=== PATIENT | female | born 1955 | race Caucasian/White ===

== ENCOUNTER → 2019-06-12 | Outpatient (CLI) | payer OTHER, MEDICARE ==
[2019-06-12 13:49] LABS: ANION GAP 9 (5-19); BLOOD UREA NITROGEN 27 mg/dL (7-20); CALCIUM 10.1 mg/dL (8.4-10.2); CARBON DIOXIDE 29 mmol/L (22-30); CHLORIDE 97 mmol/L (98-107); GLUCOSE 86 mg/dL (75-110); POTASSIUM 4.5 mmol/L (3.6-5.0)
== END ==
LOC: OD 12:52
PROVIDERS: ATTEND Family Medicine Geriatric Medicine
DX: M79.673 Pain in unspecified foot (principal); Z79.899 Other long term (current) drug therapy
CPT/HCPCS: 36415; 80048; 84550

== ENCOUNTER → 2019-10-16 | Outpatient (CLI) | payer OTHER, MEDICARE | LOC: OD 11:24 | PROVIDERS: ATTEND Family Medicine Geriatric Medicine | DX: J02.9 Acute pharyngitis, unspecified (principal); Z79.899 Other long term (current) drug therapy | CPT/HCPCS: 87070; 87880 ==

== ENCOUNTER → 2019-11-16 | Outpatient (CLI) | payer OTHER, MEDICARE ==
--- NOTE | 2019-11-16 11:56 | WOMENS IMAGING REPORT ---
EXAM DESCRIPTION: BILAT SCREENING MAMMO W/CAD IMAGES COMPLETED DATE/TIME: 11/16/2019 10:47 am REASON FOR STUDY: Z12.31 SCREENING MAMMO Z12.31 ENCNTR SCREEN MAMMOGRAM FOR MALIGNANT NEOPLASM OF B RE COMPARISON: None. EXAM PARAMETERS: Standard craniocaudal and mediolateral oblique views of each breast recorded using digital acquisition. Read with the assistance of CAD. .[facility] - Respi Draw Bench Operator Helper Version 9.2 LIMITATIONS: None. FINDINGS: No suspicious masses, suspicious calcifications or architectural distortion. No areas of c oncern. IMPRESSION: NEGATIVE MAMMOGRAM. BIRADS 1 BREAST DENSITY: d. The breasts are extremely dense, which lowers the sensitivity of mammography. BIRAD: ASSESSMENT: 1 NEGATIVE RECOMMENDATION: ROUTINE SCREENING COMMENT: The patient has been notified of the results by letter per MQSA requirements. Additional no tification policies are in place for contacting patient with suspicious or incomplete findings. Quality ID #[id number]: The [employer] recommends an annual screening mammogram for women aged 40 years or over. This facility utilizes a reminder system to ensure that all patients receive reminder letters, and/or direct phone calls for appointments. This includes reminders for routine scr eening mammograms, diagnostic mammograms, or other Breast Imaging Interventions when appropriate. Th is patient will be placed in the appropriate reminder system. TECHNICAL DOCUMENTATION: FINDING NUMBER: (1) ASSESSMENT: (1) JOB ID: [id number] 2010 [employer]- All Rights Reserved Reading location - IP/workstation name: [email or web address]
== END ==
LOC: WI 10:15
PROVIDERS: ATTEND Family Medicine Geriatric Medicine
DX: Z12.31 Encounter for screening mammogram for malignant neoplasm of breast (principal)
CPT/HCPCS: 77067

== ENCOUNTER 2019-12-24 12:11 | Inpatient (IN) | payer OTHER, MEDICARE ==
[2019-12-24 15:41] LABS: ABSOLUTE LYMPHOCYTES (AUTO) 0.5 10^3/uL (0.5-4.7); ABSOLUTE MONOCYTES (AUTO) 0.3 10^3/uL (0.1-1.4); ABSOLUTE NEUT (AUTO) 4.6 10^3/uL (1.7-8.2); BASOPHILS % (AUTO) 0.5 % (0-2); EOSINOPHILS % (AUTO) 0.9 % (0-6); HEMATOCRIT 32.2 % (36.0-47.0); LYMPHOCYTES % (AUTO) 9.4 % (13-45); MEAN CORPUSCULAR HEMOGLOBIN 28.4 pg (27.0-33.4); MEAN CORPUSCULAR HGB CONC 34.1 g/dL (32.0-36.0); MEAN CORPUSCULAR VOLUME 83 fl (80-97); PLATELET COUNT 146 10^3/uL (150-450); RED BLOOD COUNT 3.88 10^6/uL (3.72-5.28); RED CELL DISTRIBUTION WIDTH 14.9 % (11.5-14.0); SEGMENTED NEUTROPHILS % (AUTO) 84.2 % (42-78); TOTAL CELLS COUNTED % (AUTO) 100 %; WHITE BLOOD COUNT 5.4 10^3/uL (4.0-10.5)
--- NOTE | 2019-12-24 16:07 | RADIOLOGY REPORT (SQ) ---
EXAM DESCRIPTION: CHEST SINGLE VIEW IMAGES COMPLETED DATE/TIME: 12/24/2019 3:56 pm REASON FOR STUDY: SOB COMPARISON: 04/23/2014 NUMBER OF VIEWS: One view. TECHNIQUE: Single frontal radiographic view of the chest acquired. LIMITATIONS: None. FINDINGS: LUNGS AND PLEURA: No opacities, masses or pneumothorax. No pleural effusion. Attenuated bl ood vessels and flattened nicole-diaphragms. MEDIASTINUM AND HILAR STRUCTURES: No masses. Contour normal. HEART AND VASCULAR STRUCTURES: Heart normal in size. Normal vasculature. BONES: No acute findings. HARDWARE: None in the chest. OTHER: No other significant finding. IMPRESSION: COPD. NO ACUTE RADIOGRAPHIC FINDING IN THE CHEST. TECHNICAL DOCUMENTATION: JOB ID: [id number] 2010 [employer]- All Rights Reserved Reading location - IP/workstation name: [email or web address]
--- NOTE | 2019-12-24 16:51 | ER Document Report ---
ED General - General Chief Complaint: Shortness Of Breath Stated Complaint: SHORTNESS OF BREATH Time Seen by Provider: 12/24/19 14:59 Primary Care Provider: PRINCE GTZ MD [Primary Care Provider] - Follow up as needed Mode of Arrival: Ambulatory Information source: Patient TRAVEL OUTSIDE OF THE [place] IN LAST 30 DAYS: No - HPI Notes: Patient comes in states she has had cough congestion for several days. She states she is had fever just 1 time this morning. It was subjective. She has had some minor chest discomfort over the last 2 to 3 days. It is intermittent and crampy. It radiates across her chest. It is worse with cough or movement and better with rest. She has had some mild shortness of breath. She has had mainly a dry cough. She denies any known covert virus exposures. She states she did have a negative covered test in an outlying facility several days ago. No vomiting or diarrhea. She states she is a former smoker and does have a history of COPD. She states she has not received any significant relief from using her inhalers at home. - Related Data Allergies/Adverse Reactions: Sulfa (Sulfonamide Antibiotics) Allergy (Verified 12/24/19 15:22) Past Medical History - General Information source: Patient - Social History Smoking Status: Former Smoker Frequency of alcohol use: Rare Drug Abuse: None Family History: Reviewed & Not Pertinent Patient has homicidal ideation: No Review of Systems - Review of Systems Constitutional: Chills, Fever, Malaise, Weakness Cardiovascular: Chest pain. denies: Palpitations Respiratory: Cough, Short of breath -: Yes All other systems reviewed and negative Physical Exam - Vital signs Vitals: Temp Pulse Resp BP Pulse Ox 98.8 F 63 16 119/67 99 12/24/19 14:06 12/24/19 14:06 12/24/19 14:06 12/24/19 14:06 12/24/19 14:06 Interpretation: Normal - General General appearance: Appears well, Alert - HEENT Head: Normocephalic, Atraumatic Eyes: Normal Pupils: PERRL - Respiratory Respiratory status: No respiratory distress Chest status: Nontender Breath sounds: Rhonchi - Bilateral Chest palpation: Normal - Cardiovascular Rhythm: Regular Heart sounds: Normal auscultation Murmur: No - Abdominal Inspection: Normal Distension: No distension Bowel sounds: Normal Tenderness: Nontender Organomegaly: No organomegaly - Back Back: Normal, Nontender - Extremities General upper extremity: Normal inspection, Nontender, Normal color, Normal ROM, Normal temperature General lower extremity: Normal inspection, Nontender, Normal color, Normal ROM, Normal temperature, Normal weight bearing. No: Sandra's sign - Neurological Neuro grossly intact: Yes Cognition: Normal Orientation: AAOx4 [place] Coma Scale Eye Opening: Spontaneous [place] Coma Scale Verbal: Oriented [place] Coma Scale Motor: Obeys Commands [place] Coma Scale Total: 15 Speech: Normal Motor strength normal: LUE, RUE, LLE, RLE Sensory: Normal - Psychological Associated symptoms: Normal affect, Normal mood - Skin Skin Temperature: Warm Skin Moisture: Dry Skin Color: Normal Course - Re-evaluation Re-evalutation: 12/24/19 18:10 Patient presented with shortness of breath and worsening cough and subjective fevers. Initial vital signs were not significantly remarkable laboratories were only remarkable for a low sodium however patient was tell me that her sodium is always low. When I did a set of repeat vitals for discharge patient's fever is now 103. Patient is slightly tachypneic approximately 22 to 24 breaths/min. She is not tachycardic but she is on a beta-elizabet. Although she tested negative for COVID 2 days ago her symptoms seem somewhat suspicious of COVID. She has no known exposures. In addition I am going to give her some fluids to help with her hyponatremia. On review the last sodium here was in May of this year and it was normal. A CT scan is also pending. Patient's pneumonia scores, curb 65 and port are both borderline for admission. Given the entire clinical picture of suspected COVID, increasing fever, saturations going from 98% on room air to 94% on room air now and slightly increasing tachypnea as well as with hyponatremia it seems prudent to have patient placed in the hospital for further evaluation and treatment. - Vital Signs Vital signs: Temp Pulse Resp BP Pulse Ox 98.8 F 63 16 119/67 99 12/24/19 14:06 12/24/19 14:06 12/24/19 14:06 12/24/19 14:06 12/24/19 14:06 - Laboratory Result Diagrams: 12/24/19 16:25 12/24/19 16:25 Laboratory results interpreted by me: 12/24/19 12/24/19 16:25 16:25 Hgb 11.2 L Hct 33.3 L RDW 14.5 H Plt Count 141 L Sodium 125.3 L Chloride 90 L Glucose 72 L AST 84 H ALT 45 H - Diagnostic Test Radiology reviewed: Image reviewed, Reports reviewed Discharge - Discharge Clinical Impression: Suspected COVID-19 virus infection, Hyponatremia Fever Qualifiers: Fever type: unspecified Qualified Code(s): R50.9 - Fever, unspecified Condition: Serious Disposition: ADMITTED INPATIENT Admitting Provider: Domingo (Hospitalist) Unit Admitted: Medical Floor Referrals: PRINCE GTZ MD [Primary Care Provider] - Follow up as needed
[2019-12-24 17:03] LABS: ALBUMIN 4.4 g/dL (3.5-5.0); ALKALINE PHOSPHATASE 69 U/L (38-126); ANION GAP 7 (5-19); ASPARTATE AMINO TRANSFERASE 84 U/L (14-36); BILIRUBIN,TOTAL 0.6 mg/dL (0.2-1.3); BLOOD UREA NITROGEN 14 mg/dL (7-20); CALCIUM 8.9 mg/dL (8.4-10.2); CARBON DIOXIDE 28 mmol/L (22-30); CHLORIDE 90 mmol/L (98-107); GLUCOSE 72 mg/dL (75-110); POTASSIUM 4.2 mmol/L (3.6-5.0); TOTAL PROTEIN 7.9 g/dL (6.3-8.2)
[2019-12-24 17:55] LABS: HEMATOCRIT 33.3 % (36.0-47.0); HEMOGLOBIN 11.2 g/dL (12.0-15.5); MEAN CORPUSCULAR HGB CONC 33.6 g/dL (32.0-36.0); MEAN CORPUSCULAR VOLUME 83 fl (80-97); PLATELET COUNT 141 10^3/uL (150-450); RED BLOOD COUNT 3.99 10^6/uL (3.72-5.28); RED CELL DISTRIBUTION WIDTH 14.5 % (11.5-14.0); WHITE BLOOD COUNT 5.8 10^3/uL (4.0-10.5)
[2019-12-24] MEDS ORDERED: AZITHROMYCIN 250 MG TABLET PO ONE (18:01)
[2019-12-24] MEDS ORDERED: NORMAL SALINE 1000 ML 1,000 ML IV ONE (18:01)
[2019-12-24] MEDS ORDERED: CEFTRIAXONE 2 GM/D5W RTU 2 GM/50 ML RTUPB IV ONE (18:01)
[2019-12-24 19:04] LABS: C-REACTIVE PROTEIN 87.1 mg/L (<10.0)
[2019-12-24] MEDS ORDERED: ALBUTEROL SULFATE 0.083% NEB 2.5 MG/3 ML AMPUL NEB PRN (19:19)
[2019-12-24] MEDS ORDERED: ACETAMINOPHEN 325 MG TABLET PO PRN (19:19)
[2019-12-24] MEDS ORDERED: PROMETHAZINE HCL INJ 25 MG/1 ML VIAL IV PRN (19:19)
[2019-12-24] MEDS ORDERED: MAG HYDROX/AL HYDROX/SIMETH SUSP 30 ML UDCUP PO PRN (19:19)
[2019-12-24] MEDS ORDERED: ALBUTEROL SULFATE HFA (90 MCG/PUFF) 8 GM MDI IH PRN (19:31)
[2019-12-24] MEDS ORDERED: DEXTROSE 50%-WATER 25 GM/50 ML DISP.SYRIN IV PRN ×2 (19:39)
[2019-12-24] MEDS ORDERED: GLUCAGON,HUMAN RECOMB 1 MG INJ IM PRN (19:39)
[2019-12-24] MEDS ORDERED: DEXTROSE 40% GEL 15 GM TUBE PO PRN ×2 (19:39)
[2019-12-24] MEDS ORDERED: ALBUTEROL SULFATE HFA (90 MCG/PUFF) 200 PUFF/8.5 GM MDI IH PRN (19:48)
[2019-12-24 19:56] LABS: ABSOLUTE LYMPHOCYTES# (MANUAL) 0.5 10^3/uL (0.5-4.7); ABSOLUTE MONOCYTES # (MANUAL) 0.3 10^3/uL (0.1-1.4); BASOPHILS % (MANUAL) 0 % (0-2); EOSINOPHILS % (MANUAL) 0 % (0-6); LYMPHOCYTES % (MANUAL) 9 % (13-45); MONOCYTES % (MANUAL) 5 % (3-13); SEGMENTED NEUTROPHILS % (MAN) 86 % (42-78); TOTAL CELLS COUNTED 100; TOXIC VACUOLATION PRESENT
[2019-12-24 19:57] LABS: ANISOCYTOSIS SLIGHT
[2019-12-24 19:58] LABS: BURR CELLS SLIGHT; PLATELET COMMENT DECREASED
--- NOTE | 2019-12-24 20:09 | PDOC H&P ---
History of Present Illness Admission Date/PCP: 12/24/19 19:30 PRINCE GTZ MD Patient complains of: Shortness of breath History of Present Illness: ALONZO DAWKINS is a 64 year old female with a history of coronary artery disease, COPD, hyperlipidemia, depression, diabetes mellitus and hyponatremia presents with several weeks of increasing shortness of breath. She states that she has been having a cough. Lately it is productive of white sputum. Until today she has been afebrile. She spiked a fever 103.1 F. In the emergency department her white blood cell count is normal at 5.8 but her differential is pending. Her d-dimer is elevated at 2.84 but her ferritin, LDH and C-reactive protein are all pending. Her serum sodium is 125. Her glucose is only 72. With the increasing shortness of breath and fever as well as increased d-dimer the patient has a CT angiogram of the chest pending. She states that she tested negative for Covid-19 at a walk-in clinic several days ago. She did state the result was negative however it has such a low sensitivity she has been tested again. Her chest x-ray is fairly unremarkable but this can be part of an initial presentation of Covid-19. She will be admitted to the hospitalist service. Covid-19 serology is pending. She will be placed on full-strength anticoagulation with her d-dimer above 1.0. LDH, ferritin and C-reactive protein are pending. She will be on a fluid restriction as her sodium is only 125. Past Medical History Cardiac Medical History: Reports: Coronary Artery Disease - 1 stent, Hyperlipidema, Hypertension Pulmonary Medical History: Reports: Chronic Obstructive Pulmonary Disease (COPD) EENT Medical History: Reports: Cataracts Neurological Medical History: Denies: Ischemic CVA, Multiple Sclerosis Endocrine Medical History: Reports: Diabetes Mellitus Type 1 - Per the patient., Hypothyroidism Renal/ Medical History: Reports: Chronic Kidney Disease, Other - Patient reports chronic kidney disease despite normal renal function Malignancy Medical History: Denies: Breast Cancer, Colorectal Cancer, Liver Cancer, Lung Cancer GI Medical History: Denies: Cirrhosis, Gastroesophageal Reflux Disease, Hiatal Hernia Musculoskeltal Medical History: Denies: Fibromyalgia Skin Medical History: Denies: Eczema, Psoriasis Psychiatric Medical History: Reports: Depression Traumatic Medical History: Reports: None Hematology: Reports: Anemia - Possible myelodysplasia Past Surgical History Past Surgical History: Reports: Appendectomy, Cardiac Catheterization, Coronary Stent, Thyroidectomy, Tubal Ligation Social History Information Source: Patient Lives with: Spouse/Significant other Smoking Status: Former Smoker Electronic Cigarette use?: No Frequency of Alcohol Use: Rare Hx Recreational Drug Use: No Hx Prescription Drug Abuse: No - Advance Directive Resuscitation Status: Full Code Surrogate healthcare decision maker:: Family History Family History: CAD, DM, Hypertension Parental Family History Reviewed: Yes Children Family History Reviewed: Yes Sibling(s) Family History Reviewed.: Yes Medication/Allergy Allergies/Adverse Reactions: Sulfa (Sulfonamide Antibiotics) Allergy (Verified 12/24/19 15:22) Review of Systems All systems: reviewed and no additional remarkable complaints except as stated Constitutional: PRESENT: fever(s) Respiratory: PRESENT: cough, dyspnea, sputum Psychiatric: PRESENT: depression Allergic/Immunologic: PRESENT: seasonal rhinorrhea Physical Exam Vital Signs: Temp Pulse Resp BP Pulse Ox 103.1 F H 82 22 H 132/96 H 94 12/24/19 17:58 12/24/19 17:58 12/24/19 17:58 12/24/19 17:58 12/24/19 17:58 Intake & Output 12/23/19 12/24/19 12/25/19 06:59 06:59 06:59 Intake Total 50 Balance 50 Weight 79.832 kg General appearance: PRESENT: cooperative, mild distress, well-developed. ABSENT: disheveled Head exam: PRESENT: atraumatic, normocephalic Eye exam: PRESENT: conjunctiva pink, EOMI. ABSENT: scleral icterus Ear exam: PRESENT: normal external ear exam. ABSENT: bleeding, drainage Mouth exam: PRESENT: moist, tongue midline Neck exam: PRESENT: other - Incision scar from thyroidectomy. ABSENT: carotid bruit, JVD, lymphadenopathy Respiratory exam: PRESENT: clear to auscultation luz maria, symmetrical, tachypnea. ABSENT: accessory muscle use, chest wall tenderness, rales, rhonchi, wheezes Cardiovascular exam: PRESENT: RRR, +S1, +S2. ABSENT: bradycardia, diastolic murmur, irregular rhythm, systolic murmur, tachycardia Pulses: PRESENT: normal radial pulses, normal dorsalis pedis pul GI/Abdominal exam: PRESENT: normal bowel sounds, soft. ABSENT: distended, guarding, tenderness Rectal exam: PRESENT: deferred Gentrourinary exam: ABSENT: indwelling catheter Extremities exam: PRESENT: full ROM. ABSENT: joint swelling, pedal edema Musculoskeletal exam: PRESENT: ambulatory, normal inspection. ABSENT: deformity, dislocation Neurological exam: PRESENT: alert, awake, oriented to person, oriented to place, oriented to time, oriented to situation, CN II-XII grossly intact. ABSENT: altered, motor sensory deficit Psychiatric exam: PRESENT: appropriate affect. ABSENT: agitated, anxious Focused psych exam: ABSENT: delusional, paranoid, restlessness Skin exam: PRESENT: dry, normal color, warm. ABSENT: rash, urticaria Results Laboratory Results: 12/24/19 16:25 12/24/19 16:25 12/24/19 12/24/19 12/24/19 15:01 15:01 16:25 WBC Cancelled RBC Cancelled Hgb Cancelled Hct Cancelled MCV Cancelled MCH Cancelled MCHC Cancelled RDW Cancelled Plt Count Cancelled Seg Neutrophils % Cancelled Sodium Cancelled 125.3 L Potassium Cancelled 4.2 Chloride Cancelled 90 L Carbon Dioxide Cancelled 28 Anion Gap Cancelled 7 BUN Cancelled 14 Creatinine Cancelled 0.86 Est GFR ( Amer) Cancelled > 60 Est GFR (Non-Af Amer) Cancelled Glucose Cancelled 72 L Calcium Cancelled 8.9 Total Bilirubin Cancelled 0.6 AST Cancelled 84 H Alkaline Phosphatase Cancelled 69 Total Protein Cancelled 7.9 Albumin Cancelled 4.4 12/24/19 16:25 WBC 5.8 RBC 3.99 Hgb 11.2 L Hct 33.3 L MCV 83 MCH 28.0 MCHC 33.6 RDW 14.5 H Plt Count 141 L Seg Neutrophils % Sodium Potassium Chloride Carbon Dioxide Anion Gap BUN Creatinine Est GFR ( Amer) Est GFR (Non-Af Amer) Glucose Calcium Total Bilirubin AST Alkaline Phosphatase Total Protein Albumin Impressions: Chest X-Ray 12/24/19 15:20 IMPRESSION: COPD. NO ACUTE RADIOGRAPHIC FINDING IN THE CHEST. Assessment and Plan - Diagnosis (1) Suspected COVID-19 virus infection Is this a current diagnosis for this admission?: Yes Plan: There are several reasons to suspect Covid-19 including her fever, shortness of breath with cough, elevated d-dimer and elevated AST and ALT. CT angiogram of the chest is still pending. C-reactive protein, ferritin and LDH are also pending. We will treat her as a suspected positive patient with antibiotics, Decadron and supplements. (2) Fever Qualifiers: Fever type: unspecified Qualified Code(s): R50.9 - Fever, unspecified Is this a current diagnosis for this admission?: Yes Plan: Fever along with some of her symptoms and laboratory studies certainly create a high index of suspicion for Covid-19. Acetaminophen for elevated temperature and antibiotics as well as other recommended COVID treatments until the serology returns. We will utilize an albuterol inhaler as opposed to nebulizers. Oxygen by nasal cannula if required. (3) Elevated liver function tests Is this a current diagnosis for this admission?: Yes Plan: She reports rare to occasional glasses of wine. No other indication for elevated transaminases. Transaminitis is 1 of the abnormalities seen in COVID. Continue to monitor. (4) Elevated d-dimer Is this a current diagnosis for this admission?: Yes Plan: Await results of the CT angiogram of the chest and abdomen. Because there is a suspicion of Covid-19 and her d-dimer is greater than 1.0 she will be placed on full anticoagulant therapy with Lovenox 1 mg/kg every 12 hours. (5) COPD (chronic obstructive pulmonary disease) with chronic bronchitis Is this a current diagnosis for this admission?: Yes Plan: The patient reports COPD. She states that she has not had an exacerbation in a long time. She does have an albuterol rescue inhaler at home but has been not on any chronic daily inhaler therapy. She does not use oxygen at home. (6) Coronary artery disease Qualifiers: Coronary Disease-Associated Artery/Lesion type: [place] artery [place] vs. transplanted heart: [place] heart Associated angina: without angina Qualified Code(s): I25.10 - Atherosclerotic heart disease of [place] coronary artery without angina pectoris Is this a current diagnosis for this admission?: Yes Plan: The patient states that she had a stent placed approximately 10 years ago or more. She was following with cardiology but then decided to change practitioners. She states she would be seeing Dr. Frazier at [facility] to establish with new cardiology. We will continue aspirin, statin and her other cardiac medications once reconciled. She will be on a cardiac diet. (7) Hyponatremia Is this a current diagnosis for this admission?: Yes Plan: The patient states that she has chronic kidney disease. Her renal function is normal at this time. I will place her on a fluid restriction and monitor the sodium. (8) Hypertension Qualifiers: Hypertension type: essential hypertension Qualified Code(s): I10 - Essential (primary) hypertension Is this a current diagnosis for this admission?: Yes Plan: The patient cannot remember all of her medications nor the doses. He thinks she is on lisinopril and bisoprolol. Continue antihypertensive medications once they are reconciled. (9) Hypothyroidism, postsurgical Is this a current diagnosis for this admission?: Yes Plan: The patient states that there were lesions on her thyroid that were "premal ignant". She underwent thyroidectomy. Continue levothyroxine. (10) Depression Qualifiers: Depression Type: unspecified Qualified Code(s): F32.9 - Major depressive disorder, single episode, unspecified Is this a current diagnosis for this admission?: Yes Plan: Continue antidepressant. I believe it was citalopram. The patient cannot remember. Await medication reconciliation. (11) Diabetes mellitus Qualifiers: Diabetes mellitus type: type 1 Diabetes mellitus complication status: without complication Qualified Code(s): E10.9 - Type 1 diabetes mellitus without complications Is this a current diagnosis for this admission?: Yes Plan: The patient reports type 1 diabetes mellitus however she mentions no insulin on her medication list. She could not remember all of her medications. Await medication reconciliation from pharmacy. She will be on a controlled carbohydrate diet with Accu-Cheks before meals and bedtime as well as a regular insulin sliding scale. - Time Time Spent with patient: 35 or more minutes Medications reviewed and adjusted accordingly: Yes Anticipated Discharge Disposition: Home, Self Care Anticipated Discharge: Other - Unknown at this time. Pending results of [facility]any[facility] gatTheraVid. - Inpatient Certification Based on my medical assessment, after consideration of the patient's comorbidities, presenting symptoms, or acuity I expect that the services needed warrant INPATIENT care.: Yes I certify that my determination is in accordance with my understanding of Medicare's requirements for reasonable and necessary INPATIENT services [42 CFR 412.3e].: Yes Medical Necessity: Failure to Improve With Outpatient Therapy, Significant Comorbidiites Make Outpatient Treatment Too Risky, Need Close Monitoring Due to Risk of Patient Decompensation, Need For Continuous Telemetry Monitoring, Need for IV Antibiotics Post Hospital Care: D/C Dairy Inspector Documentation
--- NOTE | 2019-12-24 20:22 | RADIOLOGY REPORT (SQ) ---
EXAM DESCRIPTION: CTA chest with contrast CLINICAL HISTORY: 64 years Female, sob/cough COMPARISON: None. TECHNIQUE: Axial images of the chest were performed utilizing intravenous contrast, with sagittal and coronal MIP images and sagittal and coronal reformatted images. This exam was performed according to our departmental dose-optimization program which includes use of Automated Exposure Control, adjustment of the mA and/or kV according to patient size and/or use of iterative reconstruction technique. FINDINGS: There is mild emphysema. No evidence of pulmonary embolus. No evidence of aortic dissection. No evidence of pulmonary infiltrate or pleural effusion. No evidence of mediastinal or hilar adenopathy. IMPRESSION: Mild emphysema.
[2019-12-24] MEDS ORDERED: ATORVASTATIN CALCIUM 40 MG TABLET PO SCH (22:00)
[2019-12-24] MEDS ORDERED: LISINOPRIL 10 MG TABLET PO SCH (22:00)
[2019-12-24] MEDS ORDERED: ASPIRIN 81 MG TABLET, ENT COATED PO SCH (22:00)
[2019-12-24] MEDS: DEXAMETHASONE SOD PHOSPHATE INJ 4 MG/1 ML VIAL IV SCH (22:15)
[2019-12-24] MEDS: MELATONIN 3 MG TABLET PO SCH (22:16)
[2019-12-24] MEDS: INSULIN REG, HUMAN 100 UNIT/ML 3 ML VIAL (PYX) SUBCUT SCH (22:22)
[2019-12-24] MEDS: ENOXAPARIN SODIUM INJ 80 MG/0.8 ML DISP.SYRIN SUBCUT SCH (22:28)
[2019-12-25 05:36] LABS: ABSOLUTE LYMPHOCYTES (AUTO) 0.4 10^3/uL (0.5-4.7); ABSOLUTE MONOCYTES (AUTO) 0.2 10^3/uL (0.1-1.4); ABSOLUTE NEUT (AUTO) 3.9 10^3/uL (1.7-8.2); BASOPHILS % (AUTO) 0.4 % (0-2); EOSINOPHILS % (AUTO) 0.2 % (0-6); HEMATOCRIT 27.4 % (36.0-47.0); HEMOGLOBIN 9.7 g/dL (12.0-15.5); LYMPHOCYTES % (AUTO) 8.5 % (13-45); MEAN CORPUSCULAR HEMOGLOBIN 28.9 pg (27.0-33.4); MEAN CORPUSCULAR HGB CONC 35.3 g/dL (32.0-36.0); MEAN CORPUSCULAR VOLUME 82 fl (80-97); MONOCYTES % (AUTO) 4.9 % (3-13); PLATELET COUNT 112 10^3/uL (150-450); RED BLOOD COUNT 3.35 10^6/uL (3.72-5.28); RED CELL DISTRIBUTION WIDTH 14.6 % (11.5-14.0); TOTAL CELLS COUNTED % (AUTO) 100 %; WHITE BLOOD COUNT 4.5 10^3/uL (4.0-10.5)
[2019-12-25 05:59] LABS: ANION GAP 10 (5-19); BLOOD UREA NITROGEN 14 mg/dL (7-20); CARBON DIOXIDE 22 mmol/L (22-30); CHLORIDE 91 mmol/L (98-107); CHOLESTEROL 122.99 mg/dL (0-200); GLUCOSE 328 mg/dL (75-110); PHOSPHORUS 3.2 mg/dL (2.5-4.5); TRIGLYCERIDES 105 mg/dL (<150)
[2019-12-25 06:08] LABS: DIRECT LDL 46 mg/dL (<100)
[2019-12-25] MEDS: DEXAMETHASONE SOD PHOSPHATE INJ 4 MG/1 ML VIAL IV SCH ×3 (06:10→22:26)
[2019-12-25 06:15] LABS: C-REACTIVE PROTEIN 150.4 mg/L (<10.0)
[2019-12-25] MEDS: ENOXAPARIN SODIUM INJ 80 MG/0.8 ML DISP.SYRIN SUBCUT SCH ×2 (09:06→22:26)
[2019-12-25] MEDS: INSULIN REG, HUMAN 100 UNIT/ML 3 ML VIAL (PYX) SUBCUT SCH ×2 (09:12→11:37)
[2019-12-25] MEDS: ZINC SULFATE 220 MG CAPSULE PO SCH (09:14)
[2019-12-25] MEDS: ASCORBIC ACID 500 MG TABLET PO SCH ×2 (09:14→17:08)
[2019-12-25] MEDS: CHOLECALCIFEROL (D3) 1,000 UNIT (25 MCG) TABLET PO SCH (09:16)
[2019-12-25] MEDS: CEFTRIAXONE 1 GM/D5W RTU 1 GM/50 ML RTUPB IV SCH (10:08)
[2019-12-25] MEDS ORDERED: INSULIN REG, HUMAN 100 UNIT/ML 3 ML VIAL (PYX) SUBCUT ONE (10:30)
[2019-12-25] MEDS ORDERED: DILTIAZEM HCL INJ 25 MG/5 ML VIAL IV ONE (11:21)
[2019-12-25 12:00] LABS: FREE T3 1.81 pg/mL (2.77-5.27); FREE T4 (FREE THYROXINE) 1.45 ng/dL (0.78-2.19)
[2019-12-25] MEDS ORDERED: INSULIN LISPRO 100 UNIT/ML 3 ML VIAL SUBCUT ONE ×2 (12:30→22:30)
[2019-12-25] MEDS: INSULIN LISPRO 100 UNIT/ML 3 ML VIAL SUBCUT SCH ×2 (17:07→22:21)
[2019-12-25] MEDS: AZITHROMYCIN 250 MG TABLET PO SCH (17:08)
[2019-12-25] MEDS ORDERED: (PENDING PHARMACY ID) (Cetirizine Hcl [Zyrtec] 10 MG) PO PRN (20:13)
[2019-12-25] MEDS ORDERED: INSULIN NPH HUMAN ISOPHANE 20 UNIT SUBCUT SCH (20:15)
[2019-12-25] MEDS ORDERED: CETIRIZINE 10 MG TABLET PO PRN (20:25)
--- NOTE | 2019-12-25 20:30 | PDOC PROGRESS REPORT ---
Subjective Progress Note for:: 12/25/19 Subjective:: Patient was seen on afternoon rounds. She is found sitting up to the recliner, comfortably, on room air. She is speaking full sentences without increased work of breathing. She reports that her dyspnea is resolved. She does continue to have a productive cough and generalized fatigue. Otherwise, she reports that she is feeling well and has no new questions or con cerns. She denies fever, chills, chest pain, palpitations, Abdominal pain, nausea, vomiting, and diarrhea. No concerns per nursing. Reason For Visit: COPD EXACERBATION,CORONARY ARTERY DISEASE,HYPERTEN Physical Exam Vital Signs: Temp Pulse Resp BP Pulse Ox 98.1 F 70 20 137/42 H 98 12/25/19 16:02 12/25/19 16:02 12/25/19 16:02 12/25/19 16:02 12/25/19 16:02 Intake & Output 12/24/19 12/25/19 12/26/19 06:59 06:59 06:59 Intake Total 1050 530 Output Total 200 Balance 1050 330 Weight 79.832 kg General appearance: PRESENT: no acute distress, cooperative, well-developed, well-nourished - overweight Head exam: PRESENT: atraumatic, normocephalic Eye exam: PRESENT: conjunctiva pink, EOMI, PERRLA. ABSENT: scleral icterus Mouth exam: PRESENT: moist, tongue midline Respiratory exam: PRESENT: clear to auscultation luz maria, rhonchi, symmetrical, unlabored. ABSENT: rales, wheezes Cardiovascular exam: PRESENT: RRR. ABSENT: diastolic murmur, rubs, systolic murmur Vascular exam: PRESENT: normal capillary refill Extremities exam: PRESENT: full ROM. ABSENT: calf tenderness, clubbing, pedal edema Musculoskeletal exam: PRESENT: ambulatory Neurological exam: PRESENT: alert, awake, oriented to person, oriented to place, oriented to time, oriented to situation, CN II-XII grossly intact. ABSENT: motor sensory deficit Psychiatric exam: PRESENT: appropriate affect, normal mood. ABSENT: homicidal ideation, suicidal ideation Skin exam: PRESENT: dry, intact, warm. ABSENT: cyanosis, rash Results Laboratory Results: 12/25/19 05:06 12/25/19 05:06 07/27/20 07/27/20 07/28/20 15:01 16:25 05:06 WBC 5.4 5.8 4.5 RBC 3.88 3.99 3.35 L Hgb 11.0 L 11.2 L 9.7 L Hct 32.2 L 33.3 L 27.4 L MCV 83 83 82 MCH 28.4 28.0 28.9 MCHC 34.1 33.6 35.3 RDW 14.9 H 14.5 H 14.6 H Plt Count 146 L 141 L 112 L Seg Neutrophils % 84.2 H 86.0 H Sodium Potassium Chloride Carbon Dioxide Anion Gap BUN Creatinine Est GFR ( Amer) Glucose Calcium Phosphorus Magnesium C-Reactive Protein Triglycerides Cholesterol LDL Cholesterol Direct VLDL Cholesterol HDL Cholesterol TSH Free T4 Free T3 pg/mL 12/25/19 12/25/19 12/25/19 05:06 05:06 05:06 WBC RBC Hgb Hct MCV MCH MCHC RDW Plt Count Seg Neutrophils % Sodium 122.5 L Potassium 4.0 Chloride 91 L Carbon Dioxide 22 Anion Gap 10 BUN 14 Creatinine 0.74 Est GFR ( Amer) > 60 Glucose 328 H Calcium 8.0 L Phosphorus 3.2 Magnesium 1.5 L C-Reactive Protein 150.4 H Triglycerides 105 Cholesterol 122.99 LDL Cholesterol Direct 46 VLDL Cholesterol 21.0 HDL Cholesterol 52 TSH 0.13 L Free T4 1.45 Free T3 pg/mL 1.81 L Impressions: Chest X-Ray 12/24/19 15:20 IMPRESSION: COPD. NO ACUTE RADIOGRAPHIC FINDING IN THE CHEST. Chest/Abdomen CTA 12/24/19 18:00 IMPRESSION: Mild emphysema. Assessment and Plan - Diagnosis (1) Suspected COVID-19 virus infection Is this a current diagnosis for this admission?: Yes Plan: Rapid COVID-19 test yesterday is negative. Continue to have a high suspicion for COVID-19 virus infection due to the patient's fever and symptoms of dyspnea/cough without clear source of COPD exacerbation or pneumonia to attribute the symptoms to. She also has numerous laboratory results supportive of COVID-19; elevated d- dimer, transaminases, CRP, LDH, ferritin. CTA negative for pulmonary embolus and pneumonia. COPD exacerbation is not suspected (no wheezing on exam) and certainly would not be because of the above-mentioned laboratory changes. Patient is admitted to medical floor and continued cardiac telemetry. Due to elevated d-dimer, she is placed on full dose Lovenox. She is empirically placed on IV azithromycin and ceftriaxone. Start Decadron 4 mg IV twice daily. Continue vitamin C, vitamin D, zinc, and melatonin supplementation. Provide supplemental oxygen as needed to maintain saturations greater than 89%. Encourage pulmonary toilet. Contact and droplet precautions. Send out testing pending. Discussed this with both nursing personnel supervisor and infectious control today; patient meets clinical criteria for COVID-19 despite her prior negative testing. (2) COPD (chronic obstructive pulmonary disease) with chronic bronchitis Is this a current diagnosis for this admission?: Yes Plan: The patient reports COPD. She states that she has not had an exacerbation in a long time. She does have an albuterol rescue inhaler at home but has been not on any chronic daily inhaler therapy. She does not use oxygen at home. Currently on azithromycin and dexamethasone secondary to suspected COVID. No wheezing noted on exam today. Encourage pulmonary toilet with incentive spirometer, flutter valve. (3) Coronary artery disease Qualifiers: Coronary Disease-Associated Artery/Lesion type: [place] artery [place] vs. transplanted heart: [place] heart Associated angina: without angina Qualified Code(s): I25.10 - Atherosclerotic heart disease of [place] coronary artery without angina pectoris Is this a current diagnosis for this admission?: Yes Plan: The patient states that she had a stent placed approximately 10 years ago or more. She was following with cardiology but then decided to change practitioners. She states she would be seeing Dr. Frazier at [facility] to establish with new cardiology. Resume aspirin and statin therapy. Resume a home antihypertensive regiment of amlodipine, lisinopril/HCTZ, bisprolol, and hydralazine. Cardiac diet. (4) Depression Qualifiers: Depression Type: unspecified Qualified Code(s): F32.9 - Major depressive disorder, single episode, unspecified Is this a current diagnosis for this admission?: Yes Plan: Home dose Celexa. Monitor QTC while given concurrently with azithromycin. (5) Diabetes mellitus Qualifiers: Diabetes mellitus type: type 1 Diabetes mellitus complication status: without complication Qualified Code(s): E10.9 - Type 1 diabetes mellitus without complications Is this a current diagnosis for this admission?: Yes Plan: A1c 6.4%. Resume home dose NPH. Accu-Cheks before meals and at bedtime with Humalog per sliding scale coverage. Hypoglycemia protocol. Cardiac/consistent carb diet. (6) Elevated d-dimer Is this a current diagnosis for this admission?: Yes Plan: CTA chest negative for pulmonary embolus. Because there is a suspicion of Covid-19 and her d-dimer is greater than 1.0 she will be placed on full anticoagulant therapy with Lovenox 1 mg/kg every 12 ho urs. Follow-up d-dimer. (7) Elevated liver function tests Is this a current diagnosis for this admission?: Yes Plan: Resolved. She reports rare to occasional glasses of wine. No other indication for elevated transaminases. Transaminitis is 1 of the abnormalities seen in COVID. Continue to monitor. (8) Fever Qualifiers: Fever type: unspecified Qualified Code(s): R50.9 - Fever, unspecified Is this a current diagnosis for this admission?: Yes Plan: Fever along with some of her symptoms and laboratory studies certainly create a high index of suspicion for Covid-19. T-max 103.1/24 hours. Acetaminophen for elevated temperature and antibiotics as well as other recommended COVID treatments until the serology returns Blood cultures (1/4 bottles) shows gram-positive cocci. Continue IV azithromycin and ceftriaxone. Repeat blood cultures in the morning. (9) Hypertension Qualifiers: Hypertension type: essential hypertension Qualified Code(s): I10 - Essential (primary) hypertension Is this a current diagnosis for this admission?: Yes Plan: Resume a home antihypertensive regiment of amlodipine, lisinopril/HCTZ, bisprolol, and hydralazine. Cardiac diet. (10) Hyponatremia Is this a current diagnosis for this admission?: Yes Plan: Chronic per patient, however, labs from May 2019 show sodium 134.8; therefore, her hyponatremia today is significantly lower than what is presumed to be her baseline. Sodium trending down. Liberalize dietary sodium. Fluid restrict 1.2 L/daily Follow up chemistry. (11) Hypothyroidism, postsurgical Is this a current diagnosis for this admission?: Yes Plan: Continue home dose levothyroxine. - Time Time Spent with patient: 35 or more minutes Medications reviewed and adjusted accordingly: Yes Anticipated Discharge Disposition: Home, Self Care Anticipated Discharge: within 48 hours
[2019-12-25 21:25] LABS: APPEARANCE,URINE CLEAR; BILIRUBIN,URINE NEGATIVE (NEGATIVE); COLOR,URINE YELLOW; GLUCOSE, URINE >=500 mg/dL (NEGATIVE); KETONES,URINE NEGATIVE (NEGATIVE); PROTEIN,URINE 100 mg/dL (NEGATIVE); URINE SPECIFIC GRAVITY 1.024; UROBILINOGEN,URINE NEGATIVE mg/dL (<2.0)
[2019-12-25] MEDS ORDERED: [UNRECOGNIZED DRUG - OTHER] PO SCH (22:00)
[2019-12-25] MEDS ORDERED: CALCIUM CARBONATE PO SCH (22:00)
[2019-12-25] MEDS ORDERED: VITAMIN D3 PO SCH (22:00)
[2019-12-25] MEDS ORDERED: INSULIN LISPRO 100 UNIT/ML 3 ML VIAL ONE (22:21)
[2019-12-25] MEDS: CALCIUM CARBONATE 600 MG/VITAMIN D3 400 UNIT TABLET PO SCH (22:26)
[2019-12-25] MEDS: ATORVASTATIN CALCIUM 20 MG TABLET PO SCH (22:26)
[2019-12-25] MEDS: MELATONIN 3 MG TABLET PO SCH (22:26)
[2019-12-26] MEDS: DEXAMETHASONE SOD PHOSPHATE INJ 4 MG/1 ML VIAL IV SCH ×3 (05:47→21:43)
[2019-12-26 06:11] LABS: HEMOGLOBIN 9.2 g/dL (12.0-15.5); MEAN CORPUSCULAR HGB CONC 35.3 g/dL (32.0-36.0); MEAN CORPUSCULAR VOLUME 82 fl (80-97); PLATELET COUNT 126 10^3/uL (150-450); RED BLOOD COUNT 3.16 10^6/uL (3.72-5.28); RED CELL DISTRIBUTION WIDTH 14.7 % (11.5-14.0); WHITE BLOOD COUNT 5.7 10^3/uL (4.0-10.5)
[2019-12-26 06:43] LABS: ANION GAP 9 (5-19); BLOOD UREA NITROGEN 29 mg/dL (7-20); CARBON DIOXIDE 23 mmol/L (22-30); CHLORIDE 93 mmol/L (98-107); GLUCOSE 325 mg/dL (75-110); POTASSIUM 4.7 mmol/L (3.6-5.0)
[2019-12-26 06:59] LABS: C-REACTIVE PROTEIN 132.7 mg/L (<10.0)
[2019-12-26] MEDS ORDERED: INSULIN NPH HUMAN ISOPHANE SUBCUT SCH (08:00)
[2019-12-26] MEDS: LEVOTHYROXINE SODIUM 0.075 MG TABLET PO SCH (08:33)
--- NOTE | 2019-12-26 08:39 | EKG REPORT ---
SEVERITY:- ABNORMAL ECG - ATRIAL FIBRILLATION LOW VOLTAGE IN FRONTAL LEADS BORDERLINE R WAVE PROGRESSION, ANTERIOR LEADS BORDERLINE PROLONGED QT INTERVAL : Confirmed by: Laverne Barrientos MD 26-Dec-2019 08:38:51
[2019-12-26] MEDS: INSULIN LISPRO 100 UNIT/ML 3 ML VIAL SUBCUT SCH ×4 (08:47→21:42)
[2019-12-26] MEDS ORDERED: (PENDING PHARMACY ID) (Multivit With Calcium,Iron,Min [Multiple Vitamins For Women] 1 EACH PO SCH (10:00)
[2019-12-26] MEDS ORDERED: LEVOTHYROXINE SODIUM 0.075 MG TABLET PO SCH (10:00)
[2019-12-26] MEDS ORDERED: BISOPROLOL FUMARATE 10 MG PO SCH (10:00)
[2019-12-26] MEDS ORDERED: AMLODIPINE BESYLATE 5 MG TABLET PO SCH ×2 (10:00)
[2019-12-26] MEDS ORDERED: (PENDING PHARMACY ID) (Lisinopril/Hydrochlorothiazide [Lisinopril-Hctz 20-12.5 Mg Tab] 1 E PO SCH (10:00)
[2019-12-26] MEDS: ASPIRIN 81 MG TABLET, ENT COATED PO SCH (10:15)
[2019-12-26] MEDS: AMLODIPINE BESYLATE 10 MG TABLET PO SCH (10:15)
[2019-12-26] MEDS: LISINOPRIL 10 MG TABLET PO SCH (10:15)
[2019-12-26] MEDS: CHOLECALCIFEROL (D3) 1,000 UNIT (25 MCG) TABLET PO SCH (10:16)
[2019-12-26] MEDS: ZINC SULFATE 220 MG CAPSULE PO SCH (10:16)
[2019-12-26] MEDS: FOLIC ACID 1 MG TABLET PO SCH (10:17)
[2019-12-26] MEDS: HYDRALAZINE HCL 25 MG TABLET PO SCH ×2 (10:17→21:39)
[2019-12-26] MEDS: ASCORBIC ACID 500 MG TABLET PO SCH ×2 (10:17→17:27)
[2019-12-26] MEDS: MULTIVITAMIN TABLET PO SCH (10:17)
[2019-12-26] MEDS: HYDROCHLOROTHIAZIDE 12.5 MG TABLET PO SCH ×2 (10:17→10:33)
[2019-12-26] MEDS: CITALOPRAM HYDROBROMIDE 20 MG TABLET PO SCH (10:18)
[2019-12-26] MEDS: ENOXAPARIN SODIUM INJ 80 MG/0.8 ML DISP.SYRIN SUBCUT SCH ×3 (10:18→21:40)
[2019-12-26] MEDS: CEFTRIAXONE 1 GM/D5W RTU 1 GM/50 ML RTUPB IV SCH (10:19)
[2019-12-26] MEDS: INSULIN NPH (ISOPHANE), HUMAN 100 UNIT/ML 3 ML SUBCUT SCH ×2 (10:20→21:41)
[2019-12-26] MEDS: ATENOLOL 50 MG TABLET PO SCH (10:32)
[2019-12-26] MEDS ORDERED: INSULIN LISPRO 100 UNIT/ML 3 ML VIAL SUBCUT ONE ×2 (13:30→14:00)
[2019-12-26] MEDS ORDERED: ZOLPIDEM TARTRATE 5 MG TABLET PO PRN (16:16)
[2019-12-26] MEDS ORDERED: HYDROXYZINE PAMOATE 25 MG CAPSULE PO PRN (16:16)
--- NOTE | 2019-12-26 16:28 | PDOC PROGRESS REPORT ---
Subjective Progress Note for:: 12/26/19 Subjective:: Patient was seen on afternoon rounds. She is found ambulating in her room, comfortably, on room air. She is speaking full sentences without increased work of breathing. She reports that her dyspnea is resolved. She does continue to have a productive cough and generalized fatigue. Notes that her dyspnea and wheezing is worse at night; frequently wakes her up. Denies a prior diagnosis of reflux. Otherwise, she reports that she is feeling well and has no new questions or concerns. Frustrated by steroids; feels that this caused her to be quite emotional. She is also frustrated that this has caused her glucose to be elevated. Would like to discharge home soon as possible. She denies fever, chills, chest pain, palpitations, Abdominal pain, nausea, vomiting, and diarrhea. No concerns per nursing. Reason For Visit: COPD EXACERBATION,CORONARY ARTERY DISEASE,HYPERTEN Physical Exam Vital Signs: Temp Pulse Resp BP Pulse Ox 97.3 F 77 24 H 119/82 97 12/26/19 12:13 12/26/19 12:13 12/26/19 12:13 12/26/19 12:13 12/26/19 12:13 Intake & Output 12/25/19 12/26/19 12/27/19 06:59 06:59 06:59 Intake Total 1050 530 240 Output Total 200 Balance 1050 330 240 Weight 79.832 kg 91.4 kg General appearance: PRESENT: no acute distress, cooperative, well-developed, well-nourished - Overweight Head exam: PRESENT: atraumatic, normocephalic Eye exam: PRESENT: conjunctiva pink, EOMI, PERRLA. ABSENT: scleral icterus Mouth exam: PRESENT: moist, tongue midline Respiratory exam: PRESENT: clear to auscultation luz maria, symmetrical, unlabored. ABSENT: rales, rhonchi, wheezes Cardiovascular exam: PRESENT: RRR. ABSENT: diastolic murmur, rubs, systolic murmur Vascular exam: PRESENT: normal capillary refill Extremities exam: PRESENT: full ROM. ABSENT: calf tenderness, clubbing, pedal edema Musculoskeletal exam: PRESENT: ambulatory Neurological exam: PRESENT: alert, awake, oriented to person, oriented to place, oriented to time, oriented to situation, CN II-XII grossly intact. ABSENT: motor sensory deficit Psychiatric exam: PRESENT: appropriate affect. ABSENT: homicidal ideation, normal mood - Labile emotions, suicidal ideation Skin exam: PRESENT: dry, intact, warm. ABSENT: cyanosis, rash Results Laboratory Results: 12/26/19 05:14 12/26/19 05:14 12/25/19 12/26/19 12/26/19 20:55 05:14 05:14 WBC 5.7 RBC 3.16 L Hgb 9.2 L Hct 26.0 L MCV 82 MCH 29.0 MCHC 35.3 RDW 14.7 H Plt Count 126 L Sodium 125.1 L Potassium 4.7 Chloride 93 L Carbon Dioxide 23 Anion Gap 9 BUN 29 H Creatinine 1.00 Est GFR ( Amer) > 60 Glucose 325 H Calcium 9.0 Ferritin 581.00 H C-Reactive Protein 132.7 H Urine Color YELLOW Urine Appearance CLEAR Urine pH 6.0 Ur Specific [place] 1.024 Urine Protein 100 H Urine Glucose (UA) >=500 H Urine Ketones NEGATIVE Urine Blood NEGATIVE Urine RBC (Auto) 1 12/24/19 18:25 Blood Blood Culture (PCR) - Final Staphylococcus Species 12/25/19 20:55 Sputum Gram Stain - Final 12/25/19 20:55 Sputum Sputum Culture - Final Impressions: Chest X-Ray 12/24/19 15:20 IMPRESSION: COPD. NO ACUTE RADIOGRAPHIC FINDING IN THE CHEST. Chest/Abdomen CTA 12/24/19 18:00 IMPRESSION: Mild emphysema. Assessment and Plan - Diagnosis (1) Suspected COVID-19 virus infection Is this a current diagnosis for this admission?: Yes Plan: Rapid COVID-19 test yesterday is negative. Continue to have a high suspicion for COVID-19 virus infection due to the patient's fever and symptoms of dyspnea/cough without clear source of COPD exacerbation or pneumonia to attribute the symptoms to. She also has numerous laboratory results supportive of COVID-19; elevated d- dimer, transaminases, CRP, LDH, ferritin. CTA negative for pulmonary embolus and pneumonia. COPD exacerbation is not suspected (no wheezing on exam) and certainly would not be because of the above-mentioned laboratory changes. D-dimer improved (1.47) CRP equivocal (132.7 Ferritin increased (581) LDH increased (289) Patient is admitted to medical floor and continued cardiac telemetry. Due to elevated d-dimer, she is placed on full dose Lovenox. Nursing tells me she has declined multiple doses. She was empirically placed on IV azithromycin and ceftriaxone. Will discontinue ceftriaxone; received 3 doses. Transition to oral azithromycin. Decreased to Decadron 2 mg IV twice daily. Continue vitamin C, vitamin D, zinc, and melatonin supplementation. Provide supplemental oxygen as needed to maintain saturations greater than 89%. Encourage pulmonary toilet. Contact and droplet precautions. Send out testing pending. Discussed this with both nursing dirt supervisor and infectious control today; patient meets clinical criteria for COVID-19 despite her prior negative testing. (2) COPD (chronic obstructive pulmonary disease) with chronic bronchitis Is this a current diagnosis for this admission?: Yes Plan: The patient reports COPD. She states that she has not had an exacerbation in a long time. She does have an albuterol rescue inhaler at home but has been not on any chronic daily inhaler therapy. She does not use oxygen at home. Currently on azithromycin and dexamethasone secondary to suspected COVID. No wheezing noted on exam today. Encourage pulmonary toilet with incentive spirometer, flutter valve. (3) Coronary artery disease Qualifiers: Coronary Disease-Associated Artery/Lesion type: [place] artery [place] vs. transplanted heart: [place] heart Associated angina: without angina Qualified Code(s): I25.10 - Atherosclerotic heart disease of [place] coronary artery without angina pectoris Is this a current diagnosis for this admission?: Yes Plan: The patient states that she had a stent placed approximately 10 years ago or more. She was following with cardiology but then decided to change practitioners. She states she would be seeing Dr. Frazier at [facility] to establish with new cardiology. Resume aspirin and statin therapy. Resume a home antihypertensive regiment of amlodipine, lisinopril/HCTZ, bisprolol, and hydralazine. Cardiac diet. (4) Depression Qualifiers: Depression Type: unspecified Qualified Code(s): F32.9 - Major depressive disorder, single episode, unspecified Is this a current diagnosis for this admission?: Yes Plan: Home dose Celexa. Monitor QTC while given concurrently with azithromycin. Vistaril as needed anxiety (5) Diabetes mellitus Qualifiers: Diabetes mellitus type: type 1 Diabetes mellitus complication status: without complication Qualified Code(s): E10.9 - Type 1 diabetes mellitus without complications Is this a current diagnosis for this admission?: Yes Plan: A1c 6.4%. Resume home dose NPH. Accu-Cheks before meals and at bedtime with Humalog per sliding scale coverage. Hypoglycemia protocol. Cardiac/consistent carb diet. (6) Elevated d-dimer Is this a current diagnosis for this admission?: Yes Plan: CTA chest negative for pulmonary embolus. Improving; d-dimer down to 1.47 Because there is a suspicion of Covid-19 and her d-dimer is greater than 1.0 she will be placed on full anticoagulant therapy with Lovenox 1 mg/kg every 12 hours. (7) Elevated liver function tests Is this a current diagnosis for this admission?: Yes Plan: Resolved. She reports rare to occasional glasses of wine. No other indication for elevated transaminases. Transaminitis is 1 of the abnormalities seen in COVID. Continue to monitor. (8) Fever Qualifiers: Fever type: unspecified Qualified Code(s): R50.9 - Fever, unspecified Is this a current diagnosis for this admission?: Yes Plan: Fever along with some of her symptoms and laboratory studies certainly create a high index of suspicion for Covid-19. T-max 103.1/48 hours. Afebrile x24 hrs. Acetaminophen for elevated temperature and antibiotics as well as other recommended COVID treatments until the serology returns Blood cultures (1/4 bottles) shows coag negative staph; contaminant. Antibiotics as above. (9) Hypertension Qualifiers: Hypertension type: essential hypertension Qualified Code(s): I10 - Essential (primary) hypertension Is this a current diagnosis for this admission?: Yes Plan: Resume a home antihypertensive regiment of lisinopril/HCTZ, bisprolol, and hydralazine. Increased amlodipine to 10 mg daily. Cardiac diet. (10) Hyponatremia Is this a current diagnosis for this admission?: Yes Plan: Chronic per patient, however, labs from May 2019 show sodium 134.8; therefor e, her hyponatremia today is significantly lower than what is presumed to be her baseline. Sodium trending overall stable; 125.3-> 122.5-> 125.1 Liberalize dietary sodium. Fluid restrict 1.2 L/daily Follow up chemistry. (11) Hypothyroidism, postsurgical Is this a current diagnosis for this admission?: Yes Plan: Continue home dose levothyroxine. - Time Time Spent with patient: 35 or more minutes Medications reviewed and adjusted accordingly: Yes Anticipated Discharge Disposition: Home, Self Care Anticipated Discharge Timeframe: within 48 hours
[2019-12-26] MEDS: PANTOPRAZOLE SODIUM 40 MG TABLET.DR PO SCH (17:26)
[2019-12-26] MEDS: AZITHROMYCIN 250 MG TABLET PO SCH (17:27)
[2019-12-26] MEDS ORDERED: INSULIN NPH (ISOPHANE), HUMAN 100 UNIT/ML 3 ML SUBCUT SCH (18:00)
[2019-12-26] MEDS: ATORVASTATIN CALCIUM 20 MG TABLET PO SCH (21:39)
[2019-12-26] MEDS: CALCIUM CARBONATE 600 MG/VITAMIN D3 400 UNIT TABLET PO SCH (21:39)
[2019-12-26] MEDS: MELATONIN 3 MG TABLET PO SCH (21:39)
[2019-12-27 04:43] LABS: HEMATOCRIT 27.2 % (36.0-47.0); HEMOGLOBIN 9.5 g/dL (12.0-15.5); MEAN CORPUSCULAR HEMOGLOBIN 28.7 pg (27.0-33.4); MEAN CORPUSCULAR HGB CONC 35.1 g/dL (32.0-36.0); MEAN CORPUSCULAR VOLUME 82 fl (80-97); PLATELET COUNT 152 10^3/uL (150-450); RED BLOOD COUNT 3.32 10^6/uL (3.72-5.28); RED CELL DISTRIBUTION WIDTH 14.6 % (11.5-14.0); WHITE BLOOD COUNT 7.1 10^3/uL (4.0-10.5)
[2019-12-27 05:12] LABS: ANION GAP 6 (5-19); BLOOD UREA NITROGEN 26 mg/dL (7-20); CALCIUM 9.3 mg/dL (8.4-10.2); CARBON DIOXIDE 25 mmol/L (22-30); CHLORIDE 96 mmol/L (98-107); GLUCOSE 245 mg/dL (75-110); POTASSIUM 4.5 mmol/L (3.6-5.0)
[2019-12-27] MEDS: PANTOPRAZOLE SODIUM 40 MG TABLET.DR PO SCH ×2 (06:16→17:33)
[2019-12-27] MEDS: LEVOTHYROXINE SODIUM 0.075 MG TABLET PO SCH (06:16)
[2019-12-27] MEDS: INSULIN LISPRO 100 UNIT/ML 3 ML VIAL SUBCUT SCH ×4 (08:43→22:12)
[2019-12-27] MEDS: INSULIN NPH (ISOPHANE), HUMAN 100 UNIT/ML 3 ML SUBCUT SCH ×2 (08:44→22:13)
[2019-12-27] MEDS: CHOLECALCIFEROL (D3) 1,000 UNIT (25 MCG) TABLET PO SCH (09:40)
[2019-12-27] MEDS: ZINC SULFATE 220 MG CAPSULE PO SCH (09:41)
[2019-12-27] MEDS: ASPIRIN 81 MG TABLET, ENT COATED PO SCH (09:41)
[2019-12-27] MEDS: ASCORBIC ACID 500 MG TABLET PO SCH ×2 (09:41→17:33)
[2019-12-27] MEDS: FOLIC ACID 1 MG TABLET PO SCH (09:41)
[2019-12-27] MEDS: CITALOPRAM HYDROBROMIDE 20 MG TABLET PO SCH (09:41)
[2019-12-27] MEDS: MULTIVITAMIN TABLET PO SCH (09:41)
[2019-12-27] MEDS: ATENOLOL 50 MG TABLET PO SCH (09:42)
[2019-12-27] MEDS: HYDROCHLOROTHIAZIDE 12.5 MG TABLET PO SCH (09:42)
[2019-12-27] MEDS: LISINOPRIL 10 MG TABLET PO SCH (09:43)
[2019-12-27] MEDS: AMLODIPINE BESYLATE 10 MG TABLET PO SCH (09:43)
[2019-12-27] MEDS: HYDRALAZINE HCL 25 MG TABLET PO SCH ×2 (09:43→22:11)
[2019-12-27] MEDS: DEXAMETHASONE SOD PHOSPHATE INJ 4 MG/1 ML VIAL IV SCH (09:44)
[2019-12-27] MEDS: ENOXAPARIN SODIUM INJ 80 MG/0.8 ML DISP.SYRIN SUBCUT SCH ×2 (09:44→22:12)
[2019-12-27] MEDS ORDERED: DILTIAZEM HCL INJ 25 MG/5 ML VIAL IV ONE (11:30)
[2019-12-27] MEDS: METOPROLOL TARTRATE 25 MG TABLET PO SCH ×2 (12:27→17:33)
[2019-12-27] MEDS: AZITHROMYCIN 250 MG TABLET PO SCH (17:33)
--- NOTE | 2019-12-27 19:09 | PDOC PROGRESS REPORT ---
Subjective Progress Note for:: 12/27/19 Subjective:: Patient was seen on afternoon rounds. She is found ambulating in her room, comfortably, on room air. More calm; less anxious today. She reports that her dyspnea is resolved. Cough is much improved. Slept well last night; feels that the IS and Flutter valve are helping greatly. She denies fever, chills, chest pain, palpitations, abdominal pain, nausea, vomiting, and diarrhea. Nursing reports recurrent a. fib with RVR today. Reason For Visit: COPD EXACERBATION,CORONARY ARTERY DISEASE,HYPERTEN Physical Exam Vital Signs: Temp Pulse Resp BP Pulse Ox 97.9 F 128 H 22 H 122/78 99 12/27/19 07:37 12/27/19 14:00 12/27/19 07:37 12/27/19 09:39 12/27/19 08:46 Intake & Output 12/26/19 12/27/19 12/28/19 06:59 06:59 06:59 Intake Total 530 1470 240 Output Total 200 Balance 330 1470 240 Weight 91.4 kg General appearance: PRESENT: no acute distress, cooperative, well-developed, well-nourished, other - overweight Head exam: PRESENT: atraumatic, normocephalic Eye exam: PRESENT: conjunctiva pink, EOMI, PERRLA. ABSENT: scleral icterus Mouth exam: PRESENT: moist, tongue midline Respiratory exam: PRESENT: clear to auscultation luz maria, symmetrical, unlabored. ABSENT: rales, rhonchi, wheezes Cardiovascular exam: PRESENT: irregular rhythm, tachycardia. ABSENT: diastolic murmur, rubs, systolic murmur Vascular exam: PRESENT: normal capillary refill Extremities exam: PRESENT: full ROM. ABSENT: calf tenderness, clubbing, pedal edema Musculoskeletal exam: PRESENT: ambulatory Neurological exam: PRESENT: alert, awake, oriented to person, oriented to place, oriented to time, oriented to situation, CN II-XII grossly intact. ABSENT: motor sensory deficit Psychiatric exam: PRESENT: appropriate affect, normal mood. ABSENT: homicidal ideation, suicidal ideation Skin exam: PRESENT: dry, intact, warm. ABSENT: cyanosis, rash Results Laboratory Results: 12/27/19 04:25 12/27/19 04:25 12/27/19 12/27/19 04:25 04:25 WBC 7.1 RBC 3.32 L Hgb 9.5 L Hct 27.2 L MCV 82 MCH 28.7 MCHC 35.1 RDW 14.6 H Plt Count 152 Sodium 127.3 L Potassium 4.5 Chloride 96 L Carbon Dioxide 25 Anion Gap 6 BUN 26 H Creatinine 0.91 Est GFR ( Amer) > 60 Glucose 245 H Calcium 9.3 12/24/19 18:25 Blood Blood Culture (PCR) - Final Staphylococcus Species 12/24/19 18:25 Blood Blood Culture - Final Staphylococcus Hominis Impressions: Chest X-Ray 12/24/19 15:20 IMPRESSION: COPD. NO ACUTE RADIOGRAPHIC FINDING IN THE CHEST. Chest/Abdomen CTA 12/24/19 18:00 IMPRESSION: Mild emphysema. Assessment and Plan - Diagnosis (1) Atrial fibrillation with RVR Is this a current diagnosis for this admission?: Yes Plan: Atrial fibrillation with RVR. Occurred earlier this admission; resolved following diltiazem 20 mg IV push. Reoccurred today. Cardiology was consulted; discussed with Dr. De Anda. He advises to discontinue atenolol. Start Toprol 25 mg every 6 hours. Obtain stat echocardiogram. Continue anticoagulation; plan for discharge on Eliquis. (2) COVID-19 determined by clinical diagnostic criteria Is this a current diagnosis for this admission?: Yes Plan: Continue to have a high suspicion for COVID-19 virus infection Rapid and send out COVID-19 tests are negative. However, she has numerous laboratory results supportive of COVID-19 (elevated d- dimer, transaminases, CRP, LDH, ferritin) that can not be explained otherwise. CTA negative for pulmonary embolus and pneumonia. COPD exacerbation is not suspected (no wheezing on exam) and certainly would not be the cause of the above-mentioned laboratory changes. D-dimer improved (1.47) CRP equivocal (132.7 Ferritin increased (581) LDH increased (289) Patient is admitted to medical floor and continued cardiac telemetry. Due to elevated d-dimer, she is placed on full dose Lovenox. Received 3 days of Rocephin Transition to oral azithromycin; last dose tomorrow. Initially placed on Decadron; will transition to p.o. prednisone. Continue vitamin C, vitamin D, zinc, and melatonin supplementation. Encourage pulmonary toilet. Contact and droplet precautions. (3) COPD (chronic obstructive pulmonary disease) with chronic bronchitis Is this a current diagnosis for this admission?: Yes Plan: Stable and without exacerbation at this time. The patient reports COPD. She states that she has not had an exacerbation in a long time. She does have an albuterol rescue inhaler at home but has been not on any chronic daily inhaler therapy. She does not use oxygen at home. (4) Coronary artery disease Qualifiers: Coronary Disease-Associated Artery/Lesion type: [place] artery [place] vs. transplanted heart: [place] heart Associated angina: without angina Qualified Code(s): I25.10 - Atherosclerotic heart disease of [place] coronary artery without angina pectoris Is this a current diagnosis for this admission?: Yes Plan: The patient states that she had a stent placed approximately 10 years ago or more. She was following with cardiology but then decided to change practitioners. She states she would be seeing Dr. Frazier at [facility] to establish with new cardiology. Resume aspirin and statin therapy. Resume a home antihypertensive regiment of amlodipine, lisinopril/HCTZ, bisprolol, and hydralazine. Cardiac diet. (5) Depression Qualifiers: Depression Type: unspecified Qualified Code(s): F32.9 - Major depressive disorder, single episode, unspecified Is this a current diagnosis for this admission?: Yes Plan: Home dose Celexa. Monitor QTC while given concurrently with azithromycin. Vistaril as needed anxiety (6) Diabetes mellitus Qualifiers: Diabetes mellitus type: type 1 Diabetes mellitus complication status: without complication Qualified Code(s): E10.9 - Type 1 diabetes mellitus without complications Is this a current diagnosis for this admission?: Yes Plan: A1c 6.4%. Resume home dose NPH. Accu-Cheks before meals and at bedtime with Humalog per sliding scale coverage. Hypoglycemia protocol. Cardiac/consistent carb diet. (7) Elevated d-dimer Is this a current diagnosis for this admission?: Yes Plan: CTA chest negative for pulmonary embolus. Improving; d-dimer down to 1.47 Because there is a suspicion of Covid-19 and her d-dimer is greater than 1.0 she will be placed on full anticoagulant therapy with Lovenox 1 mg/kg every 12 hours. (8) Elevated liver function tests Is this a current diagnosis for this admission?: Yes Plan: Resolved. She reports rare to occasional glasses of wine. No other indication for elevated transaminases. Transaminitis is 1 of the abnormalities seen in COVID. Continue to monitor. (9) Fever Qualifiers: Fever type: unspecified Qualified Code(s): R50.9 - Fever, unspecified Is this a current diagnosis for this admission?: Yes Plan: Fever along with some of her symptoms and laboratory studies certainly create a high index of suspicion for Covid-19. Afebrile x48 hrs. Acetaminophen for elevated temperature and antibiotics as well as other recommended COVID treatments until the serology returns Blood cultures (1/4 bottles) shows coag negative staph; contaminant. Antibiotics as above. (10) Hypertension Qualifiers: Hypertension type: essential hypertension Qualified Code(s): I10 - [place] t[place] (primary) hypertension Is this a current diagnosis for this admission?: Yes Plan: Resume a home antihypertensive regiment of lisinopril/HCTZ, bisprolol, and hydralazine. Increased amlodipine to 10 mg daily. Cardiac diet. (11) Hyponatremia Is this a current diagnosis for this admission?: Yes Plan: Chronic per patient, however, labs from May 2019 show sodium 134.8; therefore, her hyponatremia today is significantly lower than what is presumed to be her baseline. Sodium trending overall stable; 125.3-> 122.5-> 125.1 Liberalize dietary sodium. Fluid restrict 1.2 L/daily Follow up chemistry. (12) Hypothyroidism, postsurgical Is this a current diagnosis for this admission?: Yes Plan: Continue home dose levothyroxine. (13) Suspected COVID-19 virus infection Is this a current diagnosis for this admission?: Yes Plan: As above. - Time Time Spent with patient: 25-34 minutes Medications reviewed and adjusted accordingly: Yes Anticipated Discharge Disposition: Home, Self Care Anticipated Discharge Timeframe: pending cardiology evaluation/recommendations
[2019-12-27] MEDS: MELATONIN 3 MG TABLET PO SCH (22:11)
[2019-12-27] MEDS: CALCIUM CARBONATE 600 MG/VITAMIN D3 400 UNIT TABLET PO SCH (22:11)
[2019-12-27] MEDS: ATORVASTATIN CALCIUM 20 MG TABLET PO SCH (22:12)
[2019-12-28] MEDS: METOPROLOL TARTRATE 25 MG TABLET PO SCH ×4 (00:48→17:03)
[2019-12-28] MEDS: LEVOTHYROXINE SODIUM 0.075 MG TABLET PO SCH (05:45)
[2019-12-28] MEDS: PANTOPRAZOLE SODIUM 40 MG TABLET.DR PO SCH ×2 (05:45→16:54)
[2019-12-28 06:09] LABS: HEMATOCRIT 32.6 % (36.0-47.0); HEMOGLOBIN 11.2 g/dL (12.0-15.5); MEAN CORPUSCULAR HEMOGLOBIN 28.5 pg (27.0-33.4); MEAN CORPUSCULAR HGB CONC 34.5 g/dL (32.0-36.0); MEAN CORPUSCULAR VOLUME 83 fl (80-97); PLATELET COUNT 202 10^3/uL (150-450); RED BLOOD COUNT 3.94 10^6/uL (3.72-5.28); WHITE BLOOD COUNT 8.2 10^3/uL (4.0-10.5)
[2019-12-28] MEDS ORDERED: METOPROLOL TARTRATE PF/INJ 5 MG/5 ML SDV IV ONE ×2 (06:13→06:45)
[2019-12-28 06:25] LABS: ANION GAP 10 (5-19); BLOOD UREA NITROGEN 23 mg/dL (7-20); CALCIUM 9.1 mg/dL (8.4-10.2); CARBON DIOXIDE 25 mmol/L (22-30); CHLORIDE 96 mmol/L (98-107); GLUCOSE 110 mg/dL (75-110); POTASSIUM 4.3 mmol/L (3.6-5.0)
[2019-12-28] MEDS ORDERED: DILTIAZEM HCL INJ 25 MG/5 ML VIAL ONE (06:53)
[2019-12-28] MEDS ORDERED: DILTIAZEM HCL INJ 25 MG/5 ML VIAL IV ONE (07:00)
--- NOTE | 2019-12-28 08:43 | RADIOLOGY REPORT (SQ) ---
EXAM DESCRIPTION: CHEST SINGLE VIEW IMAGES COMPLETED DATE/TIME: 12/28/2019 7:50 am REASON FOR STUDY: SOB COMPARISON: 12/24/2019 EXAM PARAMETERS: NUMBER OF VIEWS: One view. TECHNIQUE: Single frontal radiographic view of the chest acquired. RADIATION DOSE: NA LIMITATIONS: None. FINDINGS: LUNGS AND PLEURA: No opacities, masses or pneumothorax. No pleural effusion. Mild hyperex pansion. Recent CT demonstrated mild emphysematous change. MEDIASTINUM AND HILAR STRUCTURES: No masses. Contour normal. HEART AND VASCULAR STRUCTURES: Stable in appearance. No failure. BONES: Degenerative changes in the 1st anterior rib. HARDWARE: None in the chest. OTHER: No other significant finding. IMPRESSION: No interval change in the chest. TECHNICAL DOCUMENTATION: JOB ID: [id number] [employer]- All Rights Reserved Reading location - IP/workstation name: [email or web address]
--- NOTE | 2019-12-28 08:55 | PDOC CONSULTATION ---
Consultation Consult Date: 12/28/19 Attending physician:: LEWIS DOOLEY Provider Consulted: SHAYNE ESCOBEDO Consult reason:: PAF History of Present Illness Admission Date/PCP: 12/24/19 19:30 PRINCE GTZ MD History of Present Illness: ALONZO DAWKINS is a 64 year old female with a history of coronary artery disease status post PCI to the proximal RCA with a 4.0 mm x 18 mm Elite stent in September 2001, palpitations, PACs in the past, COPD, hyperlipidemia, hypertension, depression, diabetes mellitus and hyponatremia who was admitted to [facility] on 12/24/2019 with several weeks of increasing shortness of breath and cough as well as fevers and who is consulted to our service for rapid atrial fibrillation. The hospitalist service has been treating her for COVID-19 as she clinically is having all symptoms and signs of COVID infection despite negative testing. The patient had been responding appropriately to treatment for her pulmonary condition however began to have episodes of paroxysmal atrial fibrillation recently and, as of yesterday, had remained in rapid atrial fibrillation. She was begun on Lopressor 25 p.o. every 6 with some improvement in her pulse. This morning she is found in bed, resting comfortably although she complains of shortness of breath and racing heart. She feels hot to the touch. Physical exam on 12/28/2019: GENERAL: Pleasant and conversational. Oriented x3 with normal mood. Not in acute distress however she is speaking in short sentences and appears to be short of breath. HEENT: Normocephalic, atraumatic. Pupils equal. Sclerae anicteric. Oropharynx moist. NECK: No JVD. No carotid bruits. LUNGS: Clear to auscultation bilaterally, decreased breath sounds bilaterally. Normal respiratory effort without the use of accessory muscles or intercostal retractions. CARDIOVASCULAR: Regular rate and rhythm, normal S1 and S2 without murmurs, rubs, or gallops. PMI not displaced. ABDOMEN: No masses or tenderness to palpation. No bruit. No splenomegaly or hepatomegaly. No abdominal aorta bruit noted. EXTREMITIES: 1-2+ pitting edema bilaterally, no cyanosis, no clubbing. +2 pulses femoral and pedal pulses bilaterally. SKIN: No lesions or rashes. MUSCULOSKELETAL: No chest tenderness to palpation. NEUROLOGIC: Nonfocal. No gross sensory or motor deficits bilateral upper or lower extremities. Past Medical History Cardiac Medical History: Reports: Coronary Artery Disease - 1 stent, Hyperlipidema, Hypertension Pulmonary Medical History: Reports: Chronic Obstructive Pulmonary Disease (COPD) EENT Medical History: Reports: Cataracts Neurological Medical History: Denies: Ischemic CVA, Multiple Sclerosis Endocrine Medical History: Reports: Diabetes Mellitus Type 1 - Per the patient., Hypothyroidism Renal/ Medical History: Reports: Chronic Kidney Disease, Other - Patient reports chronic kidney disease despite normal renal function Malignancy Medical History: Denies: Breast Cancer, Colorectal Cancer, Liver Cancer, Lung Cancer GI Medical History: Denies: Cirrhosis, Gastroesophageal Reflux Disease, Hiatal Hernia Musculoskeltal Medical History: Denies: Fibromyalgia Skin Medical History: Denies: Eczema, Psoriasis Psychiatric Medical History: Reports: Depression Traumatic Medical History: Reports: None Hematology: Reports: Anemia - Possible myelodysplasia Past Surgical History Past Surgical History: Reports: Appendectomy, Cardiac Catheterization, Coronary Stent, Thyroidectomy, Tubal Ligation Social History Lives with: Spouse/Significant other Smoking Status: Former Smoker Electronic Cigarette use?: No Frequency of Alcohol Use: Rare Hx Recreational Drug Use: No Hx Prescription Drug Abuse: No - Advance Directive Resuscitation Status: Full Code Family History Family History: CAD, DM, Hypertension Parental Family History Reviewed: Yes Children Family History Reviewed: Yes Sibling(s) Family History Reviewed.: Yes Medication/Allergy Home Medications: Amlodipine Besylate [Norvasc 5 mg Tablet] 5 mg PO DAILY 12/24/19 Atorvastatin Calcium [Lipitor 20 mg Tablet] 20 mg PO QHS 12/24/19 Citalopram Hydrobromide [Celexa] 10 mg PO DAILY 12/24/19 Folic Acid [Folvite 1 mg Tablet] 1 mg PO DAILY 12/24/19 Hydralazine HCl [Apresoline 25 mg Tablet] 25 mg PO BID 12/24/19 Insulin Lispro [Humalog Kwikpen U-100] 15 unit SQ TID 12/24/19 Insulin NPH Human Isophane [Novolin N Flexpen] 20 unit SQ QPM 12/24/19 Insulin NPH Human Isophane [Novolin N Flexpen] 25 unit SQ QAM 12/24/19 Levothyroxine Sodium 88 mcg PO SUSA@1000 12/24/19 Albuterol Sulfate [Proair HFA Inhalation Aerosol 8.5 gm MDI] 2 puff IH Q6HP PRN 12/25/19 Aspirin [Aspir-Low] 81 mg PO DAILY 12/25/19 Bisoprolol Fumarate 10 mg PO DAILY 12/25/19 Calcium Carbonate/Vitamin D3 [Calcium 600-D3 20Mcg(800 Unit)] 1 tab PO QHS 12/25/19 Cetirizine HCl [Zyrtec] 10 mg PO HSP PRN 12/25/19 Levothyroxine Sodium [Levo-T] 75 mcg PO MOTUWETHFR@1000 12/25/19 Lisinopril/Hydrochlorothiazide [Lisinopril-Hctz 20-12.5 mg Tab] 1 each PO DAILY 12/25/19 Multivit with Calcium,Iron,Min [Multiple Vitamins For Women] 1 each PO DAILY 12/25/19 Acetaminophen [Tylenol 325 mg Tablet] 650 mg PO Q4HP PRN tablet 12/27/19 Albuterol Sulfate [Proair HFA Inhalation Aerosol 8.5 gm MDI] 2 puff IH Q4HP PRN #1 hfa.aer.ad 12/27/19 Azithromycin [Zithromax 250 mg Tablet] 250 mg PO QPM #2 tablet 12/27/19 Pantoprazole Sodium [Protonix [address] Tablet] 40 mg PO QAM #30 tablet.dr 12/27/19 Prednisone [Deltasone 20 mg Tablet] 60 mg PO DAILY #9 tablet 12/27/19 Allergies/Adverse Reactions: Sulfa (Sulfonamide Antibiotics) Allergy (Verified 12/24/19 15:22) Physical Exam Vital Signs: Temp Pulse Resp BP Pulse Ox 98.1 F 89 22 H 121/45 L 96 12/28/19 04:06 12/28/19 04:06 12/28/19 04:06 12/28/19 04:06 12/28/19 04:06 Intake & Output 12/27/19 12/28/19 12/29/19 06:59 06:59 06:59 Intake Total 1470 2000 Balance 1470 2000 Weight 74.2 kg Results Laboratory Results: 12/28/19 05:47 12/28/19 05:47 12/28/19 12/28/19 05:47 05:47 WBC 8.2 RBC 3.94 Hgb 11.2 L Hct 32.6 L MCV 83 MCH 28.5 MCHC 34.5 RDW 15.0 H Plt Count 202 Sodium 130.8 L Potassium 4.3 Chloride 96 L Carbon Dioxide 25 Anion Gap 10 BUN 23 H Creatinine 0.90 Est GFR ( Amer) > 60 Glucose 110 Calcium 9.1 12/24/19 18:25 Blood Blood Culture (PCR) - Final Staphylococcus Species 12/24/19 18:25 Blood Blood Culture - Final Staphylococcus Hominis Impressions: Chest/Abdomen CTA 12/24/19 18:00 IMPRESSION: Mild emphysema. 12/28/19 05:47 12/28/19 05:47 MCV 83 fl (80-97) 12/28/19 05:47 MCH 28.5 pg (27.0-33.4) 12/28/19 05:47 MCHC 34.5 g/dL (32.0-36.0) 12/28/19 05:47 RDW 15.0 % (11.5-14.0) H 12/28/19 05:47 Seg Neutrophils % 86.0 % (42-78) H 12/25/19 05:06 Chloride 96 mmol/L (98-107) L 12/28/19 05:47 Carbon Dioxide 25 mmol/L (22-30) 12/28/19 05:47 Anion Gap 10 (5-19) 12/28/19 05:47 Est GFR ( Amer) > 60 (>60) 12/28/19 05:47 Est GFR (Non-Af Amer) Cancelled 12/24/19 15:01 Glucose 110 mg/dL (75-110) 12/28/19 05:47 Calcium 9.1 mg/dL (8.4-10.2) 12/28/19 05:47 Phosphorus 3.2 mg/dL (2.5-4.5) 12/25/19 05:06 Magnesium 1.5 mg/dL (1.6-2.3) L 12/25/19 05:06 Ferritin 581.00 ng/mL (11.1-264.0) H 12/26/19 05:14 Total Bilirubin 0.6 mg/dL (0.2-1.3) 12/24/19 16:25 AST 84 U/L (14-36) H 12/24/19 16:25 Alkaline Phosphatase 69 U/L (38-126) 12/24/19 16:25 C-Reactive Protein 132.7 mg/L (<10.0) H 12/26/19 05:14 Total Protein 7.9 g/dL (6.3-8.2) 12/24/19 16:25 Albumin 4.4 g/dL (3.5-5.0) 12/24/19 16:25 Triglycerides 105 mg/dL (<150) 12/25/19 05:06 Cholesterol 122.99 mg/dL (0-200) 12/25/19 05:06 LDL Cholesterol Direct 46 mg/dL (<100) 12/25/19 05:06 VLDL Cholesterol 21.0 mg/dL (10-31) 12/25/19 05:06 HDL Cholesterol 52 mg/dL (>40) 12/25/19 05:06 TSH 0.13 uIU/mL (0.47-4.68) L 12/25/19 05:06 Free T4 1.45 ng/dL (0.78-2.19) 12/25/19 05:06 Free T3 pg/mL 1.81 pg/mL (2.77-5.27) L 12/25/19 05:06 Urine Color YELLOW 12/25/19 20:55 Urine Appearance CLEAR 12/25/19 20:55 Urine pH 6.0 (5.0-9.0) 12/25/19 20:55 Ur Specific [place] 1.024 12/25/19 20:55 Urine Protein 100 mg/dL (NEGATIVE) H 12/25/19 20:55 Urine Glucose (UA) >=500 mg/dL (NEGATIVE) H 12/25/19 20:55 Urine Ketones NEGATIVE mg/dL (NEGATIVE) 12/25/19 20:55 Urine Blood NEGATIVE (NEGATIVE) 12/25/19 20:55 Urine RBC (Auto) 1 /HPF 12/25/19 20:55 12/24/19 18:25 Blood Blood Culture (PCR) - Final Staphylococcus Species 12/24/19 18:25 Blood Blood Culture - Final Staphylococcus Hominis Current Medication List Generic Name Dose Route Start Last Admin Trade Name Freq PRN Reason Stop Dose Admin Acetaminophen 650 mg 12/24/19 19:19 Tylenol 325 Mg Tablet PO 01/23/20 19:18 Q4HP PRN FOR PAIN OR TEMP Al Hydrox/Mg Hydrox/Simethicone 15 ml 12/24/19 19:19 Maalox Plus Susp 30 Udcup PO 01/23/20 19:18 Q6HP PRN HEARTBURN Albuterol 2 puff 12/24/19 19:48 Proair Hfa Inhalation Aerosol 8.5 Gm Mdi IH 01/23/20 19:47 Q4HP PRN WHEEZING Amlodipine Besylate 10 mg 12/26/19 10:00 12/27/19 09:43 Norvasc 10 Mg Tablet PO 01/25/20 09:59 10 mg DAILY FERNY Administration Ascorbic Acid 500 mg 12/25/19 10:00 12/27/19 17:33 Vitamin C 500 Mg Tablet PO 01/24/20 09:59 500 mg BID FERNY Administration Aspirin 81 mg 12/26/19 10:00 12/27/19 09:41 Ecotrin 81 Mg Ec Tablet PO 01/25/20 09:59 81 mg DAILY FERNY Administration Atorvastatin Calcium 20 mg 12/25/19 22:00 12/27/19 22:12 Lipitor 20 Mg Tablet PO 01/24/20 21:59 20 mg QHS FERNY Administration Azithromycin 250 mg 12/25/19 18:00 12/27/19 17:33 Zithromax 250 Mg Tablet PO 01/01/20 17:59 250 mg QPM FERNY Administration Calcium Carbonate 1 tab 12/25/19 22:00 12/27/19 22:11 Caltrate 600-Vit D3 400 Tablet PO 01/24/20 21:59 1 tab QHS FERNY Administration Cetirizine HCl 10 mg 12/25/19 20:25 Zyrtec 10 Mg Tablet PO 01/24/20 20:24 HSP PRN FOR ALLERGIES Cholecalciferol 2,000 unit 12/25/19 10:00 12/27/19 09:40 Vitamin D3 1000 Unit Tablet PO 01/24/20 09:59 2,000 unit DAILY FERNY Administration Citalopram Hydrobromide 10 mg 12/26/19 10:00 12/27/19 09:41 Celexa 20 Mg Tablet PO 01/25/20 09:59 10 mg DAILY FERNY Administration Dextrose 12.5 gm 12/24/19 19:39 Dextrose Inj 50% Syringe (25 Gm/50 Ml) IV 01/23/20 19:38 PRN PRN FOR BG 50-69 IN ALERT PATIENT Protocol Dextrose 25 gm 12/24/19 19:39 Dextrose Inj 50% Syringe (25 Gm/50 Ml) IV 01/23/20 19:38 PRN PRN PER PROTOCOL Protocol Enoxaparin Sodium 80 mg 12/24/19 22:00 12/27/19 22:12 Lovenox Inj 80 Mg/0.8 Ml Disp.Syrin SUBCUT 01/23/20 21:59 80 mg Q12 FERNY Administration Folic Acid 1 mg 12/26/19 10:00 12/27/19 09:41 Folvite 1 Mg Tablet PO 01/25/20 09:59 1 mg DAILY FERNY Administration Glucagon 1 mg 12/24/19 19:39 Glucagen Inj 1 Mg Vial IM 01/23/20 19:38 PRN PRN Evaluate for BG < 70 Protocol Glucose 15 gm 12/24/19 19:39 Glutose 40% Gel 15 Gm Tube PO 01/23/20 19:38 PRN PRN FOR BG 50-69 IN ALERT PATIENT Protocol Glucose 30 gm 12/24/19 19:39 Glutose 40% Gel 15 Gm Tube PO 01/23/20 19:38 PRN PRN FOR BG < 50 IN ALERT PATIENT Protocol Hydralazine HCl 25 mg 12/26/19 10:00 12/27/19 22:11 Apresoline 25 Mg Tablet PO 01/25/20 09:59 25 mg Q12 FERNY Administration Hydrochlorothiazide 12.5 mg 12/26/19 10:00 12/27/19 09:42 Hydrodiuril 12.5 Mg Tablet PO 01/25/20 09:59 Not Given DAILY FERNY Hydroxyzine Pamoate 25 mg 12/26/19 16:16 Vistaril 25 Mg Capsule PO 01/25/20 16:15 Q8HP PRN ANXIETY Insulin Human Lispro 0 - 12 unit 12/25/19 16:00 12/27/19 22:12 Humalog Insulin 100 Unit/1 Ml 3 Ml Vial SUBCUT 01/24/20 15:59 6 unit ACHS FERNY Administration Protocol Insulin Human NPH 25 unit 12/26/19 09:00 12/27/19 08:44 Humulin N (Nph) Insulin 100 Unit/1 Ml 3 Ml SUBCUT 01/25/20 08:59 25 unit QAM FERNY Administration Insulin Human NPH 20 unit 12/26/19 22:00 12/27/19 22:13 Humulin N (Nph) Insulin 100 Unit/1 Ml 3 Ml SUBCUT 01/25/20 21:59 20 unit QHS FERNY Administration Levothyroxine Sodium 0.075 mg 12/26/19 08:30 12/28/19 05:45 Synthroid 0.075 Mg Tablet PO 01/25/20 08:29 0.075 mg MoTuWeThFr@0600 FERNY Administration Levothyroxine Sodium 0.088 mg 12/29/19 06:00 Synthroid 0.088 Mg Tablet PO 01/28/20 05:59 SuSa@0600 [facility] Lisinopril 20 mg 12/26/19 10:00 12/27/19 09:43 Prinivil 10 Mg Tablet PO 01/25/20 09:59 20 mg DAILY FERNY Administration Melatonin 6 mg 12/24/19 22:00 12/27/19 22:11 Melatonin 3 Mg Tablet PO 01/23/20 21:59 6 mg QHS [facility] Administration Metoprolol Tartrate 25 mg 12/27/19 12:00 12/28/19 05:45 Lopressor 25 Mg Tablet PO 01/26/20 11:59 25 mg Q6 FERNY Administration Multivitamins 1 tab 12/26/19 10:00 12/27/19 09:41 Tab-A-Mirella (Multiple Vitamin) Tablet PO 01/25/20 09:59 1 tab DAILY [facility] Administration Pantoprazole Sodium 40 mg 12/26/19 17:00 12/28/19 05:[address] Tablet PO 01/25/20 16:59 40 mg BID@0600,1700 [facility] Administration Prednisone 60 mg 12/28/19 10:00 Deltasone 20 Mg Tablet PO 01/27/20 09:59 DAILY [facility] Promethazine HCl 12.5 mg 12/24/19 19:19 12/28/19 05:55 Phenergan Inj 25 Mg/1 Ml Vial IV 01/23/20 19:18 12.5 mg Q4HP PRN Administration FOR NAUSEA/VOMITING Sodium Chloride 2.5 ml 12/24/19 22:00 12/28/19 05:58 Saline Flush 2.5 Ml Monoject Prefil Syrin IV 01/23/20 21:59 Not Given Q8 FERNY Zinc Sulfate 220 mg 12/25/19 10:00 12/27/19 09:41 Zinc-220 Capsule PO 01/24/20 09:59 220 mg DAILY FERNY Administration Zolpidem Tartrate 5 mg 12/26/19 16:16 Ambien 5 Mg Tablet PO 01/02/20 16:15 HSP PRN SLEEP OR INSOMNIA Discontinued Medications Generic Name Dose Route Start Last Admin Trade Name Maryjane PRN Reason Stop Dose Admin Albuterol 2.5 mg 12/24/19 19:19 Ventolin 0.083% Neb 2.5 Mg/3 Ml Ampul NEB 01/23/20 19:18 RTQ4HP PRN SHORTNESS OF BREATH Amlodipine Besylate 5 mg 12/26/19 10:00 Norvasc 5 Mg Tablet PO 01/25/20 09:59 DAILY FERNY Aspirin 81 mg 12/24/19 22:00 12/24/19 22:16 Ecotrin 81 Mg Ec Tablet PO 12/24/19 23:00 81 mg QHS FERNY Administration Atenolol 100 mg 12/26/19 10:00 12/27/19 09:42 Tenormin 50 Mg Tablet PO 01/25/20 09:59 100 mg DAILY FERNY Administration Atorvastatin Calcium 40 mg 12/24/19 22:00 12/24/19 22:28 Lipitor 40 Mg Tablet PO 12/24/19 23:00 40 mg QHS FERNY Administration Azithromycin 500 mg 12/24/19 18:01 12/24/19 18:35 Zithromax 250 Mg Tablet PO 12/24/19 18:02 500 mg NOW ONE Administration Dexamethasone Sodium Phosphate 2 mg 12/24/19 22:00 12/26/19 13:35 Decadron Inj 4 Mg/Ml Vial IV 01/23/20 21:59 2 mg Q8 FERNY Administration Dexamethasone Sodium Phosphate 2 mg 12/26/19 22:00 12/27/19 09:44 Decadron Inj 4 Mg/Ml Vial IV 01/25/20 21:59 2 mg Q12 FERNY Administration Diltiazem HCl 20 mg 12/25/19 11:21 12/25/19 11:44 Cardizem Inj 25 Mg/5 Ml Vial IV 12/25/19 11:22 20 mg NOW ONE Administration Diltiazem HCl 20 mg 12/27/19 11:30 12/27/19 12:08 Cardizem Inj 25 Mg/5 Ml Vial IV 12/27/19 11:31 Not Given NOW ONE Diltiazem HCl 25 mg 12/28/19 07:00 12/28/19 06:59 Cardizem Inj 25 Mg/5 Ml Vial IV 12/28/19 07:01 25 mg NOW ONE Administration Diltiazem HCl Confirm 12/28/19 06:53 Cardizem Inj 25 Mg/5 Ml Vial Administered 12/28/19 06:54 Dose 25 mg .ROUTE .STK-MED ONE Sodium Chloride 1,000 mls @ 0 mls/hr 12/24/19 18:01 12/24/19 19:36 Nacl 0.9% 1000 Ml Iv Soln IV 12/24/19 18:02 Infused BOLUS ONE Infusion Wide Open Ceftriaxone Sodium/Dextrose 2 gm in 50 mls @ 100 mls/hr 12/24/19 18:01 12/24/19 19:07 Rocephin Rtu 2 Gm/D5w 50 Ml Premix Bag IV 12/24/19 18:30 Infused NOW ONE Infusion Ceftriaxone Sodium/Dextrose 1 gm in 50 mls @ 100 mls/hr 12/25/19 10:00 12/26/19 10:49 Rocephin Rtu 1 Gm/D5w 50 Ml Premix IV 01/01/20 09:59 Infused DAILY FERNY Infusion Insulin Human Lispro 16 unit 12/25/19 12:30 12/25/19 12:24 Humalog Insulin 100 Unit/1 Ml 3 Ml Vial SUBCUT 12/25/19 12:31 16 unit NOW ONE Administration Insulin Human Lispro Confirm 12/25/19 22:21 12/25/19 22:27 Humalog Insulin 100 Unit/1 Ml 3 Ml Vial Administered 12/25/19 22:22 Not Given Dose 1 unit .ROUTE .STK-MED ONE Insulin Human Lispro 15 unit 12/25/19 22:30 12/25/19 22:38 Humalog Insulin 100 Unit/1 Ml 3 Ml Vial SUBCUT 12/25/19 22:31 15 unit NOW ONE Administration Insulin Human Lispro 20 unit 12/26/19 13:30 12/26/19 13:34 Humalog Insulin 100 Unit/1 Ml 3 Ml Vial SUBCUT 12/26/19 13:31 20 unit NOW ONE Administration Insulin Human Lispro 20 unit 12/26/19 14:00 12/26/19 13:41 Humalog Insulin 100 Unit/1 Ml 3 Ml Vial SUBCUT 12/26/19 14:01 20 unit NOW ONE Administration Insulin Human NPH 20 unit 12/26/19 18:00 Humulin N (Nph) Insulin 100 Unit/1 Ml 3 Ml SUBCUT 01/25/20 17:59 QPM [facility] Insulin Human Regular 0 - 12 unit 12/24/19 22:00 12/25/19 11:37 Humulin R (Pyxis) Insulin 100 Unit/Ml 3ml SUBCUT 01/23/20 21:59 Not Given ACHS [facility] Protocol Insulin Human Regular 4 unit 12/25/19 10:30 12/25/19 09:45 Humulin R (Pyxis) Insulin 100 Unit/Ml 3ml SUBCUT 12/25/19 10:31 4 unit NOW ONE Administration Levothyroxine Sodium 0.075 mg 12/26/19 10:00 Synthroid 0.075 Mg Tablet PO 01/25/20 09:59 [id number]@1000 [facility] Levothyroxine Sodium 0.088 mg 12/29/19 10:00 Synthroid 0.088 Mg Tablet PO 01/28/20 09:59 SUSA@1000 [facility] Lisinopril 10 mg 12/24/19 22:00 12/24/19 22:31 Prinivil 10 Mg Tablet PO 12/24/19 23:00 10 mg DAILY FERNY Administration Metoprolol Tartrate Confirm 12/28/19 06:13 12/28/19 06:18 Lopressor Inj/Pf 5 Mg/5 Ml Sdv Administered 12/28/19 06:14 5 mg Dose Administration 5 mg IV .STK-MED ONE Metoprolol Tartrate 5 mg 12/28/19 06:45 Lopressor Inj/Pf 5 Mg/5 Ml Sdv IV 12/28/19 06:46 NOW ONE Assessment & Plan - Diagnosis (1) Atrial fibrillation with RVR Is this a current diagnosis for this admission?: Yes Plan: Likely secondary to her history of coronary artery disease now complicated by her suspected COVID-19 infection. She has only received 4 doses of Lopressor and, although her pulse not at goal, it is much improved. Recommendations: -Continue with current medical management for now and uptitrate Lopressor as needed to keep heart rate less than 120 bpm with physical activities. -Continue with anticoagulation. -Echocardiogram to assess for structural heart disease. -We will continue to follow with you. (2) Coronary artery disease Qualifiers: Coronary Disease-Associated Artery/Lesion type: [place] artery [place] vs. transplanted heart: [place] heart Associated angina: without angina Qualified Code(s): I25.10 - Atherosclerotic heart disease of [place] coronary artery without angina pectoris Is this a current diagnosis for this admission?: Yes Plan: The patient underwent stenting of the proximal right coronary artery in September 2001. She is currently free of ischemic symptoms however she does have lower extremity edema which she attributes to increased doses of Norvasc however I am concerned about the possibility of mild fluid overload as her fluid balance is almost 5 L positive although her urinary output has not been consistently measured. Her chest x-ray this morning does not show overt fluid overload. For unclear reasons to me she is on hydralazine which is not the best antihypertensive for patient with coronary artery disease. Her statin therapy is also low intensity. Recommendations: -Echocardiogram to assess for structural heart disease. -Discontinue hydralazine. -Uptitrate lisinopril as indicated to keep systolic blood pressure to 130/80 or below. -Strict intake and output. -Minimize IV fluids. -Low sodium/low cholesterol diet. -Increase Lipitor to 80 mg daily. -We will continue to follow-up with you. (3) Hypertension Qualifiers: Hypertension type: essential hypertension Qualified Code(s): I10 - Essential (primary) hypertension Is this a current diagnosis for this admission?: Yes Plan: Please see #2 above for recommendations.
[2019-12-28] MEDS: INSULIN LISPRO 100 UNIT/ML 3 ML VIAL SUBCUT SCH ×4 (09:32→22:26)
--- NOTE | 2019-12-28 09:32 | XCELERA REPORT ---
[address] [address] Transthoracic Echocardiogram Report Name: ALONZO DAWKINS Age: 64 yrs Gender: Female : 1955 Patient Status: Inpatient Patient Location: [address] [place] [address] Study Date: 12/27/2019 02:49 PM Height: 62 in Weight: 201 lb BSA: 1.9 m2 Procedure: A complete two-dimensional transthoracic echocardiogram was performed (2D, M-mode, spectral and color flow Doppler). The study was technically adequate with some images being suboptimal in quality. Reason For Study: a. josh, CHF Ordering Physician: LEWIS DOOLEY Performed By: Carmen Torres Interpretation Summary The left ventricle is grossly normal size. LV systolic function is difficult to assess due to rapid atrial fibrillation however it is grossly preserved. LV diastolic function could not be adequately assessed due to atrial fibrilation. The left ventricular wall motion is normal. There is no thrombus. LV diastolic function could not be adequately assessed due to atrial fibrilation. PFO is suspected, recommend saline contrast study in the outpatient setting. Mild MR, mild to moderate TR, trace PI. No prior studies for comparison. MMode/2D Measurements & Calculations RVDd: 3.5 cm LVIDd: 4.2 cm FS: 30.0 % Ao root diam: 2.4 cm IVSd: 0.83 cm LVIDs: 2.9 cm EDV(Teich): 79.1 ml Ao root area: 4.6 cm2 LVPWd: 0.84 cm ESV(Teich): 33.5 ml LA dimension: 3.2 cm EF(Teich): 57.6 % Doppler Measurements & Calculations MV E max berenice: MV P1/2t max berenice: Ao V2 max: LV V1 max P.9 cm/sec 127.8 cm/sec 150.5 cm/sec 4.4 mmHg MV P1/2t: 49.7 msec Ao max P.1 mmHgLV V1 max: MVA(P1/2t): 4.4 cm2 105.1 cm/sec MV dec slope: 753.5 cm/sec2 MV dec time: 0.17 sec PA V2 max: TR max berenice: MV P1/2t-pr_phl: 85.4 cm/sec 285.0 cm/sec 49.7 msec PA max P.9 mmHgTR max P.5 mmHg Left Ventricle The left ventricle is grossly normal size. LV systolic function is difficult to assess due to rapid atrial fibrillation however it is grossly preserved. LV diastolic function could not be adequately assessed due to atrial fibrilation. The left ventricular wall motion is normal. There is no thrombus. Right Ventricle The right ventricle is normal in size and function. There is normal right ventricular wall thickness. The right ventricular systolic function is normal. Atria The right atrium is normal. The left atrial size is normal. A patent foramen ovale is suspected. Mitral Valve The mitral valve is normal in structure and function. There is no mitral valve stenosis. There is a mild amount of mitral regurgitation. Aortic Valve The aortic valve is normal in structure and functions normally. There is no aortic valve stenosis. No aortic regurgitation is present. Tricuspid Valve The tricuspid is normal in structure and function. There is a mild to moderate amount of tricuspid regurgitation. Pulmonic Valve The pulmonic valve is normal in structure and function. There is a trace or physiologic amount of pulmonic regurgitation. Great Vessels The inferior vena cava appeared normal and decreased < 50% with respiration (RAP 10-15 mmHg). Effusions Normal pericardial fluid noted. There is no pleural effusion. : LEWIS DOOLEY Antonio
[2019-12-28] MEDS: ASCORBIC ACID 500 MG TABLET PO SCH ×2 (09:57→17:03)
[2019-12-28] MEDS: ASPIRIN 81 MG TABLET, ENT COATED PO SCH (09:57)
[2019-12-28] MEDS: CITALOPRAM HYDROBROMIDE 20 MG TABLET PO SCH (09:57)
[2019-12-28] MEDS: PREDNISONE 20 MG TABLET PO SCH (09:57)
[2019-12-28] MEDS: FOLIC ACID 1 MG TABLET PO SCH (09:57)
[2019-12-28] MEDS: CHOLECALCIFEROL (D3) 1,000 UNIT (25 MCG) TABLET PO SCH (09:57)
[2019-12-28] MEDS: ZINC SULFATE 220 MG CAPSULE PO SCH (09:57)
[2019-12-28] MEDS: MULTIVITAMIN TABLET PO SCH (09:57)
[2019-12-28] MEDS: ENOXAPARIN SODIUM INJ 80 MG/0.8 ML DISP.SYRIN SUBCUT SCH ×2 (09:58→22:26)
[2019-12-28] MEDS: INSULIN NPH (ISOPHANE), HUMAN 100 UNIT/ML 3 ML SUBCUT SCH ×2 (09:58→22:27)
[2019-12-28] MEDS: HYDROCHLOROTHIAZIDE 12.5 MG TABLET PO SCH (10:00)
[2019-12-28] MEDS: HYDRALAZINE HCL 25 MG TABLET PO SCH (10:00)
[2019-12-28] MEDS: AMLODIPINE BESYLATE 10 MG TABLET PO SCH (10:00)
[2019-12-28] MEDS: LISINOPRIL 10 MG TABLET PO SCH (10:01)
--- NOTE | 2019-12-28 17:45 | Progress Note ---
Provider Note Provider Note: I was asked by the hospitalist service to perform ultrasound of the lung to evaluate patient's pulmonary status. She has been having intermittent atrial fibrillation. Some of her labs including d-dimer were elevated and there was concern for possible COVID despite negative testing x2. Patient had had an episode of shortness of breath during atrial fibrillation. On bedside ultrasound patient appeared comfortable. She was breathing comfortably not requiring oxygen. She is able to walk around the room. While patient was sitting ultrasound using high-frequency and low-frequency probes was done. There was an occasional "B" line noticeably on the right but there were strong and significant A-line's. There certainly was no light be scientifically seen in COVID cases. There was an occasional undulation in the pleural line with deep breath but none significant. Lung ultrasound is sensitive for interstitial changes and distinct findings for COVID were not seen. Although sensitivity is high findings are neither specific or directly correlated with SARS COVID-19. Chest x-ray does not show any groundglass appearance and CT scan done on presentation did not show the typical subpleural basilar changes we have been seen in COVID. I have recommended a follow-up CT scan. I would expect to see possible interstitial changes related to pulmonary edema in these at times may appear to be groundglass. Given how well the patient looks and positive findings on ultrasound I do not feel that this is SARSCOVID 19 related process. Her hyponatremia may be related to her antidepressant medicine and her hydrochlorothiazide. That being said her urine sodium is indicative of a non-SI ADH state. A low urine sodium with someone with atrial fibrillation may be indicative of hypovolemia that would need to be considered. Please let us know if we can be of any further help or service.
--- NOTE | 2019-12-28 17:50 | PDOC PROGRESS REPORT ---
Subjective Progress Note for:: 12/28/19 Subjective:: Patient was seen on morning rounds and again this afternoon. She is found ambulating in her room, comfortably, on room air. She has dyspnea again, but is maintaining oxygen saturations on room air. Rhythm aware and currently feeling palpitations. She also complains of fatigue and intermittent diaphoresis. She denies fever, chills, chest pain, abdominal pain, nausea, vomiting. She has no other questions or concerns at this time. Nursing reports low-grade temp of 100.9 today. Continues to have atrial fibrillation RVR with heart rate 120-140. Reason For Visit: COPD EXACERBATION,CORONARY ARTERY DISEASE,HYPERTEN Physical Exam Vital Signs: Temp Pulse Resp BP Pulse Ox 98.0 F 123 H 24 H 121/72 98 12/28/19 16:39 12/28/19 16:39 12/28/19 16:39 12/28/19 16:39 12/28/19 16:39 Intake & Output 12/27/19 12/28/19 12/29/19 06:59 06:59 06:59 Intake Total 1470 2000 520 Balance 1470 2000 520 Weight 74.2 kg General appearance: PRESENT: no acute distress, cooperative, well-developed, well-nourished Head exam: PRESENT: atraumatic, normocephalic Eye exam: PRESENT: conjunctiva pink, EOMI, PERRLA. ABSENT: scleral icterus Mouth exam: PRESENT: moist, tongue midline Teeth exam: PRESENT: poor dentation Respiratory exam: PRESENT: clear to auscultation luz maria, symmetrical, unlabored. ABSENT: rales, rhonchi, wheezes Cardiovascular exam: PRESENT: irregular rhythm, tachycardia. ABSENT: diastolic murmur, rubs, systolic murmur Pulses: PRESENT: normal dorsalis pedis pul Vascular exam: PRESENT: normal capillary refill GI/Abdominal exam: PRESENT: normal bowel sounds, soft. ABSENT: distended, guarding, mass, organolmegaly, rebound, tenderness Rectal exam: PRESENT: deferred Extremities exam: PRESENT: full ROM. ABSENT: calf tenderness, clubbing, pedal edema Musculoskeletal exam: PRESENT: ambulatory Neurological exam: PRESENT: alert, awake, oriented to person, oriented to place, oriented to time, oriented to situation, CN II-XII grossly intact. ABSENT: motor sensory deficit Psychiatric exam: PRESENT: anxious, appropriate affect, normal mood. ABSENT: homicidal ideation, suicidal ideation Skin exam: PRESENT: dry, intact, warm. ABSENT: cyanosis, rash Results Laboratory Results: 12/28/19 05:47 12/28/19 05:47 12/28/19 12/28/19 05:47 05:47 WBC 8.2 RBC 3.94 Hgb 11.2 L Hct 32.6 L MCV 83 MCH 28.5 MCHC 34.5 RDW 15.0 H Plt Count 202 Sodium 130.8 L Potassium 4.3 Chloride 96 L Carbon Dioxide 25 Anion Gap 10 BUN 23 H Creatinine 0.90 Est GFR ( Amer) > 60 Glucose 110 Calcium 9.1 Impressions: Chest/Abdomen CTA 12/24/19 18:00 IMPRESSION: Mild emphysema. Chest X-Ray 12/28/19 00:00 IMPRESSION: No interval change in the chest. Assessment and Plan - Diagnosis (1) Atrial fibrillation with RVR Is this a current diagnosis for this admission?: Yes Plan: Atrial fibrillation with RVR. Cardiology was consulted; discussed with Dr. De Anda. He advises to discontinue atenolol. Increase to Toprol 50 mg every 6 hours. Continue anticoagulation; plan for discharge on Eliquis. (2) COVID-19 determined by clinical diagnostic criteria Is this a current diagnosis for this admission?: Yes Plan: Continue to have a suspicion for COVID-19 virus infection Rapid and send out COVID-19 tests are negative. However, she has numerous laboratory results supportive of COVID-19 (elevated d- dimer, transaminases, CRP, LDH, ferritin) that can not be explained otherwise. CTA negative for pulmonary embolus and pneumonia. COPD exacerbation is not suspected (no wheezing on exam) and certainly would not be the cause of the above-mentioned laboratory changes. D-dimer improved (1.47) CRP equivocal (132.7 Ferritin increased (581) LDH increased (289) Patient is admitted to medical floor and continued cardiac telemetry. Due to elevated d-dimer, she is placed on full dose Lovenox. Received 3 days of Rocephin Completed 5 day course of Azithromycin. Transitioned to p.o. prednisone. Continue vitamin C, vitamin D, zinc, and melatonin supplementation. Encourage pulmonary toilet. Contact and droplet precautions. Discussed with Dr. Ly today. Patient and family with, understandable, high level of frustration/anxiety regarding unclear dx. Dr. Ly provided bedside eval w/ US. B lines noted; recommends follow up CT Chest to evaluate for ground glass changes. If negative, then in conjunction w/ US can effectively r/o COVID. CT Chest pending. (3) COPD (chronic obstructive pulmonary disease) with chronic bronchitis Is this a current diagnosis for this admission?: Yes Plan: Stable and without exacerbation at this time. The patient reports COPD. She states that she has not had an exacerbation in a long time. She does have an albuterol rescue inhaler at home but has been not on any chronic daily inhaler therapy. She does not use oxygen at home. (4) Coronary artery disease Qualifiers: Coronary Disease-Associated Artery/Lesion type: [place] artery [place] vs. transplanted heart: [place] heart Associated angina: without angina Qualified Code(s): I25.10 - Atherosclerotic heart disease of [place] coronary artery without angina pectoris Is this a current diagnosis for this admission?: Yes Plan: The patient states that she had a stent placed approximately 10 years ago or more. She was following with cardiology but then decided to change practitioners. She states she would be seeing Dr. Frazier at [facility] to establish with new cardiology. Resume aspirin and statin therapy. Resume a home antihypertensive regiment of amlodipine, lisinopril/HCTZ, bisprolol, and hydralazine. Cardiac diet. (5) Depression Qualifiers: Depression Type: unspecified Qualified Code(s): F32.9 - Major depressive disorder, single episode, unspecified Is this a current diagnosis for this admission?: Yes Plan: Home dose Celexa. Monitor QTC while given concurrently with azithromycin. Vistaril as needed anxiety (6) Diabetes mellitus Qualifiers: Diabetes mellitus type: type 1 Diabetes mellitus complication status: without complication Qualified Code(s): E10.9 - Type 1 diabetes mellitus without complications Is this a current diagnosis for this admission?: Yes Plan: A1c 6.4%. Resume home dose NPH. Accu-Cheks before meals and at bedtime with Humalog per sliding scale coverage. Hypoglycemia protocol. Cardiac/consistent carb diet. (7) Elevated d-dimer Is this a current diagnosis for this admission?: Yes Plan: CTA chest negative for pulmonary embolus. Improving; d-dimer down to 1.47 Because there is a suspicion of Covid-19 and her d-dimer is greater than 1.0 she will be placed on full anticoagulant therapy with Lovenox 1 mg/kg every 12 hours. (8) Elevated liver function tests Is this a current diagnosis for this admission?: Yes Plan: Resolved. She reports rare to occasional glasses of wine. No other indication for elevated transaminases. Transaminitis is 1 of the abnormalities seen in COVID. Continue to monitor. (9) Fever Qualifiers: Fever type: unspecified Qualified Code(s): R50.9 - Fever, unspecified Is this a current diagnosis for this admission?: Yes Plan: Fever along with some of her symptoms and laboratory studies certainly create a high index of suspicion for Covid-19. Afebrile x48 hrs. Acetaminophen for elevated temperature and antibiotics as well as other recommended COVID treatments until the serology returns Blood cultures (1/4 bottles) shows coag negative staph; contaminant. Antibiotics as above. (10) Hypertension Qualifiers: Hypertension type: essential hypertension Qualified Code(s): I10 - Essential (primary) hypertension Is this a current diagnosis for this admission?: Yes Plan: Resume a home antihypertensive regiment of lisinopril/HCTZ, bisprolol, and hydralazine. Increased amlodipine to 10 mg daily. Cardiac diet. (11) Hyponatremia Is this a current diagnosis for this admission?: Yes Plan: Chronic per patient, however, labs from May 2019 show sodium 134.8; therefore, her hyponatremia today is significantly lower than what is presumed to be her baseline. Sodium trending overall stable; 125.3-> 122.5-> 125.1 Liberalize dietary sodium. Fluid restrict 1.2 L/daily Follow up chemistry. (12) Hypothyroidism, postsurgical Is this a current diagnosis for this admission?: Yes Plan: Continue home dose levothyroxine. (13) Suspected COVID-19 virus infection Is this a current diagnosis for this admission?: Yes Plan: As above. - Time Time Spent with patient: 35 or more minutes Medications reviewed and adjusted accordingly: Yes Anticipated Discharge Disposition: Home, Self Care Anticipated Discharge Timeframe: within 48 hours
[2019-12-28] MEDS ORDERED: METOPROLOL TARTRATE 25 MG TABLET PO SCH (18:00)
[2019-12-28] MEDS: METOPROLOL TARTRATE 50 MG TABLET PO SCH ×2 (18:58→23:17)
--- NOTE | 2019-12-28 20:22 | RADIOLOGY REPORT (SQ) ---
EXAM DESCRIPTION: CT CHEST WITH IV CONTRAST COMPLETED DATE/TME: 12/28/2019 00:00 CLINICAL HISTORY: 64 years, Female, dyspnea COMPARISON: Prior CT chest dated 12/24/2019 TECHNIQUE: Contrast enhanced CT of the chest was acquired. Images were obtained after the administration of 73 mL of Omnipaque 350 intravenous contrast. Images stored on PACS. All CT scanners at this facility use dose modulation, iterative reconstruction, and/or weight based dosing when appropriate to reduce radiation dose to as low as reasonably achievable (ALARA). [facility]: Dose Right [facility]: CareDose [facility]: Dose Right [facility]: Teradose 4D [facility]: [employer] LIMITATIONS: None. FINDINGS: Central airways are patent. Lung windows show biapical scarring. Visualized is a 3 mm solid nodule within the left upper lobe on image 13 of series 4. An additional 4 mm subpleural nodule is noted within the right lower lobe on image 31 of series 4. Lungs are otherwise clear. Mediastinal windows show no significant hilar or mediastinal lymph node enlargement. Minimal calcifications are noted about the coronary vessels and thoracic aorta. Visualized pulmonary vasculature appears to opacify with contrast normally. Limited evaluation of the upper abdomen reveals calcifications about the abdominal aorta. Splenic varices are evident along with a suspected splenorenal shunt. Bone windows show a subacute fracture involving the left anterior fifth rib. No destructive osseous lesions. IMPRESSION: No acute abnormality within the chest. Subacute fracture involving the left anterior fifth rib. 3.0 mm solid pulmonary nodule within the upper lobe. If patient is low risk for malignancy, no routine follow-up imaging is recommended; if patient is high risk for malignancy, a non-contrast Chest CT at 12 months is optional. If performed and the nodule is stable at 12 months, no further follow-up is recommended. These guidelines do not apply to immunocompromised patients and patients with cancer. Follow up in patients with significant comorbidities as clinically warranted. For lung cancer screening, adhere to Lung-RADS guidelines. Reference: Radiology. 2017; 284(1):228-43. Splenic varices with splenorenal shunt. TECHNICAL DOCUMENTATION: Quality ID # [id number]: Final reports with documentation of one or more dose reduction techniques (e.g., Automated exposure control, adjustment of the mA and/or kV according to patient size, use of iterative reconstruction technique) copyright 2011 [employer]- All Rights Reserved
[2019-12-28] MEDS: ATORVASTATIN CALCIUM 20 MG TABLET PO SCH (22:28)
[2019-12-28] MEDS: MELATONIN 3 MG TABLET PO SCH (22:28)
[2019-12-28] MEDS: CALCIUM CARBONATE 600 MG/VITAMIN D3 400 UNIT TABLET PO SCH (22:28)
[2019-12-29 03:55] LABS: APPEARANCE,URINE CLEAR; BILIRUBIN,URINE NEGATIVE (NEGATIVE); COLOR,URINE YELLOW; GLUCOSE, URINE 50 mg/dL (NEGATIVE); KETONES,URINE NEGATIVE (NEGATIVE); LEUKOCYTE ESTERASE,URINE NEGATIVE (NEGATIVE); NITRITE,URINE NEGATIVE (NEGATIVE); PROTEIN,URINE 100 mg/dL (NEGATIVE); URINE SPECIFIC GRAVITY 1.038; UROBILINOGEN,URINE NEGATIVE mg/dL (<2.0)
[2019-12-29] MEDS: METOPROLOL TARTRATE 50 MG TABLET PO SCH ×4 (05:37→23:28)
[2019-12-29] MEDS: PANTOPRAZOLE SODIUM 40 MG TABLET.DR PO SCH ×2 (05:37→17:08)
[2019-12-29] MEDS: LEVOTHYROXINE SODIUM 0.088 MG TABLET PO SCH (05:45)
[2019-12-29 06:18] LABS: ANION GAP 7 (5-19); BLOOD UREA NITROGEN 30 mg/dL (7-20); CALCIUM 8.7 mg/dL (8.4-10.2); CARBON DIOXIDE 27 mmol/L (22-30); CHLORIDE 98 mmol/L (98-107); GLUCOSE 95 mg/dL (75-110)
--- NOTE | 2019-12-29 08:01 | PDOC PROGRESS REPORT ---
Subjective Progress Note for:: 12/29/19 Subjective:: ALONZO DAWKINS is a 64 year old female with a history of coronary artery disease status post PCI to the proximal RCA with a 4.0 mm x 18 mm Elite stent in September 2001, palpitations, PACs in the past, COPD, hyperlipidemia, hypertension, depression, diabetes mellitus and hyponatremia who was admitted to [facility] on 12/24/2019 with several weeks of increasing shortness of breath and cough as well as fevers and who is consulted to our service for rapid atrial fibrillation. The hospitalist service has been treating her for COVID-19 as she clinically is having all symptoms and signs of COVID infection despite negative testing. The patient had been responding appropriately to treatment for her pulmonary condition however began to have episodes of paroxysmal atrial fibri llation recently and, as of yesterday, had remained in rapid atrial fibrillation. She was begun on Lopressor 25 p.o. every 6 with some improvement in her pulse. This morning she is found in bed, resting comfortably although she complains of shortness of breath and racing heart. She feels hot to the touch. 12/29/2019: The patient feels 100% better this morning when compared to yesterday and has no cardiovascular complaints. She underwent CT scan of the chest as well as lung ultrasound yesterday all of which found no evidence of COVID infection. Her beta-elizabet was increased to 50 mg p.o. every 6 hours with a significant improvement in her heart rate. Physical exam on 12/29/2019: GENERAL: Pleasant and conversational. Oriented x3 with normal mood. Not in acute distress however she is speaking in short sentences and appears to be short of breath. HEENT: Normocephalic, atraumatic. Pupils equal. Sclerae anicteric. Oropharynx moist. NECK: No JVD. No carotid bruits. LUNGS: Clear to auscultation bilaterally, decreased breath sounds bilaterally. Normal respiratory effort without the use of accessory muscles or intercostal retractions. CARDIOVASCULAR: Irregular rate and rhythm, normal S1 and S2 without murmurs, rubs, or gallops. PMI not displaced. ABDOMEN: No masses or tenderness to palpation. No bruit. No splenomegaly or hepatomegaly. No abdominal aorta bruit noted. EXTREMITIES: 1+ pitting edema bilaterally, no cyanosis, no clubbing. +2 pulses femoral and pedal pulses bilaterally. SKIN: No lesions or rashes. MUSCULOSKELETAL: No chest tenderness to palpation. NEUROLOGIC: Nonfocal. No gross sensory or motor deficits bilateral upper or lower extremities. Reason For Visit: COPD EXACERBATION,CORONARY ARTERY DISEASE,HYPERTEN Physical Exam Vital Signs: Temp Pulse Resp BP Pulse Ox 97.8 F 81 19 116/76 97 12/29/19 04:24 12/29/19 04:24 12/29/19 04:24 12/29/19 04:24 12/29/19 04:24 Intake & Output 12/28/19 12/29/19 12/30/19 06:59 06:59 06:59 Intake Total 2000 520 Output Total 200 Balance 2000 320 Weight 74.2 kg Results Laboratory Results: 12/28/19 05:47 12/29/19 05:32 12/29/19 12/29/19 03:30 05:32 Sodium 132.2 L Potassium 4.0 Chloride 98 Carbon Dioxide 27 Anion Gap 7 BUN 30 H Creatinine 0.96 Est GFR ( Amer) > 60 Glucose 95 Calcium 8.7 Urine Color YELLOW Urine Appearance CLEAR Urine pH 6.0 Ur Specific [place] 1.038 Urine Protein 100 H Urine Glucose (UA) 50 H Urine Ketones NEGATIVE Urine Blood NEGATIVE Urine Nitrite NEGATIVE Ur Leukocyte Esterase NEGATIVE Urine WBC (Auto) 1 Urine RBC (Auto) 1 Impressions: Chest/Abdomen CTA 12/24/19 18:00 IMPRESSION: Mild emphysema. Chest CT 12/28/19 00:00 IMPRESSION: No acute abnormality within the chest. Subacute fracture involving the left anterior fifth rib. 3.0 mm solid pulmonary nodule within the upper lobe. If patient is low risk for malignancy, no routine follow-up imaging is recommended; if patient is high risk for malignancy, a non-contrast Chest CT at 12 months is optional. If performed and the nodule is stable at 12 months, no further follow-up is recommended. These guidelines do not apply to immunocompromised patients and patients with cancer. Follow up in patients with significant comorbidities as clinically warranted. For lung cancer screening, adhere to Lung-RADS guidelines. Reference: Radiology. 2017; 284(1):228-43. Splenic varices with splenorenal shunt. TECHNICAL DOCUMENTATION: Quality ID # [id number]: Final reports with documentation of one or more dose reduction techniques (e.g., Automated exposure control, adjustment of the mA and/or kV according to patient size, use of iterative reconstruction technique) copyright 2010 [employer]- All Rights Reserved Chest X-Ray 12/28/19 00:00 IMPRESSION: No interval change in the chest. 12/28/19 05:47 12/29/19 05:32 MCV 83 fl (80-97) 12/28/19 05:47 MCH 28.5 pg (27.0-33.4) 12/28/19 05:47 MCHC 34.5 g/dL (32.0-36.0) 12/28/19 05:47 RDW 15.0 % (11.5-14.0) H 12/28/19 05:47 Seg Neutrophils % 86.0 % (42-78) H 12/25/19 05:06 Chloride 98 mmol/L (98-107) 12/29/19 05:32 Carbon Dioxide 27 mmol/L (22-30) 12/29/19 05:32 Anion Gap 7 (5-19) 12/29/19 05:32 Est GFR ( Amer) > 60 (>60) 12/29/19 05:32 Est GFR (Non-Af Amer) Cancelled 12/24/19 15:01 Glucose 95 mg/dL (75-110) 12/29/19 05:32 Calcium 8.7 mg/dL (8.4-10.2) 12/29/19 05:32 Phosphorus 3.2 mg/dL (2.5-4.5) 12/25/19 05:06 Magnesium 1.5 mg/dL (1.6-2.3) L 12/25/19 05:06 Ferritin 581.00 ng/mL (11.1-264.0) H 12/26/19 05:14 Total Bilirubin 0.6 mg/dL (0.2-1.3) 12/24/19 16:25 AST 84 U/L (14-36) H 12/24/19 16:25 Alkaline Phosphatase 69 U/L (38-126) 12/24/19 16:25 C-Reactive Protein 132.7 mg/L (<10.0) H 12/26/19 05:14 Total Protein 7.9 g/dL (6.3-8.2) 12/24/19 16:25 Albumin 4.4 g/dL (3.5-5.0) 12/24/19 16:25 Triglycerides 105 mg/dL (<150) 12/25/19 05:06 Cholesterol 122.99 mg/dL (0-200) 12/25/19 05:06 LDL Cholesterol Direct 46 mg/dL (<100) 12/25/19 05:06 VLDL Cholesterol 21.0 mg/dL (10-31) 12/25/19 05:06 HDL Cholesterol 52 mg/dL (>40) 12/25/19 05:06 TSH 0.13 uIU/mL (0.47-4.68) L 12/25/19 05:06 Free T4 1.45 ng/dL (0.78-2.19) 12/25/19 05:06 Free T3 pg/mL 1.81 pg/mL (2.77-5.27) L 12/25/19 05:06 Urine Color YELLOW 12/29/19 03:30 Urine Appearance CLEAR 12/29/19 03:30 Urine pH 6.0 (5.0-9.0) 12/29/19 03:30 Ur Specific [place] 1.038 12/29/19 03:30 Urine Protein 100 mg/dL (NEGATIVE) H 12/29/19 03:30 Urine Glucose (UA) 50 mg/dL (NEGATIVE) H 12/29/19 03:30 Urine Ketones NEGATIVE mg/dL (NEGATIVE) 12/29/19 03:30 Urine Blood NEGATIVE (NEGATIVE) 12/29/19 03:30 Urine Nitrite NEGATIVE (NEGATIVE) 12/29/19 03:30 Ur Leukocyte Esterase NEGATIVE (NEGATIVE) 12/29/19 03:30 Urine WBC (Auto) 1 /HPF 12/29/19 03:30 Urine RBC (Auto) 1 /HPF 12/29/19 03:30 Current Medication List Generic Name Dose Route Start Last Admin Trade Name Freq PRN Reason Stop Dose Admin Acetaminophen 650 mg 12/24/19 19:19 Tylenol 325 Mg Tablet PO 01/23/20 19:18 Q4HP PRN FOR PAIN OR TEMP Al Hydrox/Mg Hydrox/Simethicone 15 ml 12/24/19 19:19 Maalox Plus Susp 30 Udcup PO 01/23/20 19:18 Q6HP PRN HEARTBURN Albuterol 2 puff 12/24/19 19:48 Proair Hfa Inhalation Aerosol 8.5 Gm Mdi IH 01/23/20 19:47 Q4HP PRN WHEEZING Amlodipine Besylate 10 mg 12/26/19 10:00 12/28/19 10:00 Norvasc 10 Mg Tablet PO 01/25/20 09:59 Not Given DAILY FERNY Ascorbic Acid 500 mg 12/25/19 10:00 12/28/19 17:03 Vitamin C 500 Mg Tablet PO 01/24/20 09:59 500 mg BID FERNY Administration Aspirin 81 mg 12/26/19 10:00 12/28/19 09:57 Ecotrin 81 Mg Ec Tablet PO 01/25/20 09:59 81 mg DAILY FERNY Administration Atorvastatin Calcium 80 mg 12/28/19 22:00 12/28/19 22:28 Lipitor 20 Mg Tablet PO 01/27/20 21:59 80 mg QHS FERNY Administration Calcium Carbonate 1 tab 12/25/19 22:00 12/28/19 22:28 Caltrate 600-Vit D3 400 Tablet PO 01/24/20 21:59 1 tab QHS FERNY Administration Cetirizine HCl 10 mg 12/25/19 20:25 Zyrtec 10 Mg Tablet PO 01/24/20 20:24 HSP PRN FOR ALLERGIES Cholecalciferol 2,000 unit 12/25/19 10:00 12/28/19 09:57 Vitamin D3 1000 Unit Tablet PO 01/24/20 09:59 2,000 unit DAILY FERNY Administration Citalopram Hydrobromide 10 mg 12/26/19 10:00 12/28/19 09:57 Celexa 20 Mg Tablet PO 01/25/20 09:59 10 mg DAILY FERNY Administration Dextrose 12.5 gm 12/24/19 19:39 Dextrose Inj 50% Syringe (25 Gm/50 Ml) IV 01/23/20 19:38 PRN PRN FOR BG 50-69 IN ALERT PATIENT Protocol Dextrose 25 gm 12/24/19 19:39 Dextrose Inj 50% Syringe (25 Gm/50 Ml) IV 01/23/20 19:38 PRN PRN PER PROTOCOL Protocol Enoxaparin Sodium 80 mg 12/24/19 22:00 12/28/19 22:26 Lovenox Inj 80 Mg/0.8 Ml Disp.Syrin SUBCUT 01/23/20 21:59 80 mg Q12 FERNY Administration Folic Acid 1 mg 12/26/19 10:00 12/28/19 09:57 Folvite 1 Mg Tablet PO 01/25/20 09:59 1 mg DAILY FERNY Administration Glucagon 1 mg 12/24/19 19:39 Glucagen Inj 1 Mg Vial IM 01/23/20 19:38 PRN PRN Evaluate for BG < 70 Protocol Glucose 15 gm 12/24/19 19:39 Glutose 40% Gel 15 Gm Tube PO 01/23/20 19:38 PRN PRN FOR BG 50-69 IN ALERT PATIENT Protocol Glucose 30 gm 12/24/19 19:39 Glutose 40% Gel 15 Gm Tube PO 01/23/20 19:38 PRN PRN FOR BG < 50 IN ALERT PATIENT Protocol Hydrochlorothiazide 12.5 mg 12/26/19 10:00 12/28/19 10:00 Hydrodiuril 12.5 Mg Tablet PO 01/25/20 09:59 Not Given DAILY [facility] Hydroxyzine Pamoate 25 mg 12/26/19 16:16 Vistaril 25 Mg Capsule PO 01/25/20 16:15 Q8HP PRN ANXIETY Insulin Human Lispro 0 - 12 unit 12/25/19 16:00 12/28/19 22:26 Humalog Insulin 100 Unit/1 Ml 3 Ml Vial SUBCUT 01/24/20 15:59 10 unit ACHS FERNY Administration Protocol Insulin Human NPH 25 unit 12/26/19 09:00 12/28/19 09:58 Humulin N (Nph) Insulin 100 Unit/1 Ml 3 Ml SUBCUT 01/25/20 08:59 25 unit QAM FERNY Administration Insulin Human NPH 20 unit 12/26/19 22:00 12/28/19 22:27 Humulin N (Nph) Insulin 100 Unit/1 Ml 3 Ml SUBCUT 01/25/20 21:59 20 unit QHS FERNY Administration Levothyroxine Sodium 0.075 mg 12/26/19 08:30 12/28/19 05:45 Synthroid 0.075 Mg Tablet PO 01/25/20 08:29 0.075 mg [id number]@0600 FERNY Administration Levothyroxine Sodium 0.088 mg 12/29/19 06:00 12/29/19 05:45 Synthroid 0.088 Mg Tablet PO 01/28/20 05:59 0.088 mg SuSa@0600 FERNY Administration Lisinopril 10 mg 12/29/19 10:00 Prinivil 10 Mg Tablet PO 01/28/20 09:59 DAILY FERNY Melatonin 6 mg 12/24/19 22:00 12/28/19 22:28 Melatonin 3 Mg Tablet PO 01/23/20 21:59 6 mg QHS FERNY Administration Metoprolol Tartrate 50 mg 12/28/19 18:00 12/29/19 05:37 Lopressor 50 Mg Tablet PO 01/27/20 17:59 50 mg Q6 FERNY Administration Multivitamins 1 tab 12/26/19 10:00 12/28/19 09:57 Tab-A-Mirella (Multiple Vitamin) Tablet PO 01/25/20 09:59 1 tab DAILY FERNY Administration Pantoprazole Sodium 40 mg 12/26/19 17:00 12/29/19 05:[address] Tablet PO 01/25/20 16:59 40 mg BID@0600,1700 FERNY Administration Prednisone 60 mg 12/28/19 10:00 12/28/19 09:57 Deltasone 20 Mg Tablet PO 01/27/20 09:59 60 mg DAILY FERNY Administration Promethazine HCl 12.5 mg 12/24/19 19:19 12/28/19 05:55 Phenergan Inj 25 Mg/1 Ml Vial IV 01/23/20 19:18 12.5 mg Q4HP PRN Administration FOR NAUSEA/VOMITING Sodium Chloride 2.5 ml 12/24/19 22:00 12/29/19 05:39 Saline Flush 2.5 Ml Monoject Prefil Syrin IV 01/23/20 21:59 2.5 ml Q8 FERNY Administration Zinc Sulfate 220 mg 12/25/19 10:00 12/28/19 09:57 Zinc-220 Capsule PO 01/24/20 09:59 220 mg DAILY FERNY Administration Zolpidem Tartrate 5 mg 12/26/19 16:16 Ambien 5 Mg Tablet PO 01/02/20 16:15 HSP PRN SLEEP OR INSOMNIA Discontinued Medications Generic Name Dose Route Start Last Admin Trade Name Freq PRN Reason Stop Dose Admin Albuterol 2.5 mg 12/24/19 19:19 Ventolin 0.083% Neb 2.5 Mg/3 Ml Ampul NEB 01/23/20 19:18 RTQ4HP PRN SHORTNESS OF BREATH Amlodipine Besylate 5 mg 12/26/19 10:00 Norvasc 5 Mg Tablet PO 01/25/20 09:59 DAILY FERNY Aspirin 81 mg 12/24/19 22:00 12/24/19 22:16 Ecotrin 81 Mg Ec Tablet PO 12/24/19 23:00 81 mg QHS FERNY Administration Atenolol 100 mg 12/26/19 10:00 12/27/19 09:42 Tenormin 50 Mg Tablet PO 01/25/20 09:59 100 mg DAILY FERNY Administration Atorvastatin Calcium 40 mg 12/24/19 22:00 12/24/19 22:28 Lipitor 40 Mg Tablet PO 12/24/19 23:00 40 mg QHS FERNY Administration Atorvastatin Calcium 20 mg 12/25/19 22:00 12/27/19 22:12 Lipitor 20 Mg Tablet PO 01/24/20 21:59 20 mg QHS FERNY Administration Azithromycin 500 mg 12/24/19 18:01 12/24/19 18:35 Zithromax 250 Mg Tablet PO 12/24/19 18:02 500 mg NOW ONE Administration Azithromycin 250 mg 12/25/19 18:00 12/27/19 17:33 Zithromax 250 Mg Tablet PO 01/01/20 17:59 250 mg QPM FERNY Administration Dexamethasone Sodium Phosphate 2 mg 12/24/19 22:00 12/26/19 13:35 Decadron Inj 4 Mg/Ml Vial IV 01/23/20 21:59 2 mg Q8 FERNY Administration Dexamethasone Sodium Phosphate 2 mg 12/26/19 22:00 12/27/19 09:44 Decadron Inj 4 Mg/Ml Vial IV 01/25/20 21:59 2 mg Q12 FERNY Administration Diltiazem HCl 20 mg 12/25/19 11:21 12/25/19 11:44 Cardizem Inj 25 Mg/5 Ml Vial IV 12/25/19 11:22 20 mg NOW ONE Administration Diltiazem HCl 20 mg 12/27/19 11:30 12/27/19 12:08 Cardizem Inj 25 Mg/5 Ml Vial IV 12/27/19 11:31 Not Given NOW ONE Diltiazem HCl 25 mg 12/28/19 07:00 12/28/19 06:59 Cardizem Inj 25 Mg/5 Ml Vial IV 12/28/19 07:01 25 mg NOW ONE Administration Diltiazem HCl Confirm 12/28/19 06:53 07/31/20 07:54 Cardizem Inj 25 Mg/5 Ml Vial Administered 12/28/19 06:54 Not Given Dose 25 mg .ROUTE .STK-MED ONE Hydralazine HCl 25 mg 12/26/19 10:00 12/28/19 10:00 Apresoline 25 Mg Tablet PO 01/25/20 09:59 Not Given Q12 FERNY Sodium Chloride 1,000 mls @ 0 mls/hr 12/24/19 18:01 12/24/19 19:36 Nacl 0.9% 1000 Ml Iv Soln IV 12/24/19 18:02 Infused BOLUS ONE Infusion Wide Open Ceftriaxone Sodium/Dextrose 2 gm in 50 mls @ 100 mls/hr 12/24/19 18:01 0 12/24/19 19:07 Rocephin Rtu 2 Gm/D5w 50 Ml Premix Bag IV 12/24/19 18:30 Infused NOW ONE Infusion Ceftriaxone Sodium/Dextrose 1 gm in 50 mls @ 100 mls/hr 12/25/19 10:00 12/26/19 10:49 Rocephin Rtu 1 Gm/D5w 50 Ml Premix IV 01/01/20 09:59 Infused DAILY FERNY Infusion Insulin Human Lispro 16 unit 12/25/19 12:30 12/25/19 12:24 Humalog Insulin 100 Unit/1 Ml 3 Ml Vial SUBCUT 12/25/19 12:31 16 unit NOW ONE Administration Insulin Human Lispro Confirm 12/25/19 22:21 12/25/19 22:27 Humalog Insulin 100 Unit/1 Ml 3 Ml Vial Administered 12/25/19 22:22 Not G iven Dose 1 unit .ROUTE .[facility] ONE Insulin Human Lispro 15 unit 12/25/19 22:30 12/25/19 22:38 Humalog Insulin 100 Unit/1 Ml 3 Ml Vial SUBCUT 12/25/19 22:31 15 unit NOW ONE Administration Insulin Human Lispro 20 unit 12/26/19 13:30 12/26/19 13:34 Humalog Insulin 100 Unit/1 Ml 3 Ml Vial SUBCUT 12/26/19 13:31 20 unit NOW ONE Administration Insulin Human Lispro 20 unit 12/26/19 14:00 12/26/19 13:41 Humalog Insulin 100 Unit/1 Ml 3 Ml Vial SUBCUT 12/26/19 14:01 20 unit NOW ONE Administration Insulin Human NPH 20 unit 12/26/19 18:00 Humulin N (Nph) Insulin 100 Unit/1 Ml 3 Ml SUBCUT 01/25/20 17:59 QPM [facility] Insulin Human Regular 0 - 12 unit 12/24/19 22:00 12/25/19 11:37 Humulin R (Pyxis) Insulin 100 Unit/Ml 3ml SUBCUT 01/23/20 21:59 Not Given ACHS [facility] Protocol Insulin Human Regular 4 unit 12/25/19 10:30 12/25/19 09:45 Humulin R (Pyxis) Insulin 100 Unit/Ml 3ml SUBCUT 12/25/19 10:31 4 unit NOW ONE Administration Levothyroxine Sodium 0.075 mg 12/26/19 10:00 Synthroid 0.075 Mg Tablet PO 01/25/20 09:59 [email or web address] [facility] Levothyroxine Sodium 0.088 mg 12/29/19 10:00 Synthroid 0.088 Mg Tablet PO 01/28/20 09:59 [email or web address]@1000 [facility] Lisinopril 10 mg 12/24/19 22:00 12/24/19 22:31 Prinivil 10 Mg Tablet PO 12/24/19 23:00 10 mg DAILY [facility] Administration Lisinopril 20 mg 12/26/19 10:00 12/28/19 10:01 Prinivil 10 Mg Tablet PO 01/25/20 09:59 Not Given DAILY [facility] Metoprolol Tartrate 25 mg 12/27/19 12:00 12/28/19 17:03 Lopressor 25 Mg Tablet PO 01/26/20 11:59 25 mg Q6 FERNY Administration Metoprolol Tartrate Confirm 12/28/19 06:13 12/28/19 06:18 Lopressor Inj/Pf 5 Mg/5 Ml Sdv Administered 12/28/19 06:14 5 mg Dose Administration 5 mg IV .STK-MED ONE Metoprolol Tartrate 5 mg 12/28/19 06:45 12/28/19 07:54 Lopressor Inj/Pf 5 Mg/5 Ml Sdv IV 12/28/19 06:46 Not Given NOW ONE Assessment & Plan - Diagnosis (1) Atrial fibrillation with RVR Is this a current diagnosis for this admission?: Yes Plan: Doing better after her Lopressor was increased to 50 mg every 6 hours. She has no evidence of heart failure on exam or by radiographic assessment. Recommendations: -Continue with current medical management. -May transition anticoagulation to Eliquis 5 mg p.o. twice daily. -We will keep her on telemetry at least 24 more hours to ensure that her heart rate remains at goal. -We will plan to see her in the office once discharged for further treatment of atrial fibrillation such as antiarrhythmics versus cardioversion versus antiarrhythmics plus cardioversion if her atrial fibrillation persist.. (2) Coronary artery disease Qualifiers: Coronary Disease-Associated Artery/Lesion type: [place] artery [place] vs. transplanted heart: [place] heart Associated angina: without angina Qualified Code(s): I25.10 - Atherosclerotic heart disease of [place] coronary artery without angina pectoris Is this a current diagnosis for this admission?: Yes Plan: The patient underwent stenting of the proximal right coronary artery in September 2001. She is currently free of ischemic symptoms however she does have lower extremity edema which she attributes to increased doses of Norvasc. She has remained free of ischemic and heart failure symptoms and without evidence of heart failure by exam or radiographic assessment. Recommendations: -Discontinue hydralazine. -Uptitrate lisinopril as indicated to keep systolic blood pressure to 130/80 or below. -Strict intake and output. -Minimize IV fluids. -Low sodium/low cholesterol diet. -Increase Lipitor to 80 mg daily. -We will continue to follow-up with you. (3) Hypertension Qualifiers: Hypertension type: essential hypertension Qualified Code(s): I10 - Essential (primary) hypertension Is this a current diagnosis for this admission?: Yes Plan: Her blood pressure is at goal. I will defer further management to the primary team.
[2019-12-29] MEDS: INSULIN LISPRO 100 UNIT/ML 3 ML VIAL SUBCUT SCH ×4 (09:08→22:09)
[2019-12-29] MEDS: ENOXAPARIN SODIUM INJ 80 MG/0.8 ML DISP.SYRIN SUBCUT SCH (09:13)
[2019-12-29] MEDS: INSULIN NPH (ISOPHANE), HUMAN 100 UNIT/ML 3 ML SUBCUT SCH ×2 (09:14→22:10)
[2019-12-29] MEDS: HYDROCHLOROTHIAZIDE 12.5 MG TABLET PO SCH (09:14)
[2019-12-29] MEDS: ASPIRIN 81 MG TABLET, ENT COATED PO SCH (09:15)
[2019-12-29] MEDS: PREDNISONE 20 MG TABLET PO SCH (09:15)
[2019-12-29] MEDS: FOLIC ACID 1 MG TABLET PO SCH (09:15)
[2019-12-29] MEDS: CHOLECALCIFEROL (D3) 1,000 UNIT (25 MCG) TABLET PO SCH (09:15)
[2019-12-29] MEDS: ZINC SULFATE 220 MG CAPSULE PO SCH (09:15)
[2019-12-29] MEDS: LISINOPRIL 10 MG TABLET PO SCH (09:15)
[2019-12-29] MEDS: ASCORBIC ACID 500 MG TABLET PO SCH ×2 (09:15→17:09)
[2019-12-29] MEDS: MULTIVITAMIN TABLET PO SCH (09:15)
[2019-12-29] MEDS: CITALOPRAM HYDROBROMIDE 20 MG TABLET PO SCH (09:16)
[2019-12-29] MEDS: AMLODIPINE BESYLATE 10 MG TABLET PO SCH (09:20)
[2019-12-29] MEDS ORDERED: LEVOTHYROXINE SODIUM 0.088 MG TABLET PO SCH (10:00)
[2019-12-29] MEDS: APIXABAN 5 MG TABLET PO SCH (17:09)
--- NOTE | 2019-12-29 19:05 | PDOC PROGRESS REPORT ---
Subjective Progress Note for:: 12/29/19 Subjective:: Patient was seen on morning rounds and again this afternoon. She is found resting in bed, comfortably, on room air. She states she "feels wonderful." She is very relieved to have nml Chest CT and reassuring [place] appreciation that we were diligent at diagnosing/treating potential COVID. "Its good to know the doctors and nurses care so much to get to the bottom of it!" She denies fever, chills, chest pain, palpitations, dyspnea, orthopnea, cough, dyspepsia, abdominal pain, nausea, vomiting. She has no other questions or concerns at this time. No concerns per nursing; improved HR control today. Reason For Visit: COPD EXACERBATION,CORONARY ARTERY DISEASE,HYPERTEN Physical Exam Vital Signs: Temp Pulse Resp BP Pulse Ox 98.6 F 89 18 133/68 H 98 12/29/19 15:09 12/29/19 15:09 12/29/19 15:09 12/29/19 15:09 12/29/19 15:09 Intake & Output 12/28/19 12/29/19 12/30/19 06:59 06:59 06:59 Intake Total 2000 520 225 Output Total 200 Balance 2000 320 225 Weight 74.2 kg 74.4 kg General appearance: PRESENT: no acute distress, cooperative, well-developed, well-nourished Head exam: PRESENT: atraumatic, normocephalic Eye exam: PRESENT: conjunctiva pink, EOMI, PERRLA. ABSENT: scleral icterus Mouth exam: PRESENT: moist, tongue midline Teeth exam: PRESENT: poor dentation Respiratory exam: PRESENT: clear to auscultation luz maria, symmetrical, unlabored. ABSENT: rales, rhonchi, wheezes Cardiovascular exam: PRESENT: irregular rhythm, +S1, +S2, tachycardia - HR 90- 112 (rest); ~120 w/ minimal activity. ABSENT: diastolic murmur, rubs, systolic murmur Vascular exam: PRESENT: normal capillary refill Extremities exam: PRESENT: full ROM. ABSENT: calf tenderness, clubbing, pedal edema Musculoskeletal exam: PRESENT: ambulatory Neurological exam: PRESENT: alert, awake, oriented to person, oriented to place, oriented to time, oriented to situation, CN II-XII grossly intact. ABSENT: motor sensory deficit Psychiatric exam: PRESENT: appropriate affect, normal mood. ABSENT: homicidal ideation, suicidal ideation Skin exam: PRESENT: dry, intact, warm. ABSENT: cyanosis, rash Results Laboratory Results: 12/28/19 05:47 12/29/19 05:32 12/29/19 12/29/19 03:30 05:32 Sodium 132.2 L Potassium 4.0 Chloride 98 Carbon Dioxide 27 Anion Gap 7 BUN 30 H Creatinine 0.96 Est GFR ( Amer) > 60 Glucose 95 Calcium 8.7 Urine Color YELLOW Urine Appearance CLEAR Urine pH 6.0 Ur Specific Mcdade 1.038 Urine Protein 100 H Urine Glucose (UA) 50 H Urine Ketones NEGATIVE Urine Blood NEGATIVE Urine Nitrite NEGATIVE Ur Leukocyte Esterase NEGATIVE Urine WBC (Auto) 1 Urine RBC (Auto) 1 Impressions: Chest/Abdomen CTA 12/24/19 18:00 IMPRESSION: Mild emphysema. Chest CT 12/28/19 00:00 IMPRESSION: No acute abnormality within the chest. Subacute fracture involving the left anterior fifth rib. 3.0 mm solid pulmonary nodule within the upper lobe. If patient is low risk for malignancy, no routine follow-up imaging is recommended; if patient is high risk for malignancy, a non-contrast Chest CT at 12 months is optional. If performed and the nodule is stable at 12 months, no further follow-up is recommended. These guidelines do not apply to immunocompromised patients and patients with cancer. Follow up in patients with significant comorbidities as clinically warranted. For lung cancer screening, adhere to Lung-RADS guidelines. Reference: Radiology. 2017; 284(1):228-43. Splenic varices with splenorenal shunt. TECHNICAL DOCUMENTATION: Quality ID # 436: Final reports with documentation of one or more dose reduction techniques (e.g., Automated exposure control, adjustment of the mA and/or kV according to patient size, use of iterative reconstruction technique) copyright 2010 [employer]- All Rights Reserved Chest X-Ray 12/28/19 00:00 IMPRESSION: No interval change in the chest. Assessment and Plan - Diagnosis (1) Atrial fibrillation with RVR Is this a current diagnosis for this admission?: Yes Plan: Improved rate control. Atrial fibrillation with RVR. Cardiology was consulted; discussed with Dr. De Anda. He advises to discontinue atenolol. Continue Toprol 50 mg every 6 hours. Start Eliquis. (2) COPD (chronic obstructive pulmonary disease) with chronic bronchitis Is this a current diagnosis for this admission?: Yes Plan: Stable and without exacerbation at this time. The patient reports COPD. She states that she has not had an exacerbation in a long time. She does have an albuterol rescue inhaler at home but has been not on any chronic daily inhaler therapy. She does not use oxygen at home. (3) Coronary artery disease Qualifiers: Coronary Disease-Associated Artery/Lesion type: [place] artery [place] vs. transplanted heart: [place] heart Associated angina: without angina Qualified Code(s): I25.10 - Atherosclerotic heart disease of [place] coronary artery without angina pectoris Is this a current diagnosis for this admission?: Yes Plan: The patient states that she had a stent placed approximately 10 years ago or more. She was following with cardiology but then decided to change practitioners. She states she would be seeing Dr. Frazier at [facility] to establish with new cardiology. Resume aspirin and statin therapy. Resume a home antihypertensive regiment of amlodipine, lisinopril/HCTZ, bisprolol, and hydralazine. Cardiac diet. (4) Depression Qualifiers: Depression Type: unspecified Qualified Code(s): F32.9 - Major depressive disorder, single episode, unspecified Is this a current diagnosis for this admission?: Yes Plan: Home dose Celexa. Monitor QTC while given concurrently with azithromycin. Vistaril as needed anxiety (5) Diabetes mellitus Qualifiers: Diabetes mellitus type: type 1 Diabetes mellitus complication status: without complication Qualified Code(s): E10.9 - Type 1 diabetes mellitus without complications Is this a current diagnosis for this admission?: Yes Plan: A1c 6.4%. Resume home dose NPH. Accu-Cheks before meals and at bedtime with Humalog per sliding scale coverage. Hypoglycemia protocol. Cardiac/consistent carb diet. (6) Elevated d-dimer Is this a current diagnosis for this admission?: Yes Plan: CTA chest negative for pulmonary embolus. Improving; d-dimer down to 1.47 Now on Eliquis (7) Elevated liver function tests Is this a current diagnosis for this admission?: Yes Plan: Resolved. She reports rare to occasional glasses of wine. No other indication for elevat ed transaminases. Transaminitis is 1 of the abnormalities seen in COVID. Continue to monitor. (8) Fever Qualifiers: Fever type: unspecified Qualified Code(s): R50.9 - Fever, unspecified Is this a current diagnosis for this admission?: Yes Plan: Resolved. Blood cultures (1/4 bottles) shows coag negative staph; contaminant. Antibiotics as below (9) Hypertension Qualifiers: Hypertension type: essential hypertension Qualified Code(s): I10 - Essential (primary) hypertension Is this a current diagnosis for this admission?: Yes Plan: Resume a home antihypertensive regiment of lisinopril/HCTZ, bisprolol, and hydralazine. Increased amlodipine to 10 mg daily. Cardiac diet. (10) Hyponatremia Is this a current diagnosis for this admission?: Yes Plan: Chronic per patient, however, labs from May 2019 show sodium 134.8; therefore, her hyponatremia today is significantly lower than what is presumed to be her baseline. Sodium trending overall stable; 125.3-> 122.5-> 125.1 Liberalize dietary sodium. Fluid restrict 1.2 L/daily Follow up chemistry. (11) Hypothyroidism, postsurgical Is this a current diagnosis for this admission?: Yes Plan: Continue home dose levothyroxine. (12) Suspected COVID-19 virus infection Is this a current diagnosis for this admission?: Yes Plan: Ruled Out Rapid and send out COVID-19 tests are negative. However, she has numerous laboratory results supportive of COVID-19 (elevated d- dimer, transaminases, CRP, LDH, ferritin) that can not be explained otherwise. CTA negative for pulmonary embolus and pneumonia. COPD exacerbation is not suspected (no wheezing on exam) and certainly would not be the cause of the above-mentioned laboratory changes. Chest U/S benign Chest CT w/ negative for acute findings; specifically no ground glass or infiltrates noted. D-dimer improved (1.47) CRP equivocal (132.7 Ferritin increased (581) LDH increased (289) Due to elevated d-dimer, she was placed on full dose Lovenox. Received 3 days of Rocephin Completed 5 day course of Azithromycin. Transitioned to p.o. prednisone; weaning Continue vitamin C, vitamin D, zinc, and melatonin supplementation. Encourage pulmonary toilet. Contact and droplet precautions. Discussed with Dr. Ly yesterday. Patient and family with, understandable, high level of frustration/anxiety regarding unclear dx. Dr. Malachi provided bedside eval w/ US. B lines noted; recommended follow up CT Chest to evaluate for ground glass changes. As both are negative, effectively r/o COVID. - Time Time Spent with patient: 35 or more minutes Medications reviewed and adjusted accordingly: Yes Anticipated Discharge Disposition: Home, Self Care Anticipated Discharge Timeframe: within 24 hours
[2019-12-29] MEDS: ATORVASTATIN CALCIUM 20 MG TABLET PO SCH (22:08)
[2019-12-29] MEDS: CALCIUM CARBONATE 600 MG/VITAMIN D3 400 UNIT TABLET PO SCH (22:09)
[2019-12-29] MEDS: MELATONIN 3 MG TABLET PO SCH (22:09)
[2019-12-30] MEDS: METOPROLOL TARTRATE 50 MG TABLET PO SCH (06:57)
[2019-12-30] MEDS: PANTOPRAZOLE SODIUM 40 MG TABLET.DR PO SCH ×2 (06:57→17:11)
[2019-12-30] MEDS: LEVOTHYROXINE SODIUM 0.088 MG TABLET PO SCH (07:00)
[2019-12-30] MEDS: INSULIN LISPRO 100 UNIT/ML 3 ML VIAL SUBCUT SCH ×4 (08:18→23:27)
--- NOTE | 2019-12-30 08:36 | PDOC PROGRESS REPORT ---
Subjective Progress Note for:: 12/30/19 Subjective:: ALONZO DAWKINS is a 64 year old female with a history of coronary artery disease status post PCI to the proximal RCA with a 4.0 mm x 18 mm Elite stent in September 2001, palpitations, PACs in the past, COPD, hyperlipidemia, hypertension, depression, diabetes mellitus and hyponatremia who was admitted to [facility] on 12/24/2019 with several weeks of increasing shortness of breath and cough as well as fevers and who is consulted to our service for rapid atrial fibrillation. The hospitalist service has been treating her for COVID-19 as she clinically is having all symptoms and signs of COVID infection despite negative testing. The patient had been responding appropriately to treatment for her pulmonary condition however began to have episodes of paroxysmal atrial fibri llation recently and, as of yesterday, had remained in rapid atrial fibrillation. She was begun on Lopressor 25 p.o. every 6 with some improvement in her pulse. This morning she is found in bed, resting comfortably although she complains of shortness of breath and racing heart. She feels hot to the touch. 12/30/2019: The patient feels 100% better this morning when compared to yesterday and has no cardiovascular complaints. She underwent CT scan of the chest as well as lung ultrasound yesterday all of which found no evidence of COVID infection. Her beta-elizabet was increased to 50 mg p.o. every 6 hours with a significant improvement in her heart rate at rest however with just moving in the bed and using the bathroom her heart rate becomes uncontrolled and up to 140 bpm although asymptomatic. Physical exam on 12/30/2019: GENERAL: Pleasant and conversational. Oriented x3 with normal mood. Not in acute distress however she is speaking in short sentences and appears to be short of breath. HEENT: Normocephalic, atraumatic. Pupils equal. Sclerae anicteric. Oropharynx moist. NECK: No JVD. No carotid bruits. LUNGS: Clear to auscultation bilaterally, decreased breath sounds bilaterally. Normal respiratory effort without the use of accessory muscles or intercostal retractions. CARDIOVASCULAR: Irregular rate and rhythm, normal S1 and S2 without murmurs, rubs, or gallops. PMI not displaced. ABDOMEN: No masses or tenderness to palpation. No bruit. No splenomegaly or hepatomegaly. No abdominal aorta bruit noted. EXTREMITIES: 1+ pitting edema bilaterally, no cyanosis, no clubbing. +2 pulses femoral and pedal pulses bilaterally. SKIN: No lesions or rashes. MUSCULOSKELETAL: No chest tenderness to palpation. NEUROLOGIC: Nonfocal. No gross sensory or motor deficits bilateral upper or lower extremities. Reason For Visit: COPD EXACERBATION,CORONARY ARTERY DISEASE,HYPERTEN Physical Exam Vital Signs: Temp Pulse Resp BP Pulse Ox 97.9 F 62 16 125/76 98 12/30/19 04:32 12/30/19 04:32 12/30/19 04:32 12/30/19 04:32 12/30/19 04:32 Intake & Output 12/28/19 12/29/19 12/30/19 06:59 06:59 06:59 Intake Total 2000 520 905 Output Total 200 Balance 2000 320 905 Weight 74.2 kg 74.4 kg Results Laboratory Results: 12/28/19 05:47 12/29/19 05:32 12/24/19 20:11 Blood Blood Culture - Final NO GROWTH IN 5 DAYS Impressions: Chest/Abdomen CTA 12/24/19 18:00 IMPRESSION: Mild emphysema. Chest CT 12/28/19 00:00 IMPRESSION: No acute abnormality within the chest. Subacute fracture involving the left anterior fifth rib. 3.0 mm solid pulmonary nodule within the upper lobe. If patient is low risk for malignancy, no routine follow-up imaging is recommended; if patient is high risk for malignancy, a non-contrast Chest CT at 12 months is optional. If performed and the nodule is stable at 12 months, no further follow-up is recommended. These guidelines do not apply to immunocompromised patients and patients with cancer. Follow up in patients with significant comorbidities as clinically warranted. For lung cancer screening, adhere to Lung-RADS guidelines. Reference: Radiology. 2017; 284(1):228-43. Splenic varices with splenorenal shunt. TECHNICAL DOCUMENTATION: Quality ID # [id number]: Final reports with documentation of one or more dose reduction techniques (e.g., Automated exposure control, adjustment of the mA and/or kV according to patient size, use of iterative reconstruction technique) copyright 2011 [employer]- All Rights Reserved Chest X-Ray 12/28/19 00:00 IMPRESSION: No interval change in the chest. 12/28/19 05:47 12/29/19 05:32 MCV 83 fl (80-97) 12/28/19 05:47 MCH 28.5 pg (27.0-33.4) 12/28/19 05:47 MCHC 34.5 g/dL (32.0-36.0) 12/28/19 05:47 RDW 15.0 % (11.5-14.0) H 12/28/19 05:47 Seg Neutrophils % 86.0 % (42-78) H 12/25/19 05:06 Chloride 98 mmol/L (98-107) 12/29/19 05:32 Carbon Dioxide 27 mmol/L (22-30) 12/29/19 05:32 Anion Gap 7 (5-19) 12/29/19 05:32 Est GFR ( Amer) > 60 (>60) 12/29/19 05:32 Est GFR (Non-Af Amer) Cancelled 12/24/19 15:01 Glucose 95 mg/dL (75-110) 12/29/19 05:32 Calcium 8.7 mg/dL (8.4-10.2) 12/29/19 05:32 Phosphorus 3.2 mg/dL (2.5-4.5) 12/25/19 05:06 Magnesium 1.5 mg/dL (1.6-2.3) L 12/25/19 05:06 Ferritin 581.00 ng/mL (11.1-264.0) H 12/26/19 05:14 Total Bilirubin 0.6 mg/dL (0.2-1.3) 12/24/19 16:25 AST 84 U/L (14-36) H 12/24/19 16:25 Alkaline Phosphatase 69 U/L (38-126) 12/24/19 16:25 C-Reactive Protein 132.7 mg/L (<10.0) H 12/26/19 05:14 Total Protein 7.9 g/dL (6.3-8.2) 12/24/19 16:25 Albumin 4.4 g/dL (3.5-5.0) 12/24/19 16:25 Triglycerides 105 mg/dL (<150) 12/25/19 05:06 Cholesterol 122.99 mg/dL (0-200) 12/25/19 05:06 LDL Cholesterol Direct 46 mg/dL (<100) 12/25/19 05:06 VLDL Cholesterol 21.0 mg/dL (10-31) 12/25/19 05:06 HDL Cholesterol 52 mg/dL (>40) 12/25/19 05:06 TSH 0.13 uIU/mL (0.47-4.68) L 12/25/19 05:06 Free T4 1.45 ng/dL (0.78-2.19) 12/25/19 05:06 Free T3 pg/mL 1.81 pg/mL (2.77-5.27) L 12/25/19 05:06 Urine Color YELLOW 12/29/19 03:30 Urine Appearance CLEAR 12/29/19 03:30 Urine pH 6.0 (5.0-9.0) 12/29/19 03:30 Ur Specific [place] 1.038 12/29/19 03:30 Urine Protein 100 mg/dL (NEGATIVE) H 12/29/19 03:30 Urine Glucose (UA) 50 mg/dL (NEGATIVE) H 12/29/19 03:30 Urine Ketones NEGATIVE mg/dL (NEGATIVE) 12/29/19 03:30 Urine Blood NEGATIVE (NEGATIVE) 12/29/19 03:30 Urine Nitrite NEGATIVE (NEGATIVE) 12/29/19 03:30 Ur Leukocyte Esterase NEGATIVE (NEGATIVE) 12/29/19 03:30 Urine WBC (Auto) 1 /HPF 12/29/19 03:30 Urine RBC (Auto) 1 /HPF 12/29/19 03:30 12/24/19 20:11 Blood Blood Culture - Final NO GROWTH IN 5 DAYS Current Medication List Generic Name Dose Route Start Last Admin Trade Name Aubrey PRN Reason Stop Dose Admin Acetaminophen 650 mg 12/24/19 19:19 Tylenol 325 Mg Tablet PO 01/23/20 19:18 Q4HP PRN FOR PAIN OR TEMP Al Hydrox/Mg Hydrox/Simethicone 15 ml 12/24/19 19:19 Maalox Plus Susp 30 Udcup PO 01/23/20 19:18 Q6HP PRN HEARTBURN Albuterol 2 puff 12/24/19 19:48 Proair Hfa Inhalation Aerosol 8.5 Gm Mdi IH 01/23/20 19:47 Q4HP PRN WHEEZING Amlodipine Besylate 10 mg 12/26/19 10:00 08/01/20 09:20 Norvasc 10 Mg Tablet PO 01/25/20 09:59 Not Given DAILY FERNY Apixaban 5 mg 12/29/19 18:00 12/29/19 17:09 Eliquis 5 Mg Tablet PO 01/28/20 17:59 5 mg BID FERNY Administration Ascorbic Acid 500 mg 12/25/19 10:00 12/29/19 17:09 Vitamin C 500 Mg Tablet PO 01/24/20 09:59 500 mg BID FERNY Administration Aspirin 81 mg 12/26/19 10:00 12/29/19 09:15 Ecotrin 81 Mg Ec Tablet PO 01/25/20 09:59 81 mg DAILY FERNY Administration Atorvastatin Calcium 80 mg 12/28/19 22:00 12/29/19 22:08 Lipitor 20 Mg Tablet PO 01/27/20 21:59 80 mg QHS FERNY Administration Calcium Carbonate 1 tab 12/25/19 22:00 12/29/19 22:09 Caltrate 600-Vit D3 400 Tablet PO 01/24/20 21:59 1 tab QHS FERNY Administration Cetirizine HCl 10 mg 12/25/19 20:25 Zyrtec 10 Mg Tablet PO 01/24/20 20:24 HSP PRN FOR ALLERGIES Cholecalciferol 2,000 unit 12/25/19 10:00 12/29/19 09:15 Vitamin D3 1000 Unit Tablet PO 01/24/20 09:59 2,000 unit DAILY FERNY Administration Citalopram Hydrobromide 10 mg 12/26/19 10:00 12/29/19 09:16 Celexa 20 Mg Tablet PO 01/25/20 09:59 10 mg DAILY FERNY Administration Dextrose 12.5 gm 12/24/19 19:39 Dextrose Inj 50% Syringe (25 Gm/50 Ml) IV 01/23/20 19:38 PRN PRN FOR BG 50-69 IN ALERT PATIENT Protocol Dextrose 25 gm 12/24/19 19:39 Dextrose Inj 50% Syringe (25 Gm/50 Ml) IV 01/23/20 19:38 PRN PRN PER PROTOCOL Protocol Folic Acid 1 mg 12/26/19 10:00 12/29/19 09:15 Folvite 1 Mg Tablet PO 01/25/20 09:59 1 mg DAILY FERNY Administration Glucagon 1 mg 12/24/19 19:39 Glucagen Inj 1 Mg Vial IM 08/26/20 19:38 PRN PRN Evaluate for BG < 70 Protocol Glucose 15 gm 12/24/19 19:39 Glutose 40% Gel 15 Gm Tube PO 01/23/20 19:38 PRN PRN FOR BG 50-69 IN ALERT PATIENT Protocol Glucose 30 gm 12/24/19 19:39 Glutose 40% Gel 15 Gm Tube PO 01/23/20 19:38 PRN PRN FOR BG < 50 IN ALERT PATIENT Protocol Hydroxyzine Pamoate 25 mg 12/26/19 16:16 Vistaril 25 Mg Capsule PO 01/25/20 16:15 Q8HP PRN ANXIETY Insulin Human Lispro 0 - 12 unit 12/25/19 16:00 12/29/19 22:09 Humalog Insulin 100 Unit/1 Ml 3 Ml Vial SUBCUT 01/24/20 15:59 8 unit ACHS FERNY Administration Protocol Insulin Human NPH 25 unit 12/26/19 09:00 12/29/19 09:14 Humulin N (Nph) Insulin 100 Unit/1 Ml 3 Ml SUBCUT 01/25/20 08:59 25 unit QAM FERNY Administration Insulin Human NPH 20 unit 12/26/19 22:00 12/29/19 22:10 Humulin N (Nph) Insulin 100 Unit/1 Ml 3 Ml SUBCUT 01/25/20 21:59 20 unit QHS FERNY Administration Levothyroxine Sodium 0.075 mg 12/26/19 08:30 12/28/19 05:45 Synthroid 0.075 Mg Tablet PO 01/25/20 08:29 0.075 mg [id number]@0600 FERNY Administration Levothyroxine Sodium 0.088 mg 12/29/19 06:00 12/29/19 05:45 Synthroid 0.088 Mg Tablet PO 01/28/20 05:59 0.088 mg SuSa@0600 FERNY Administration Lisinopril 10 mg 12/29/19 10:00 12/29/19 09:15 Prinivil 10 Mg Tablet PO 01/28/20 09:59 10 mg DAILY FERNY Administration Melatonin 6 mg 12/24/19 22:00 12/29/19 22:09 Melatonin 3 Mg Tablet PO 01/23/20 21:59 6 mg QHS FERNY Administration Metoprolol Tartrate 50 mg 12/28/19 18:00 12/30/19 06:57 Lopressor 50 Mg Tablet PO 01/27/20 17:59 50 mg Q6 FERNY Administration Multivitamins 1 tab 12/26/19 10:00 12/29/19 09:15 Tab-A-Mirella (Multiple Vitamin) Tablet PO 01/25/20 09:59 1 tab DAILY FERNY Administration Pantoprazole Sodium 40 mg 12/26/19 17:00 12/30/19 06:[address] Tablet PO 01/25/20 16:59 40 mg BID@0600,1700 FERNY Administration Prednisone 40 mg 12/30/19 10:00 Deltasone 20 Mg Tablet PO 01/29/20 09:59 DAILY FERNY Promethazine HCl 12.5 mg 12/24/19 19:19 12/28/19 05:55 Phenergan Inj 25 Mg/1 Ml Vial IV 01/23/20 19:18 12.5 mg Q4HP PRN Administration FOR NAUSEA/VOMITING Sodium Chloride 2.5 ml 12/24/19 22:00 12/30/19 06:57 Saline Flush 2.5 Ml Monoject Prefil Syrin IV 01/23/20 21:59 Not Given Q8 [facility] Zinc Sulfate 220 mg 12/25/19 10:00 12/29/19 09:15 Zinc-220 Capsule PO 01/24/20 09:59 220 mg DAILY FERNY Administration Zolpidem Tartrate 5 mg 12/26/19 16:16 Ambien 5 Mg Tablet PO 01/02/20 16:15 HSP PRN SLEEP OR INSOMNIA Discontinued Medications Generic Name Dose Route Start Last Admin Trade Name Freq PRN Reason Stop Dose Admin Albuterol 2.5 mg 12/24/19 19:19 Ventolin 0.083% Neb 2.5 Mg/3 Ml Ampul NEB 01/23/20 19:18 RTQ4HP PRN SHORTNESS OF BREATH Amlodipine Besylate 5 mg 12/26/19 10:00 Norvasc 5 Mg Tablet PO 01/25/20 09:59 DAILY FERNY Aspirin 81 mg 12/24/19 22:00 12/24/19 22:16 Ecotrin 81 Mg Ec Tablet PO 12/24/19 23:00 81 mg QHS FERNY Administration Atenolol 100 mg 12/26/19 10:00 12/27/19 09:42 Tenormin 50 Mg Tablet PO 01/25/20 09:59 100 mg DAILY FERNY Administration Atorvastatin Calcium 40 mg 12/24/19 22:00 12/24/19 22:28 Lipitor 40 Mg Tablet PO 12/24/19 23:00 40 mg QHS FERNY Administration Atorvastatin Calcium 20 mg 12/25/19 22:00 12/27/19 22:12 Lipitor 20 Mg Tablet PO 01/24/20 21:59 20 mg QHS FERNY Administration Azithromycin 500 mg 12/24/19 18:01 12/24/19 18:35 Zithromax 250 Mg Tablet PO 12/24/19 18:02 500 mg NOW ONE Administration Azithromycin 250 mg 12/25/19 18:00 12/27/19 17:33 Zithromax 250 Mg Tablet PO 01/01/20 17:59 250 mg QPM FERNY Administration Dexamethasone Sodium Phosphate 2 mg 12/24/19 22:00 12/26/19 13:35 Decadron Inj 4 Mg/Ml Vial IV 01/23/20 21:59 2 mg Q8 FERNY Administration Dexamethasone Sodium Phosphate 2 mg 12/26/19 22:00 12/27/19 09:44 Decadron Inj 4 Mg/Ml Vial IV 01/25/20 21:59 2 mg Q12 FERNY Administration Diltiazem HCl 20 mg 12/25/19 11:21 12/25/19 11:44 Cardizem Inj 25 Mg/5 Ml Vial IV 12/25/19 11:22 20 mg NOW ONE Administration Diltiazem HCl 20 mg 12/27/19 11:30 12/27/19 12:08 Cardizem Inj 25 Mg/5 Ml Vial IV 12/27/19 11:31 Not Given NOW ONE Diltiazem HCl 25 mg 12/28/19 07:00 12/28/19 06:59 Cardizem Inj 25 Mg/5 Ml Vial IV 12/28/19 07:01 25 mg NOW ONE Administration Diltiazem HCl Confirm 12/28/19 06:53 12/28/19 07:54 Cardizem Inj 25 Mg/5 Ml Vial Administered 12/28/19 06:54 Not Given Dose 25 mg .ROUTE .STK-MED ONE Enoxaparin Sodium 80 mg 12/24/19 22:00 12/29/19 09:13 Lovenox Inj 80 Mg/0.8 Ml Disp.Syrin SUBCUT 01/23/20 21:59 80 mg Q12 FERNY Administration Hydralazine HCl 25 mg 12/26/19 10:00 12/28/19 10:00 Apresoline 25 Mg Tablet PO 01/25/20 09:59 Not Given Q12 FERNY Hydrochlorothiazide 12.5 mg 12/26/19 10:00 12/29/19 09:14 Hydrodiuril 12.5 Mg Tablet PO 01/25/20 09:59 12.5 mg DAILY FERNY Administration Sodium Chloride 1,000 mls @ 0 mls/hr 12/24/19 18:01 12/24/19 19:36 Nacl 0.9% 1000 Ml Iv Soln IV 12/24/19 18:02 Infused BOLUS ONE Infusion Wide Open Ceftriaxone Sodium/Dextrose 2 gm in 50 mls @ 100 mls/hr 12/24/19 18:01 12/24/19 19:07 Rocephin Rtu 2 Gm/D5w 50 Ml Premix Bag IV 12/24/19 18:30 Infused NOW ONE Infusion Ceftriaxone Sodium/Dextrose 1 gm in 50 mls @ 100 mls/hr 12/25/19 10:00 12/26/19 10:49 Rocephin Rtu 1 Gm/D5w 50 Ml Premix IV 01/01/20 09:59 Infused DAILY FERNY Infusion Insulin Human Lispro 16 unit 12/25/19 12:30 12/25/19 12:24 Humalog Insulin 100 Unit/1 Ml 3 Ml Vial SUBCUT 12/25/19 12:31 16 unit NOW ONE Administration Insulin Human Lispro Confirm 12/25/19 22:21 12/25/19 22:27 Humalog Insulin 100 Unit/1 Ml 3 Ml Vial Administered 12/25/19 22:22 Not Given Dose 1 unit .ROUTE .STK-MED ONE Insulin Human Lispro 15 unit 12/25/19 22:30 12/25/19 22:38 Humalog Insulin 100 Unit/1 Ml 3 Ml Vial SUBCUT 12/25/19 22:31 15 unit NOW ONE Administration Insulin Human Lispro 20 unit 12/26/19 13:30 12/26/19 13:34 Humalog Insulin 100 Unit/1 Ml 3 Ml Vial SUBCUT 12/26/19 13:31 20 unit NOW ONE Administration Insulin Human Lispro 20 unit 12/26/19 14:00 12/26/19 13:41 Humalog Insulin 100 Unit/1 Ml 3 Ml Vial SUBCUT 12/26/19 14:01 20 unit NOW ONE Administration Insulin Human NPH 20 unit 12/26/19 18:00 Humulin N (Nph) Insulin 100 Unit/1 Ml 3 Ml SUBCUT 01/25/20 17:59 QPM [facility] Insulin Human Regular 0 - 12 unit 12/24/19 22:00 12/25/19 11:37 Humulin R (Pyxis) Insulin 100 Unit/Ml 3ml SUBCUT 01/23/20 21:59 Not Given [facility] Protocol Insulin Human Regular 4 unit 12/25/19 10:30 12/25/19 09:45 Humulin R (Pyxis) Insulin 100 Unit/Ml 3ml SUBCUT 12/25/19 10:31 4 unit NOW ONE Administration Levothyroxine Sodium 0.075 mg 12/26/19 10:00 Synthroid 0.075 Mg Tablet PO 01/25/20 09:59 [email or web address] [facility] Levothyroxine Sodium 0.088 mg 12/29/19 10:00 Synthroid 0.088 Mg Tablet PO 01/28/20 09:59 [email or web address] [facility] Lisinopril 10 mg 12/24/19 22:00 12/24/19 22:31 Prinivil 10 Mg Tablet PO 12/24/19 23:00 10 mg DAILY [facility] Administration Lisinopril 20 mg 12/26/19 10:00 12/28/19 10:01 Prinivil 10 Mg Tablet PO 01/25/20 09:59 Not Given DAILY [facility] Metoprolol Tartrate 25 mg 12/27/19 12:00 12/28/19 17:03 Lopressor 25 Mg Tablet PO 01/26/20 11:59 25 mg Q6 [facility] Administration Metoprolol Tartrate Confirm 12/28/19 06:13 12/28/19 06:18 Lopressor Inj/Pf 5 Mg/5 Ml Sdv Administered 12/28/19 06:14 5 mg Dose Administration 5 mg IV .STK-MED ONE Metoprolol Tartrate 5 mg 12/28/19 06:45 12/28/19 07:54 Lopressor Inj/Pf 5 Mg/5 Ml Sdv IV 12/28/19 06:46 Not Given NOW ONE Prednisone 60 mg 12/28/19 10:00 12/29/19 09:15 Deltasone 20 Mg Tablet PO 01/27/20 09:59 60 mg DAILY FERNY Administration Assessment & Plan - Diagnosis (1) Atrial fibrillation with RVR Is this a current diagnosis for this admission?: Yes Plan: Doing better after her Lopressor maximized however her pulse continues to be uncontrolled with just mild physical activities. I took the liberty of changing her beta elizabet to metoprolol tartrate 100 mg bid from toprol 100mg bid. At this point we will screen the patient for antiarrhythmic therapy and possible EL-guided CV. Recommendations: -Continue with current medical management for now. -Continue with Eliquis 5 mg p.o. twice daily. -I will discuss the case with EP today. -Further recommendations pending discussion of case with EP today. (2) Coronary artery disease Qualifiers: Coronary Disease-Associated Artery/Lesion type: [place] artery [place] vs. transplanted heart: [place] heart Associated angina: without angina Qualified Code(s): I25.10 - Atherosclerotic heart disease of [place] coronary artery without angina pectoris Is this a current diagnosis for this admission?: Yes Plan: The patient underwent stenting of the proximal right coronary artery in September 2001. She is currently free of ischemic symptoms however she does have lower extremity edema which she attributes to increased doses of Norvasc. She has remained free of ischemic and heart failure symptoms and without evidence of heart failure by exam or radiographic assessment. Recommendations: -Discontinue hydralazine. -Uptitrate lisinopril as indicated to keep systolic blood pressure to 130/80 or below. -Strict intake and output. -Minimize IV fluids. -Low sodium/low cholesterol diet. -Increase Lipitor to 80 mg daily. -We will continue to follow-up with you. (3) Hypertension Qualifiers: Hypertension type: essential hypertension Qualified Code(s): I10 - Essential (primary) hypertension Is this a current diagnosis for this admission?: Yes Plan: Her blood pressure is at goal. I will defer further management to the primary team.
[2019-12-30] MEDS: INSULIN NPH (ISOPHANE), HUMAN 100 UNIT/ML 3 ML SUBCUT SCH ×2 (09:45→23:27)
[2019-12-30] MEDS: PREDNISONE 20 MG TABLET PO SCH (09:46)
[2019-12-30] MEDS: MULTIVITAMIN TABLET PO SCH (09:46)
[2019-12-30] MEDS: LISINOPRIL 10 MG TABLET PO SCH (09:46)
[2019-12-30] MEDS: CITALOPRAM HYDROBROMIDE 20 MG TABLET PO SCH (09:46)
[2019-12-30] MEDS: CHOLECALCIFEROL (D3) 1,000 UNIT (25 MCG) TABLET PO SCH (09:46)
[2019-12-30] MEDS: ASCORBIC ACID 500 MG TABLET PO SCH ×2 (09:47→17:12)
[2019-12-30] MEDS: METOPROLOL TARTRATE 100 MG TABLET PO SCH ×2 (09:47→23:26)
[2019-12-30] MEDS: APIXABAN 5 MG TABLET PO SCH ×2 (09:47→17:12)
[2019-12-30] MEDS: ZINC SULFATE 220 MG CAPSULE PO SCH (09:47)
[2019-12-30] MEDS: ASPIRIN 81 MG TABLET, ENT COATED PO SCH (09:47)
[2019-12-30] MEDS: FOLIC ACID 1 MG TABLET PO SCH (09:47)
[2019-12-30] MEDS ORDERED: METOPROLOL SUCCINATE 50 MG TAB.SR.24H PO SCH (10:00)
[2019-12-30] MEDS: AMLODIPINE BESYLATE 10 MG TABLET PO SCH (10:59)
--- NOTE | 2019-12-30 12:07 | Progress Note ---
Provider Note Provider Note: I discussed the patient with Dr. Michelle Vásquez, rug repairer at [facility]. She agrees with me that the next best option to control the patients a-fib will be EL-guided CV therefore I spoke with Dr. Marcus Costello who agreed to perform the procedure tomorrow. Please keep patient NPO after midnight except for medications.
--- NOTE | 2019-12-30 15:17 | PDOC PROGRESS REPORT ---
Subjective Progress Note for:: 12/30/19 Subjective:: Patient was seen on morning rounds and again this afternoon. She is found resting in bed, comfortably, on room air. Feels well today. She does have occasional palpitations; most noted with activity (heart rate 120s 140s with minimal activity); but without chest pain or dyspnea. She further denies fever, chills, chest pain, dyspnea, orthopnea, cough, dyspepsia, abdominal pain, nausea, vomiting. Discussed planned EL and cardioversion tomorrow; all questions answered. She has no other questions or concerns at this time. No concerns per nursing. Reason For Visit: COPD EXACERBATION,CORONARY ARTERY DISEASE,HYPERTEN Physical Exam Vital Signs: Temp Pulse Resp BP Pulse Ox 98.1 F 78 19 124/70 100 12/30/19 11:28 12/30/19 11:28 12/30/19 11:28 12/30/19 11:28 12/30/19 11:28 Intake & Output 12/29/19 12/30/19 12/31/19 06:59 06:59 06:59 Intake Total 520 905 480 Output Total 200 Balance 320 905 480 Weight 74.4 kg 74.5 kg General appearance: PRESENT: no acute distress, cooperative, well-developed, well-nourished Head exam: PRESENT: atraumatic, normocephalic Eye exam: PRESENT: conjunctiva pink, EOMI, PERRLA. ABSENT: scleral icterus Mouth exam: PRESENT: moist, tongue midline Respiratory exam: PRESENT: clear to auscultation luz maria, symmetrical, unlabored. ABSENT: rales, rhonchi, wheezes Cardiovascular exam: PRESENT: irregular rhythm, tachycardia - HR 90-112 (rest); 120-140 (minimal activity). ABSENT: diastolic murmur, rubs, systolic murmur Pulses: PRESENT: normal dorsalis pedis pul Vascular exam: PRESENT: normal capillary refill Rectal exam: PRESENT: deferred Extremities exam: PRESENT: full ROM. ABSENT: calf tenderness, clubbing, pedal edema Musculoskeletal exam: PRESENT: ambulatory Neurological exam: PRESENT: alert, awake, oriented to person, oriented to place, oriented to time, oriented to situation, CN II-XII grossly intact. ABSENT: motor sensory deficit Psychiatric exam: PRESENT: appropriate affect, normal mood. ABSENT: homicidal ideation, suicidal ideation Skin exam: PRESENT: dry, intact, warm. ABSENT: cyanosis, rash Results Laboratory Results: 12/28/19 05:47 12/29/19 05:32 12/24/19 20:11 Blood Blood Culture - Final NO GROWTH IN 5 DAYS Impressions: Chest/Abdomen CTA 12/24/19 18:00 IMPRESSION: Mild emphysema. Chest CT 12/28/19 00:00 IMPRESSION: No acute abnormality within the chest. Subacute fracture involving the left anterior fifth rib. 3.0 mm solid pulmonary nodule within the upper lobe. If patient is low risk for malignancy, no routine follow-up imaging is recommended; if patient is high risk for malignancy, a non-contrast Chest CT at 12 months is optional. If performed and the nodule is stable at 12 months, no further follow-up is recommended. These guidelines do not apply to immunocompromised patients and patients with cancer. Follow up in patients with significant comorbidities as clinically warranted. For lung cancer screening, adhere to Lung-RADS guidelines. Reference: Radiology. 2017; 284(1):228-43. Splenic varices with splenorenal shunt. TECHNICAL DOCUMENTATION: Quality ID # 436: Final reports with documentation of one or more dose reduction techniques (e.g., Automated exposure control, adjustment of the mA and/or kV according to patient size, use of iterative reconstruction technique) copyright 2011 [employer]- All Rights Reserved Chest X-Ray 12/28/19 00:00 IMPRESSION: No interval change in the chest. Assessment and Plan - Diagnosis (1) Atrial fibrillation with RVR Is this a current diagnosis for this admission?: Yes Plan: Improved rate control; not at goal. Atrial fibrillation with RVR. Cardiology was consulted; discussed with Dr. De Anda. He advises to discontinue atenolol. Continue metoprolol 100 mg every 12 hours. Continue Eliquis. NPO after midnight. Planned EL/Cardioversion by Dr. Costello tomorrow (2) COPD (chronic obstructive pulmonary disease) with chronic bronchitis Is this a current diagnosis for this admission?: Yes Plan: Stable and without exacerbation at this time. The patient reports COPD. She states that she has not had an exacerbation in a long time. She does have an albuterol rescue inhaler at home but has been not on any chronic daily inhaler therapy. She does not use oxygen at home. (3) Coronary artery disease Qualifiers: Coronary Disease-Associated Artery/Lesion type: [place] artery [place] vs. transplanted heart: [place] heart Associated angina: without angina Qualified Code(s): I25.10 - Atherosclerotic heart disease of [place] coronary artery without angina pectoris Is this a current diagnosis for this admission?: Yes Plan: The patient states that she had a stent placed approximately 10 years ago or more. She was following with cardiology but then decided to change practitioners. Continue aspirin and statin therapy. Antihypertensive as above. Cardiac diet. (4) Depression Qualifiers: Depression Type: unspecified Qualified Code(s): F32.9 - Major depressive disorder, single episode, unspecified Is this a current diagnosis for this admission?: Yes Plan: Home dose Celexa. Monitor QTC while given concurrently with azithromycin. Vistaril as needed anxiety (5) Diabetes mellitus Qualifiers: Diabetes mellitus type: type 1 Diabetes mellitus complication status: without complication Qualified Code(s): E10.9 - Type 1 diabetes mellitus without complications Is this a current diagnosis for this admission?: Yes Plan: Improved glucose control with weaning of steroids. A1c 6.4%. Resume home dose NPH. Accu-Cheks before meals and at bedtime with Humalog per sliding scale coverage. Hypoglycemia protocol. Cardiac/consistent carb diet. (6) Elevated d-dimer Is this a current diagnosis for this admission?: Yes Plan: CTA chest negative for pulmonary embolus. Improving; d-dimer down to 1.47 Now on Eliquis (7) Elevated liver function tests Is this a current diagnosis for this admission?: Yes Plan: Resolved. She reports rare to occasional glasses of wine. No other indication for eleva ryan transaminases. Transaminitis is 1 of the abnormalities seen in COVID. Continue to monitor. (8) Fever Qualifiers: Fever type: unspecified Qualified Code(s): R50.9 - Fever, unspecified Is this a current diagnosis for this admission?: Yes Plan: Resolved. Blood cultures (1/4 bottles) shows coag negative staph; contaminant. Antibiotics as below (9) Hypertension Qualifiers: Hypertension type: essential hypertension Qualified Code(s): I10 - Essential (primary) hypertension Is this a current diagnosis for this admission?: Yes Plan: Well-controlled at present. Currently on metoprolol 100 mg every 12 and lisinopril 10 mg daily. Cardiac diet. (10) Hyponatremia Is this a current diagnosis for this admission?: Yes Plan: Chronic per patient, however, labs from May 2019 show sodium 134.8; therefore, her hyponatremia today is significantly lower than what is presumed to be her baseline. Sodium trending overall stable; 125.3-> 122.5-> 125.1 Liberalize dietary sodium. Fluid restrict 1.2 L/daily Follow up chemistry. (11) Hypothyroidism, postsurgical Is this a current diagnosis for this admission?: Yes Plan: Continue home dose levothyroxine. (12) Suspected COVID-19 virus infection Is this a current diagnosis for this admission?: Yes Plan: Ruled Out Rapid and send out COVID-19 tests are negative. However, she has numerous laboratory results supportive of COVID-19 (elevated d- dimer, transaminases, CRP, LDH, ferritin) that can not be explained otherwise. CTA negative for pulmonary embolus and pneumonia. COPD exacerbation is not suspected (no wheezing on exam) and certainly would not be the cause of the above-mentioned laboratory changes. Chest U/S benign Chest CT w/ negative for acute findings; specifically no ground glass or infiltrates noted. D-dimer improved (1.47) CRP equivocal (132.7 Ferritin increased (581) LDH increased (289) Due to elevated d-dimer, she was placed on full dose Lovenox. Received 3 days of Rocephin Completed 5 day course of Azithromycin. Transitioned to p.o. prednisone; weaning Continue vitamin C, vitamin D, zinc, and melatonin supplementation. Encourage pulmonary toilet. Contact and droplet precautions. Patient and family with, understandable, high level of frustration/anxiety regarding unclear dx. Dr. Ly provided bedside eval w/ US. B lines noted; recommended follow up CT Chest to evaluate for ground glass changes. As both are negative, effectively r/o COVID. - Time Time Spent with patient: 35 or more minutes Medications reviewed and adjusted accordingly: Yes Anticipated Discharge Disposition: Home, Self Care Anticipated Discharge Timeframe: within 72 hours - pending successful cardioversion
[2019-12-30] MEDS ORDERED: METOPROLOL TARTRATE PF/INJ 5 MG/5 ML SDV IV PRN (18:26)
[2019-12-30] MEDS: CALCIUM CARBONATE 600 MG/VITAMIN D3 400 UNIT TABLET PO SCH (23:26)
[2019-12-30] MEDS: MELATONIN 3 MG TABLET PO SCH (23:26)
[2019-12-30] MEDS: ATORVASTATIN CALCIUM 20 MG TABLET PO SCH (23:26)
[2019-12-31] MEDS: LEVOTHYROXINE SODIUM 0.075 MG TABLET PO SCH (05:38)
[2019-12-31] MEDS: PANTOPRAZOLE SODIUM 40 MG TABLET.DR PO SCH ×2 (05:39→17:06)
[2019-12-31 05:51] LABS: HEMATOCRIT 29.7 % (36.0-47.0); HEMOGLOBIN 10.1 g/dL (12.0-15.5); MEAN CORPUSCULAR HEMOGLOBIN 28.2 pg (27.0-33.4); MEAN CORPUSCULAR VOLUME 83 fl (80-97); PLATELET COUNT 229 10^3/uL (150-450); RED BLOOD COUNT 3.59 10^6/uL (3.72-5.28); RED CELL DISTRIBUTION WIDTH 15.3 % (11.5-14.0); WHITE BLOOD COUNT 10.2 10^3/uL (4.0-10.5)
[2019-12-31 06:14] LABS: ANION GAP 5 (5-19); BLOOD UREA NITROGEN 21 mg/dL (7-20); CALCIUM 8.9 mg/dL (8.4-10.2); CARBON DIOXIDE 29 mmol/L (22-30); CHLORIDE 99 mmol/L (98-107); POTASSIUM 3.8 mmol/L (3.6-5.0)
[2019-12-31 06:18] LABS: GLUCOSE 55 mg/dL (75-110)
[2019-12-31] MEDS: INSULIN LISPRO 100 UNIT/ML 3 ML VIAL SUBCUT SCH ×4 (07:28→21:57)
[2019-12-31] MEDS: INSULIN NPH (ISOPHANE), HUMAN 100 UNIT/ML 3 ML SUBCUT SCH ×2 (07:39→21:58)
--- NOTE | 2019-12-31 07:40 | PDOC PROGRESS REPORT ---
Subjective Progress Note for:: 12/31/19 Subjective:: ALONZO DAWKINS is a 64 year old female with a history of coronary artery disease status post PCI to the proximal RCA with a 4.0 mm x 18 mm Elite stent in September 2001, palpitations, PACs in the past, COPD, hyperlipidemia, hypertension, depression, diabetes mellitus and hyponatremia who was admitted to [facility] on 12/24/2019 with several weeks of increasing shortness of breath and cough as well as fevers and who is consulted to our service for rapid atrial fibrillation. The hospitalist service has been treating her for COVID-19 as she clinically is having all symptoms and signs of COVID infection despite negative testing. The patient had been responding appropriately to treatment for her pulmonary condition however began to have episodes of paroxysmal atrial fibri llation recently and, as of yesterday, had remained in rapid atrial fibrillation. She was begun on Lopressor 25 p.o. every 6 with some improvement in her pulse. This morning she is found in bed, resting comfortably although she complains of shortness of breath and racing heart. She feels hot to the touch. 12/31/2019: The patient had an eventful night and remains asymptomatic from the cardiovas cular standpoint. Unfortunately her telemetry continues to show rapid atrial fibrillation reason why she had been set up for EL guided cardioversion today. Physical exam on 12/31/2019: GENERAL: Pleasant and conversational. Oriented x3 with normal mood. Not in acute distress however she is speaking in short sentences and appears to be short of breath. HEENT: Normocephalic, atraumatic. Pupils equal. Sclerae anicteric. Oropharynx moist. NECK: No JVD. No carotid bruits. LUNGS: Clear to auscultation bilaterally, decreased breath sounds bilaterally. Normal respiratory effort without the use of accessory muscles or intercostal retractions. CARDIOVASCULAR: Irregular rate and rhythm, normal S1 and S2 without murmurs, rubs, or gallops. PMI not displaced. ABDOMEN: No masses or tenderness to palpation. No bruit. No splenomegaly or hepatomegaly. No abdominal aorta bruit noted. EXTREMITIES: 1+ pitting edema bilaterally, no cyanosis, no clubbing. +2 pulses femoral and pedal pulses bilaterally. SKIN: No lesions or rashes. MUSCULOSKELETAL: No chest tenderness to palpation. NEUROLOGIC: Nonfocal. No gross sensory or motor deficits bilateral upper or lower extremities. Reason For Visit: COPD EXACERBATION,CORONARY ARTERY DISEASE,HYPERTEN Physical Exam Vital Signs: Temp Pulse Resp BP Pulse Ox 98.9 F 125 H 20 132/74 H 99 12/31/19 04:00 12/31/19 07:00 12/31/19 04:00 12/31/19 04:00 12/31/19 04:00 Intake & Output 12/30/19 12/31/19 01/01/20 06:59 06:59 06:59 Intake Total 905 1440 Balance 905 1440 Weight 74.5 kg 75.1 kg Results Laboratory Results: 12/31/19 05:09 12/31/19 05:09 12/31/19 12/31/19 05:09 05:09 WBC 10.2 RBC 3.59 L Hgb 10.1 L Hct 29.7 L MCV 83 MCH 28.2 MCHC 34.0 RDW 15.3 H Plt Count 229 Sodium 132.7 L Potassium 3.8 Chloride 99 Carbon Dioxide 29 Anion Gap 5 BUN 21 H Creatinine 0.81 Est GFR ( Amer) > 60 Glucose 55 L Calcium 8.9 Impressions: Chest/Abdomen CTA 12/24/19 18:00 IMPRESSION: Mild emphysema. Chest CT 12/28/19 00:00 IMPRESSION: No acute abnormality within the chest. Subacute fracture involving the left anterior fifth rib. 3.0 mm solid pulmonary nodule within the upper lobe. If patient is low risk for malignancy, no routine follow-up imaging is recommended; if patient is high risk for malignancy, a non-contrast Chest CT at 12 months is optional. If performed and the nodule is stable at 12 months, no further follow-up is recommended. These guidelines do not apply to immunocompromised patients and patients with cancer. Follow up in patients with significant comorbidities as clinically warranted. For lung cancer screening, adhere to Lung-RADS guidelines. Reference: Radiology. 2017; 284(1):228-43. Splenic varices with splenorenal shunt. TECHNICAL DOCUMENTATION: Quality ID # [id number]: Final reports with documentation of one or more dose reduction techniques (e.g., Automated exposure control, adjustment of the mA and/or kV according to patient size, use of iterative reconstruction technique) copyright 2011 [employer]- All Rights Reserved Chest X-Ray 12/28/19 00:00 IMPRESSION: No interval change in the chest. 08/03/20 05:09 12/31/19 05:09 MCV 83 fl (80-97) 12/31/19 05:09 MCH 28.2 pg (27.0-33.4) 12/31/19 05:09 MCHC 34.0 g/dL (32.0-36.0) 12/31/19 05:09 RDW 15.3 % (11.5-14.0) H 12/31/19 05:09 Seg Neutrophils % 86.0 % (42-78) H 12/25/19 05:06 Chloride 99 mmol/L (98-107) 12/31/19 05:09 Carbon Dioxide 29 mmol/L (22-30) 12/31/19 05:09 Anion Gap 5 (5-19) 12/31/19 05:09 Est GFR ( Amer) > 60 (>60) 12/31/19 05:09 Est GFR (Non-Af Amer) Cancelled 12/24/19 15:01 Glucose 55 mg/dL (75-110) L 12/31/19 05:09 Calcium 8.9 mg/dL (8.4-10.2) 12/31/19 05:09 Phosphorus 3.2 mg/dL (2.5-4.5) 12/25/19 05:06 Magnesium 1.5 mg/dL (1.6-2.3) L 12/25/19 05:06 Ferritin 581.00 ng/mL (11.1-264.0) H 12/26/19 05:14 Total Bilirubin 0.6 mg/dL (0.2-1.3) 12/24/19 16:25 AST 84 U/L (14-36) H 12/24/19 16:25 Alkaline Phosphatase 69 U/L (38-126) 12/24/19 16:25 C-Reactive Protein 132.7 mg/L (<10.0) H 12/26/19 05:14 Total Protein 7.9 g/dL (6.3-8.2) 12/24/19 16:25 Albumin 4.4 g/dL (3.5-5.0) 12/24/19 16:25 Triglycerides 105 mg/dL (<150) 12/25/19 05:06 Cholesterol 122.99 mg/dL (0-200) 12/25/19 05:06 LDL Cholesterol Direct 46 mg/dL (<100) 12/25/19 05:06 VLDL Cholesterol 21.0 mg/dL (10-31) 12/25/19 05:06 HDL Cholesterol 52 mg/dL (>40) 12/25/19 05:06 TSH 0.13 uIU/mL (0.47-4.68) L 12/25/19 05:06 Free T4 1.45 ng/dL (0.78-2.19) 12/25/19 05:06 Free T3 pg/mL 1.81 pg/mL (2.77-5.27) L 12/25/19 05:06 Urine Color YELLOW 12/29/19 03:30 Urine Appearance CLEAR 12/29/19 03:30 Urine pH 6.0 (5.0-9.0) 12/29/19 03:30 Ur Specific [place] 1.038 12/29/19 03:30 Urine Protein 100 mg/dL (NEGATIVE) H 12/29/19 03:30 Urine Glucose (UA) 50 mg/dL (NEGATIVE) H 12/29/19 03:30 Urine Ketones NEGATIVE mg/dL (NEGATIVE) 12/29/19 03:30 Urine Blood NEGATIVE (NEGATIVE) 12/29/19 03:30 Urine Nitrite NEGATIVE (NEGATIVE) 12/29/19 03:30 Ur Leukocyte Esterase NEGATIVE (NEGATIVE) 12/29/19 03:30 Urine WBC (Auto) 1 /HPF 12/29/19 03:30 Urine RBC (Auto) 1 /HPF 12/29/19 03:30 Current Medication List Generic Name Dose Route Start Last Admin Trade Name Freq PRN Reason Stop Dose Admin Acetaminophen 650 mg 12/24/19 19:19 Tylenol 325 Mg Tablet PO 01/23/20 19:18 Q4HP PRN FOR PAIN OR TEMP Al Hydrox/Mg Hydrox/Simethicone 15 ml 12/24/19 19:19 Maalox Plus Susp 30 Udcup PO 01/23/20 19:18 Q6HP PRN HEARTBURN Albuterol 2 puff 12/24/19 19:48 Proair Hfa Inhalation Aerosol 8.5 Gm Mdi IH 01/23/20 19:47 Q4HP PRN WHEEZING Apixaban 5 mg 12/29/19 18:00 12/30/19 17:12 Eliquis 5 Mg Tablet PO 01/28/20 17:59 5 mg BID FERNY Administration Ascorbic Acid 500 mg 12/25/19 10:00 12/30/19 17:12 Vitamin C 500 Mg Tablet PO 01/24/20 09:59 500 mg BID FERNY Administration Aspirin 81 mg 12/26/19 10:00 12/30/19 09:47 Ecotrin 81 Mg Ec Tablet PO 01/25/20 09:59 81 mg DAILY FERNY Administration Atorvastatin Calcium 80 mg 12/28/19 22:00 12/30/19 23:26 Lipitor 20 Mg Tablet PO 01/27/20 21:59 80 mg QHS FERNY Administration Calcium Carbonate 1 tab 12/25/19 22:00 12/30/19 23:26 Caltrate 600-Vit D3 400 Tablet PO 01/24/20 21:59 1 tab QHS FERNY Administration Cetirizine HCl 10 mg 12/25/19 20:25 Zyrtec 10 Mg Tablet PO 01/24/20 20:24 HSP PRN FOR ALLERGIES Cholecalciferol 2,000 unit 12/25/19 10:00 12/30/19 09:46 Vitamin D3 1000 Unit Tablet PO 01/24/20 09:59 2,000 unit DAILY FERNY Administration Citalopram Hydrobromide 10 mg 12/26/19 10:00 12/30/19 09:46 Celexa 20 Mg Tablet PO 01/25/20 09:59 10 mg DAILY FERNY Administration Dextrose 12.5 gm 12/24/19 19:39 12/31/19 05:38 Dextrose Inj 50% Syringe (25 Gm/50 Ml) IV 01/23/20 19:38 12.5 gm PRN PRN Administration FOR BG 50-69 IN ALERT PATIENT Protocol Dextrose 25 gm 12/24/19 19:39 Dextrose Inj 50% Syringe (25 Gm/50 Ml) IV 01/23/20 19:38 PRN PRN PER PROTOCOL Protocol Folic Acid 1 mg 12/26/19 10:00 12/30/19 09:47 Folvite 1 Mg Tablet PO 01/25/20 09:59 1 mg DAILY FERNY Administration Glucagon 1 mg 12/24/19 19:39 Glucagen Inj 1 Mg Vial IM 01/23/20 19:38 PRN PRN Evaluate for BG < 70 Protocol Glucose 15 gm 12/24/19 19:39 Glutose 40% Gel 15 Gm Tube PO 01/23/20 19:38 PRN PRN FOR BG 50-69 IN ALERT PATIENT Protocol Glucose 30 gm 12/24/19 19:39 Glutose 40% Gel 15 Gm Tube PO 01/23/20 19:38 PRN PRN FOR BG < 50 IN ALERT PATIENT Protocol Hydroxyzine Pamoate 25 mg 12/26/19 16:16 Vistaril 25 Mg Capsule PO 01/25/20 16:15 Q8HP PRN ANXIETY Insulin Human Lispro 0 - 12 unit 12/25/19 16:00 12/31/19 07:28 Humalog Insulin 100 Unit/1 Ml 3 Ml Vial SUBCUT 01/24/20 15:59 Not Given ACHS FERNY Protocol Insulin Human NPH 25 unit 12/26/19 09:00 12/30/19 09:45 Humulin N (Nph) Insulin 100 Unit/1 Ml 3 Ml SUBCUT 01/25/20 08:59 25 unit QAM FERNY Administration Insulin Human NPH 20 unit 12/26/19 22:00 12/30/19 23:27 Humulin N (Nph) Insulin 100 Unit/1 Ml 3 Ml SUBCUT 01/25/20 21:59 1 unit QHS FERNY Administration Levothyroxine Sodium 0.075 mg 12/26/19 08:30 12/31/19 05:38 Synthroid 0.075 Mg Tablet PO 01/25/20 08:29 0.075 mg [id number]@[id number] FERNY Administration Levothyroxine Sodium 0.088 mg 12/29/19 06:00 12/30/19 07:00 Synthroid 0.088 Mg Tablet PO 01/28/20 05:59 0.088 mg SuSa@0600 FERNY Administration Lisinopril 10 mg 12/29/19 10:00 12/30/19 09:46 Prinivil 10 Mg Tablet PO 01/28/20 09:59 10 mg DAILY FERNY Administration Melatonin 6 mg 12/24/19 22:00 12/30/19 23:26 Melatonin 3 Mg Tablet PO 01/23/20 21:59 6 mg QHS FERNY Administration Metoprolol Tartrate 100 mg 12/30/19 10:00 12/30/19 23:26 Lopressor 100 Mg Tablet PO 01/29/20 09:59 100 mg Q12 FERNY Administration Metoprolol Tartrate 2.5 mg 12/30/19 18:26 12/30/19 18:57 Lopressor Inj/Pf 5 Mg/5 Ml Sdv IV 01/29/20 18:25 2.5 mg Q6HP PRN Administration Sustained HR >140 Multivitamins 1 tab 12/26/19 10:00 12/30/19 09:46 Tab-A-Mirella (Multiple Vitamin) Tablet PO 01/25/20 09:59 1 tab DAILY FERNY Administration Pantoprazole Sodium 40 mg 12/26/19 17:00 12/31/19 05:[address] Tablet PO 01/25/20 16:59 Not Given BID@0600,1700 FERNY Prednisone 40 mg 12/30/19 10:00 12/30/19 09:46 Deltasone 20 Mg Tablet PO 01/29/20 09:59 40 mg DAILY FERNY Administration Promethazine HCl 12.5 mg 12/24/19 19:19 12/28/19 05:55 Phenergan Inj 25 Mg/1 Ml Vial IV 01/23/20 19:18 12.5 mg Q4HP PRN Administration FOR NAUSEA/VOMITING Sodium Chloride 2.5 ml 12/24/19 22:00 12/31/19 05:39 Saline Flush 2.5 Ml Monoject Prefil Syrin IV 01/23/20 21:59 Not Given Q8 [facility] Zinc Sulfate 220 mg 12/25/19 10:00 12/30/19 09:47 Zinc-220 Capsule PO 01/24/20 09:59 220 mg DAILY FERNY Administration Zolpidem Tartrate 5 mg 12/26/19 16:16 Ambien 5 Mg Tablet PO 01/02/20 16:15 HSP PRN SLEEP OR INSOMNIA Discontinued Medications Generic Name Dose Route Start Last Admin Trade Name Freq PRN Reason Stop Dose Admin Albuterol 2.5 mg 12/24/19 19:19 Ventolin 0.083% Neb 2.5 Mg/3 Ml Ampul NEB 01/23/20 19:18 RTQ4HP PRN SHORTNESS OF BREATH Amlodipine Besylate 5 mg 12/26/19 10:00 Norvasc 5 Mg Tablet PO 01/25/20 09:59 DAILY [facility] Amlodipine Besylate 10 mg 12/26/19 10:00 12/30/19 10:59 Norvasc 10 Mg Tablet PO 08/28/20 09:59 Not Given DAILY FERNY Aspirin 81 mg 12/24/19 22:00 12/24/19 22:16 Ecotrin 81 Mg Ec Tablet PO 12/24/19 23:00 81 mg QHS FERNY Administration Atenolol 100 mg 12/26/19 10:00 12/27/19 09:42 Tenormin 50 Mg Tablet PO 01/25/20 09:59 100 mg DAILY FERNY Administration Atorvastatin Calcium 40 mg 12/24/19 22:00 12/24/19 22:28 Lipitor 40 Mg Tablet PO 12/24/19 23:00 40 mg QHS FERNY Administration Atorvastatin Calcium 20 mg 12/25/19 22:00 12/27/19 22:12 Lipitor 20 Mg Tablet PO 01/24/20 21:59 20 mg QHS FERNY Administration Azithromycin 500 mg 12/24/19 18:01 12/24/19 18:35 Zithromax 250 Mg Tablet PO 12/24/19 18:02 500 mg NOW ONE Administration Azithromycin 250 mg 12/25/19 18:00 12/27/19 17:33 Zithromax 250 Mg Tablet PO 01/01/20 17:59 250 mg QPM FERNY Administration Dexamethasone Sodium Phosphate 2 mg 12/24/19 22:00 12/26/19 13:35 Decadron Inj 4 Mg/Ml Vial IV 01/23/20 21:59 2 mg Q8 FERNY Administration Dexamethasone Sodium Phosphate 2 mg 12/26/19 22:00 12/27/19 09:44 Decadron Inj 4 Mg/Ml Vial IV 01/25/20 21:59 2 mg Q12 FERNY Administration Diltiazem HCl 20 mg 12/25/19 11:21 12/25/19 11:44 Cardizem Inj 25 Mg/5 Ml Vial IV 12/25/19 11:22 20 mg NOW ONE Administration Diltiazem HCl 20 mg 12/27/19 11:30 12/27/19 12:08 Cardizem Inj 25 Mg/5 Ml Vial IV 12/27/19 11:31 Not Given NOW ONE Diltiazem HCl 25 mg 12/28/19 07:00 12/28/19 06:59 Cardizem Inj 25 Mg/5 Ml Vial IV 12/28/19 07:01 25 mg NOW ONE Administration Diltiazem HCl Confirm 12/28/19 06:53 12/28/19 07:54 Cardizem Inj 25 Mg/5 Ml Vial Administered 12/28/19 06:54 Not Given Dose 25 mg .ROUTE .STK-MED ONE Enoxaparin Sodium 80 mg 12/24/19 22:00 12/29/19 09:13 Lovenox Inj 80 Mg/0.8 Ml Disp.Syrin SUBCUT 01/23/20 21:59 80 mg Q12 FERNY Administration Hydralazine HCl 25 mg 12/26/19 10:00 12/28/19 10:00 Apresoline 25 Mg Tablet PO 01/25/20 09:59 Not Given Q12 FERNY Hydrochlorothiazide 12.5 mg 12/26/19 10:00 12/29/19 09:14 Hydrodiuril 12.5 Mg Tablet PO 01/25/20 09:59 12.5 mg DAILY FERNY Administration Sodium Chloride 1,000 mls @ 0 mls/hr 12/24/19 18:01 12/24/19 19:36 Nacl 0.9% 1000 Ml Iv Soln IV 12/24/19 18:02 Infused BOLUS ONE Infusion Wide Open Ceftriaxone Sodium/Dextrose 2 gm in 50 mls @ 100 mls/hr 12/24/19 18:01 12/24/19 19:07 Rocephin Rtu 2 Gm/D5w 50 Ml Premix Bag IV 12/24/19 18:30 Infused NOW ONE Infusion Ceftriaxone Sodium/Dextrose 1 gm in 50 mls @ 100 mls/hr 12/25/19 10:00 12/26/19 10:49 Rocephin Rtu 1 Gm/D5w 50 Ml Premix IV 01/01/20 09:59 Infused DAILY FERNY Infusion Insulin Human Lispro 16 unit 12/25/19 12:30 12/25/19 12:24 Humalog Insulin 100 Unit/1 Ml 3 Ml Vial SUBCUT 12/25/19 12:31 16 unit NOW ONE Administration Insulin Human Lispro Confirm 12/25/19 22:21 12/25/19 22:27 Humalog Insulin 100 Unit/1 Ml 3 Ml Vial Administered 12/25/19 22:22 Not Given Dose 1 unit .ROUTE .STK-MED ONE Insulin Human Lispro 15 unit 12/25/19 22:30 12/25/19 22:38 Humalog Insulin 100 Unit/1 Ml 3 Ml Vial SUBCUT 12/25/19 22:31 15 unit NOW ONE Administration Insulin Human Lispro 20 unit 12/26/19 13:30 12/26/19 13:34 Humalog Insulin 100 Unit/1 Ml 3 Ml Vial SUBCUT 12/26/19 13:31 20 unit NOW ONE Administration Insulin Human Lispro 20 unit 12/26/19 14:00 12/26/19 13:41 Humalog Insulin 100 Unit/1 Ml 3 Ml Vial SUBCUT 12/26/19 14:01 20 unit NOW ONE Administration Insulin Human NPH 20 unit 12/26/19 18:00 Humulin N (Nph) Insulin 100 Unit/1 Ml 3 Ml SUBCUT 01/25/20 17:59 QPM [facility] Insulin Human Regular 0 - 12 unit 12/24/19 22:00 12/25/19 11:37 Humulin R (Pyxis) Insulin 100 Unit/Ml 3ml SUBCUT 01/23/20 21:59 Not Given ACHS [facility] Protocol Insulin Human Regular 4 unit 12/25/19 10:30 12/25/19 09:45 Humulin R (Pyxis) Insulin 100 Unit/Ml 3ml SUBCUT 12/25/19 10:31 4 unit NOW ONE Administration Levothyroxine Sodium 0.075 mg 12/26/19 10:00 Synthroid 0.075 Mg Tablet PO 01/25/20 09:59 [id number]@1000 [facility] Levothyroxine Sodium 0.088 mg 12/29/19 10:00 Synthroid 0.088 Mg Tablet PO 01/28/20 09:59 SUSA@1000 [facility] Lisinopril 10 mg 12/24/19 22:00 12/24/19 22:31 Prinivil 10 Mg Tablet PO 12/24/19 23:00 10 mg DAILY [facility] Administration Lisinopril 20 mg 12/26/19 10:00 12/28/19 10:01 Prinivil 10 Mg Tablet PO 01/25/20 09:59 Not Given DAILY [facility] Metoprolol Succinate 100 mg 12/30/19 10:00 Toprol Xl 50 Mg Tab.Sr PO 01/29/20 09:59 Q12 [facility] Metoprolol Tartrate 25 mg 12/27/19 12:00 12/28/19 17:03 Lopressor 25 Mg Tablet PO 01/26/20 11:59 25 mg Q6 [facility] Administration Metoprolol Tartrate Confirm 12/28/19 06:13 12/28/19 06:18 Lopressor Inj/Pf 5 Mg/5 Ml Sdv Administered 12/28/19 06:14 5 mg Dose Administration 5 mg IV .STK-MED ONE Metoprolol Tartrate 5 mg 12/28/19 06:45 12/28/19 07:54 Lopressor Inj/Pf 5 Mg/5 Ml Sdv IV 12/28/19 06:46 Not Given NOW ONE Metoprolol Tartrate 50 mg 12/28/19 18:00 12/30/19 06:57 Lopressor 50 Mg Tablet PO 01/27/20 17:59 50 mg Q6 FERNY Administration Prednisone 60 mg 12/28/19 10:00 12/29/19 09:15 Deltasone 20 Mg Tablet PO 01/27/20 09:59 60 mg DAILY FERNY Administration Assessment & Plan - Diagnosis (1) Atrial fibrillation with RVR Is this a current diagnosis for this admission?: Yes Plan: Unfortunately she continues to have atrial fibrillation with rapid ventricular response reason why she will undergo EL guided cardioversion later today. She has remained n.p.o. since last night. The risks, benefits and alternatives to EL guided cardioversion were explained in detail to the patient, her questions were answered and she verbalized her desire to proceed. Recommendations: -Continue with current medical management for now. -Continue with Eliquis 5 mg p.o. twice daily. -Proceed with EL guided cardioversion today. -Further management pending outcome of EL guided cardioversion. (2) Coronary artery disease Qualifiers: Coronary Disease-Associated Artery/Lesion type: [place] artery [place] vs. transplanted heart: ch[place] heart Associated angina: without angina Qualified Code(s): I25.10 - Atherosclerotic heart disease of [place] coronary artery without angina pectoris Is this a current diagnosis for this admission?: Yes Plan: The patient underwent stenting of the proximal right coronary artery in October 16. She is currently free of ischemic symptoms however she does have lower extremity edema which she attributes to increased doses of Norvasc. She has remained free of ischemic and heart failure symptoms and without evidence of heart failure by exam or radiographic assessment. Recommendations: -Discontinue hydralazine. -Uptitrate lisinopril as indicated to keep systolic blood pressure to 130/80 or below. -Strict intake and output. -Minimize IV fluids. -Low sodium/low cholesterol diet. -Increase Lipitor to 80 mg daily. -We will continue to follow-up with you. (3) Hypertension Qualifiers: Hypertension type: essential hypertension Qualified Code(s): I10 - Essential (primary) hypertension Is this a current diagnosis for this admission?: Yes Plan: Her blood pressure is at goal. I will defer further management to the primary team.
[2019-12-31] MEDS: ZINC SULFATE 220 MG CAPSULE PO SCH (09:52)
[2019-12-31] MEDS: LISINOPRIL 10 MG TABLET PO SCH (09:52)
[2019-12-31] MEDS: CHOLECALCIFEROL (D3) 1,000 UNIT (25 MCG) TABLET PO SCH (09:52)
[2019-12-31] MEDS: PREDNISONE 20 MG TABLET PO SCH (09:52)
[2019-12-31] MEDS: ASPIRIN 81 MG TABLET, ENT COATED PO SCH (09:53)
[2019-12-31] MEDS: CITALOPRAM HYDROBROMIDE 20 MG TABLET PO SCH (09:53)
[2019-12-31] MEDS: FOLIC ACID 1 MG TABLET PO SCH (09:53)
[2019-12-31] MEDS: METOPROLOL TARTRATE 100 MG TABLET PO SCH ×2 (09:53→21:58)
[2019-12-31] MEDS: MULTIVITAMIN TABLET PO SCH (09:53)
[2019-12-31] MEDS: ASCORBIC ACID 500 MG TABLET PO SCH ×2 (09:53→17:06)
[2019-12-31] MEDS: APIXABAN 5 MG TABLET PO SCH ×2 (09:53→17:06)
--- NOTE | 2019-12-31 12:27 | EKG REPORT ---
SEVERITY:- ABNORMAL ECG - ATRIAL FIBRILLATION, V-RATE 81-172 ABERRANT COMPLEX, POSSIBLY SUPRAVENTRICULAR PROBABLE LVH WITH SECONDARY REPOL ABNRM : Confirmed by: Jagjit Jaquez MD 31-Dec-2019 12:26:39
[2019-12-31] MEDS ORDERED: LIDOCAINE 2% INJ-PF (100 MG/5 ML) SYRINGE ONE (13:34)
[2019-12-31] MEDS ORDERED: PROPOFOL INJ 200 MG/20 ML VIAL IV ONE (13:34)
[2019-12-31] MEDS ORDERED: DILTIAZEM HCL INJ 25 MG/5 ML VIAL ONE (13:50)
--- NOTE | 2019-12-31 14:16 | Progress Note ---
Provider Note Provider Note: DIRECT CURRENT CARDIOVERSION Date : 12/31/2019 Referring physician: Dr. Giuseppe Cunningham Procedure: Direct current cardioversion Anesthesia: General anesthesia Indication: Atrial fibrillation with rapid ventricular response Clinical history 64-year-old lady with new onset atrial fibrillation with rapid ventricular response. She has CAD with stents from 2001( RCA) and carries a diagnosis of COPD and DM. EL Cardioverison is requested. EL was done initially and was negative for LA thrombus. We decided to proceed with direct current cardioversion. PROCEDURE The patient was brought to the holding area in a fasting and non-sedated state. Informed consent was obtained prior to the procedure. General anesthesia was administered. Please see anesthesia notes for medication details. Patient's presenting rhythm was atrial fibrillation with rapid ventricular response. The patient's EKG and vital signs were monitored throughout. Once the patient was comfortably sedated a single direct current bi-phasic 200 J shock was administered across defibrillator patches applied in jostin-posterior fashion across the chest. This resulted in prompt uatsdin of sinus rhythm. The patient tolerated the procedure well. Conclusion Successful conversion of atrial fibrillation to sinus rhythm Plan Continue systemic anticoagulation-apixaban 5 mg twice daily without interruption Continue other medications
[2019-12-31] MEDS ORDERED: PROMETHAZINE HCL INJ 25 MG/1 ML VIAL IV PRN (14:30)
--- NOTE | 2019-12-31 16:00 | PDOC PROGRESS REPORT ---
Subjective Progress Note for:: 12/31/19 Subjective:: Patient was seen on morning rounds, prior to EL/Cardioversion, with her present. She is found resting in bed, comfortably, on room air. Feels well today. No further palpations but does continue to have a variable HR (heart rate 120s 140s with minimal activity). No chest pain or dyspnea. She further denies fever, chills, chest pain, dyspnea, orthopnea, cough, dyspepsia, abdominal pain, nausea, vomiting. Discussed planned EL and cardioversion today; comfortable with plan as she has reviewed details w/ Dr. De Anda this morning. She has no other questions or concerns at this time. No concerns per nursing. Reason For Visit: COPD EXACERBATION,CORONARY ARTERY DISEASE,HYPERTEN Physical Exam Vital Signs: Temp Pulse Resp BP Pulse Ox 98.1 F 56 L 17 117/56 L 94 12/31/19 14:33 12/31/19 14:33 12/31/19 14:33 12/31/19 14:33 12/31/19 14:33 Intake & Output 12/30/19 12/31/19 01/01/20 06:59 06:59 06:59 Intake Total 905 1440 400 Balance 905 1440 400 Weight 74.5 kg 75.1 kg General appearance: PRESENT: no acute distress, cooperative, well-developed, well-nourished Head exam: PRESENT: atraumatic, normocephalic Eye exam: PRESENT: conjunctiva pink, EOMI, PERRLA. ABSENT: scleral icterus Mouth exam: PRESENT: moist, tongue midline Neck exam: ABSENT: carotid bruit, JVD, lymphadenopathy, thyromegaly Respiratory exam: PRESENT: clear to auscultation luz maria, symmetrical, unlabored. ABSENT: rales, rhonchi, wheezes Cardiovascular exam: PRESENT: irregular rhythm, +S1, +S2, tachycardia. ABSENT: diastolic murmur, rubs, systolic murmur Pulses: PRESENT: normal dorsalis pedis pul Vascular exam: PRESENT: normal capillary refill Extremities exam: PRESENT: full ROM. ABSENT: calf tenderness, clubbing, pedal edema Musculoskeletal exam: PRESENT: ambulatory Neurological exam: PRESENT: alert, awake, oriented to person, oriented to place, oriented to time, oriented to situation, CN II-XII grossly intact. ABSENT: motor sensory deficit Psychiatric exam: PRESENT: appropriate affect, normal mood. ABSENT: homicidal ideation, suicidal ideation Skin exam: PRESENT: dry, intact, warm. ABSENT: cyanosis, rash Results Laboratory Results: 12/31/19 05:09 12/31/19 05:09 12/31/19 12/31/19 05:09 05:09 WBC 10.2 RBC 3.59 L Hgb 10.1 L Hct 29.7 L MCV 83 MCH 28.2 MCHC 34.0 RDW 15.3 H Plt Count 229 Sodium 132.7 L Potassium 3.8 Chloride 99 Carbon Dioxide 29 Anion Gap 5 BUN 21 H Creatinine 0.81 Est GFR ( Amer) > 60 Glucose 55 L Calcium 8.9 Impressions: Chest/Abdomen CTA 12/24/19 18:00 IMPRESSION: Mild emphysema. Chest CT 12/28/19 00:00 IMPRESSION: No acute abnormality within the chest. Subacute fracture involving the left anterior fifth rib. 3.0 mm solid pulmonary nodule within the upper lobe. If patient is low risk for malignancy, no routine follow-up imaging is recommended; if patient is high risk for malignancy, a non-contrast Chest CT at 12 months is optional. If performed and the nodule is stable at 12 months, no further follow-up is recommended. These guidelines do not apply to immunocompromised patients and patients with cancer. Follow up in patients with significant comorbidities as clinically warranted. For lung cancer screening, adhere to Lung-RADS guidelines. Reference: Radiology. 2017; 284(1):228-43. Splenic varices with splenorenal shunt. TECHNICAL DOCUMENTATION: Quality ID # 436: Final reports with documentation of one or more dose reduction techniques (e.g., Automated exposure control, adjustment of the mA and/or kV according to patient size, use of iterative reconstruction technique) copyright 2011 [employer]- All Rights Reserved Chest X-Ray 12/28/19 00:00 IMPRESSION: No interval change in the chest. Assessment and Plan - Diagnosis (1) Atrial fibrillation with RVR Is this a current diagnosis for this admission?: Yes Plan: Improved rate control; not at goal. Atrial fibrillation with RVR. Cardiology was consulted; appreciate Dr. De Anda's assistance Continue metoprolol 100 mg every 12 hours. Continue Eliquis. Planned EL/Cardioversion by Dr. Costello today (2) COPD (chronic obstructive pulmonary disease) with chronic bronchitis Is this a current diagnosis for this admission?: Yes Plan: Stable and without exacerbation at this time. The patient reports COPD. She states that she has not had an exacerbation in a long time. She does have an albuterol rescue inhaler at home but has been not on any chronic daily inhaler therapy. She does not use oxygen at home. (3) Coronary artery disease Qualifiers: Coronary Disease-Associated Artery/Lesion type: [place] artery [place] vs. transplanted heart: [place] heart Associated angina: without angina Qualified Code(s): I25.10 - Atherosclerotic heart disease of [place] coronary artery without angina pectoris Is this a current diagnosis for this admission?: Yes Plan: The patient states that she had a stent placed approximately 10 years ago or more. She was following with cardiology but then decided to change practitioners. Continue aspirin and statin therapy. Antihypertensive as above. Cardiac diet. (4) Depression Qualifiers: Depression Type: unspecified Qualified Code(s): F32.9 - Major depressive disorder, single episode, unspecified Is this a current diagnosis for this admission?: Yes Plan: Home dose Celexa. Vistaril as needed anxiety (5) Diabetes mellitus Qualifiers: Diabetes mellitus type: type 1 Diabetes mellitus complication status: without complication Qualified Code(s): E10.9 - Type 1 diabetes mellitus without complications Is this a current diagnosis for this admission?: Yes Plan: Improved glucose control off steroids. A1c 6.4%. Resume home dose NPH. Accu-Cheks before meals and at bedtime with Humalog per sliding scale coverage. Hypoglycemia protocol. Cardiac/consistent carb diet. (6) Elevated d-dimer Is this a current diagnosis for this admission?: Yes Plan: CTA chest negative for pulmonary embolus. Improving; d-dimer down to 1.47 Now on Eliquis (7) Elevated liver function tests Is this a current diagnosis for this admission?: Yes Plan: Resolved. She reports rare to occasional glasses of wine. No other indication for elevated transaminases. (8) Fever Qualifiers: Fever type: unspecified Qualified Code(s): R50.9 - Fever, unspecified Is this a current diagnosis for this admission?: Yes Plan: Resolved. Blood cultures (1/4 bottles) shows coag negative staph; contaminant. Antibiotics as below (9) Hypertension Qualifiers: Hypertension type: essential hypertension Qualified Code(s): I10 - Essential (primary) hypertension Is this a current diagnosis for this admission?: Yes Plan: Well-controlled at present. Currently on metoprolol 100 mg every 12 and lisinopril 10 mg daily. Cardiac diet. (10) Hyponatremia Is this a current diagnosis for this admission?: Yes Plan: Sodium trending up; 125.3-> 122.5-> 125.1-> 132.7 Liberalize dietary sodium. Fluid restrict 1.2 L/daily Follow up chemistry. (11) Hypothyroidism, postsurgical Is this a current diagnosis for this admission?: Yes Plan: Continue home dose levothyroxine. (12) Suspected COVID-19 virus infection Is this a current diagnosis for this admission?: Yes Plan: Ruled Out Rapid and send out COVID-19 tests are negative. However, she has numerous laboratory results supportive of COVID-19 (elevated d- dimer, transaminases, CRP, LDH, ferritin) that can not be explained otherwise. CTA negative for pulmonary embolus and pneumonia. COPD exacerbation is not suspected (no wheezing on exam) and certainly would not be the cause of the above-mentioned laboratory changes. Chest U/S benign Chest CT w/ negative for acute findings; specifically no ground glass or infiltrates noted. D-dimer improved (1.47) CRP equivocal (132.7 Ferritin increased (581) LDH increased (289) Due to elevated d-dimer, she was placed on full dose Lovenox. Received 3 days of Rocephin Completed 5 day course of Azithromycin. Transitioned to p.o. prednisone; weaning Continue vitamin C, vitamin D, zinc, and melatonin supplementation. Encourage pulmonary toilet. Contact and droplet precautions. Patient and family with, understandable, high level of frustration/anxiety regarding unclear dx. Dr. Ly provided bedside eval w/ US. B lines noted; recommended follow up CT Chest to evaluate for ground glass changes. As both are negative, effectively r/o COVID. - Time Time Spent with patient: 25-34 minutes Medications reviewed and adjusted accordingly: Yes Anticipated Discharge Disposition: Home, Self Care Anticipated Discharge Timeframe: within 24 hours - pending Cardiac clearance
--- NOTE | 2019-12-31 19:10 | XCELERA REPORT ---
Study ID: [id number] Transesophageal Echocardiogram Report Name: ALONZO DAWKINS Age: 64 yrs Gender: Female : 1955 Patient Status: Inpatient Patient Location: [address] [place] [address] Study Date: 12/31/2019 12:09 PM History: Atrial fibrillation Height: 62 in Weight: 164 lb BSA: 1.8 m2 Reason For Study: EL guidede cardioversion Ordering Physician: SHAYNE ESCOBEDO Performed By: Carmen Torres Interpretation Summary Left ventricular systolic function is low normal. Ejection Fraction = 50-55%. The right ventricle is normal in size and function. There is mild to moderate mitral regurgitation. There is trace tricuspid regurgitation. No thrombus is detected in the left atrial appendage. No hemodynamically significant valvular aortic stenosis. There is no pericardial effusion. Procedure A complete two-dimensional transesophageal echocardiogram was performed (2D, spectral and color flow Doppler). Informed consent for Transesophageal Echocardiogram, and use of a contrast agent as needed, was obtained prior to the procedure. The patient was brought to the OR in a fasting state. An intravenous line was placed. A topical anesthetic agent was used for oropharangeal anesthesia. A bite block was inserted. IV conscious sedation was administered using per anesthesia. The patient's vital signs, including blood pressure, heart rate, pulse oximetry and cardiac rhythm were monitored thoughout the procedure. The transesophageal probe was passed without difficulty. The usual views were obtained; basal, mid-esophageal, transgastric and aortic views. The patient tolerated the procedure well without evidence of orophangeal or esophageal trauma. Left Ventricle The left ventricle is grossly normal size. There is no thrombus. There is normal left ventricular wall thickness. Ejection Fraction = 50-55%. Left ventricular systolic function is low normal. No regional wall motion abnormalities noted. Right Ventricle The right ventricle is normal in size and function. Atria The interatrial septum is intact with no evidence for an atrial septal defect. The left atrium is mildly dilated. No thrombus is detected in the left atrial appendage. LA velocities are diminished. Right atrial size is normal. Mitral Valve The mitral valve is grossly normal. There is no mitral valve stenosis. There is mild to moderate mitral regurgitation. Tricuspid Valve The tricuspid valve is normal in structure and function. There is trace tricuspid regurgitation. Aortic Valve The aortic valve is trileaflet. The aortic valve opens well. No hemodynamically significant valvular aortic stenosis. No aortic regurgitation is present. Pulmonic Valve The pulmonic valve is not well visualized. Arteries The aortic root is not well visualized but is probably normal size. Mild atherosclerotic plaque(s) in the descending aorta. Pericardium There is no pericardial effusion. : SHAYNE ESCOBEDO Anil
[2019-12-31] MEDS: MELATONIN 3 MG TABLET PO SCH (21:58)
[2019-12-31] MEDS: CALCIUM CARBONATE 600 MG/VITAMIN D3 400 UNIT TABLET PO SCH (21:58)
[2019-12-31] MEDS ORDERED: ATORVASTATIN CALCIUM 80 MG TABLET PO SCH (22:00)
[2020-01-01 04:58] LABS: HEMATOCRIT 27.5 % (36.0-47.0); HEMOGLOBIN 9.5 g/dL (12.0-15.5); MEAN CORPUSCULAR HEMOGLOBIN 28.7 pg (27.0-33.4); MEAN CORPUSCULAR HGB CONC 34.5 g/dL (32.0-36.0); MEAN CORPUSCULAR VOLUME 83 fl (80-97); PLATELET COUNT 212 10^3/uL (150-450); RED BLOOD COUNT 3.31 10^6/uL (3.72-5.28); RED CELL DISTRIBUTION WIDTH 15.5 % (11.5-14.0); WHITE BLOOD COUNT 9.7 10^3/uL (4.0-10.5)
[2020-01-01 05:18] LABS: BLOOD UREA NITROGEN 29 mg/dL (7-20); GLUCOSE 209 mg/dL (75-110); POTASSIUM 4.3 mmol/L (3.6-5.0)
[2020-01-01] MEDS: PANTOPRAZOLE SODIUM 40 MG TABLET.DR PO SCH (05:18)
[2020-01-01] MEDS: LEVOTHYROXINE SODIUM 0.075 MG TABLET PO SCH (05:19)
[2020-01-01 05:24] LABS: ANION GAP 6 (5-19); CARBON DIOXIDE 28 mmol/L (22-30); CHLORIDE 96 mmol/L (98-107)
--- NOTE | 2020-01-01 08:00 | PDOC PROGRESS REPORT ---
Subjective Progress Note for:: 01/01/20 Subjective:: ALONZO DAWKINS is a 64 year old female with a history of coronary artery disease status post PCI to the proximal RCA with a 4.0 mm x 18 mm Elite stent in September 2001, palpitations, PACs in the past, COPD, hyperlipidemia, hypertension, depression, diabetes mellitus and hyponatremia who was admitted to [facility] on 12/24/2019 with several weeks of increasing shortness of breath and cough as well as fevers and who is consulted to our service for rapid atrial fibrillation. The hospitalist service has been treating her for COVID-19 as she clinically is having all symptoms and signs of COVID infection despite negative testing. The patient had been responding appropriately to treatment for her pulmonary condition however began to have episodes of paroxysmal atrial fibri llation recently and, as of yesterday, had remained in rapid atrial fibrillation. She was begun on Lopressor 25 p.o. every 6 with some improvement in her pulse. This morning she is found in bed, resting comfortably although she complains of shortness of breath and racing heart. She feels hot to the touch. 01/01/2020: The patient had an eventful night and remains asymptomatic from the cardiovas cular standpoint. She underwent EL guided cardioversion yesterday successfully and feels much better this morning. She denies ischemic or heart failure symptoms. Her telemetry shows sinus bradycardia. Physical exam on 01/01/2020: GENERAL: Pleasant and conversational. Oriented x3 with normal mood. Not in acute distress however she is speaking in short sentences and appears to be short of breath. HEENT: Normocephalic, atraumatic. Pupils equal. Sclerae anicteric. Oropharynx moist. NECK: No JVD. No carotid bruits. LUNGS: Clear to auscultation bilaterally, decreased breath sounds bilaterally. Normal respiratory effort without the use of accessory muscles or intercostal retractions. CARDIOVASCULAR: Regular rate and rhythm, bradycardic, normal S1 and S2 without murmurs, rubs, or gallops. PMI not displaced. ABDOMEN: No masses or tenderness to palpation. No bruit. No splenomegaly or hepatomegaly. No abdominal aorta bruit noted. EXTREMITIES: Trace pitting edema bilaterally, no cyanosis, no clubbing. +2 pulses femoral and pedal pulses bilaterally. SKIN: No lesions or rashes. MUSCULOSKELETAL: No chest tenderness to palpation. NEUROLOGIC: Nonfocal. No gross sensory or motor deficits bilateral upper or lower extremities. Reason For Visit: COPD EXACERBATION,CORONARY ARTERY DISEASE,HYPERTEN Physical Exam Vital Signs: Temp Pulse Resp BP Pulse Ox 98.2 F 53 L 16 121/62 98 12/31/19 23:40 01/01/20 02:00 12/31/19 23:40 12/31/19 23:40 12/31/19 23:40 Intake & Output 12/31/19 01/01/20 01/02/20 06:59 06:59 06:59 Intake Total 1440 1740 Balance 1440 1740 Weight 75.1 kg 75.1 kg Results Laboratory Results: 01/01/20 04:31 01/01/20 04:31 01/01/20 01/01/20 04:31 04:31 WBC 9.7 RBC 3.31 L Hgb 9.5 L Hct 27.5 L MCV 83 MCH 28.7 MCHC 34.5 RDW 15.5 H Plt Count 212 Sodium 129.8 L Potassium 4.3 Chloride 96 L Carbon Dioxide 28 Anion Gap 6 BUN 29 H Creatinine 0.97 Est GFR ( Amer) > 60 Glucose 209 H Calcium 9.0 Impressions: Chest/Abdomen CTA 12/24/19 18:00 IMPRESSION: Mild emphysema. Chest CT 12/28/19 00:00 IMPRESSION: No acute abnormality within the chest. Subacute fracture involving the left anterior fifth rib. 3.0 mm solid pulmonary nodule within the upper lobe. If patient is low risk for malignancy, no routine follow-up imaging is recommended; if patient is high risk for malignancy, a non-contrast Chest CT at 12 months is optional. If performed and the nodule is stable at 12 months, no further follow-up is recommended. These guidelines do not apply to immunocompromised patients and patients with cancer. Follow up in patients with significant comorbidities as clinically warranted. For lung cancer screening, adhere to Lung-RADS guidelines. Reference: Radiology. 2017; 284(1):228-43. Splenic varices with splenorenal shunt. TECHNICAL DOCUMENTATION: Quality ID # 436: Final reports with documentation of one or more dose reduction techniques (e.g., Automated exposure control, adjustment of the mA and/or kV according to patient size, use of iterative reconstruction technique) copyright 2011 [email or web address]- All Rights Reserved Chest X-Ray 12/28/19 00:00 IMPRESSION: No interval change in the chest. 01/01/20 04:31 01/01/20 04:31 MCV 83 fl (80-97) 01/01/20 04:31 MCH 28.7 pg (27.0-33.4) 01/01/20 04:31 MCHC 34.5 g/dL (32.0-36.0) 01/01/20 04:31 RDW 15.5 % (11.5-14.0) H 01/01/20 04:31 Seg Neutrophils % 86.0 % (42-78) H 12/25/19 05:06 Chloride 96 mmol/L (98-107) L 01/01/20 04:31 Carbon Dioxide 28 mmol/L (22-30) 01/01/20 04:31 Anion Gap 6 (5-19) 01/01/20 04:31 Est GFR ( Amer) > 60 (>60) 01/01/20 04:31 Est GFR (Non-Af Amer) Cancelled 12/24/19 15:01 Glucose 209 mg/dL (75-110) H 01/01/20 04:31 Calcium 9.0 mg/dL (8.4-10.2) 01/01/20 04:31 Phosphorus 3.2 mg/dL (2.5-4.5) 12/25/19 05:06 Magnesium 1.5 mg/dL (1.6-2.3) L 12/25/19 05:06 Ferritin 581.00 ng/mL (11.1-264.0) H 12/26/19 05:14 Total Bilirubin 0.6 mg/dL (0.2-1.3) 12/24/19 16:25 AST 84 U/L (14-36) H 12/24/19 16:25 Alkaline Phosphatase 69 U/L (38-126) 12/24/19 16:25 C-Reactive Protein 132.7 mg/L (<10.0) H 12/26/19 05:14 Total Protein 7.9 g/dL (6.3-8.2) 12/24/19 16:25 Albumin 4.4 g/dL (3.5-5.0) 12/24/19 16:25 Triglycerides 105 mg/dL (<150) 12/25/19 05:06 Cholesterol 122.99 mg/dL (0-200) 12/25/19 05:06 LDL Cholesterol Direct 46 mg/dL (<100) 12/25/19 05:06 VLDL Cholesterol 21.0 mg/dL (10-31) 12/25/19 05:06 HDL Cholesterol 52 mg/dL (>40) 12/25/19 05:06 TSH 0.13 uIU/mL (0.47-4.68) L 12/25/19 05:06 Free T4 1.45 ng/dL (0.78-2.19) 12/25/19 05:06 Free T3 pg/mL 1.81 pg/mL (2.77-5.27) L 12/25/19 05:06 Urine Color YELLOW 12/29/19 03:30 Urine Appearance CLEAR 12/29/19 03:30 Urine pH 6.0 (5.0-9.0) 12/29/19 03:30 Ur Specific [place] 1.038 12/29/19 03:30 Urine Protein 100 mg/dL (NEGATIVE) H 12/29/19 03:30 Urine Glucose (UA) 50 mg/dL (NEGATIVE) H 12/29/19 03:30 Urine Ketones NEGATIVE mg/dL (NEGATIVE) 12/29/19 03:30 Urine Blood NEGATIVE (NEGATIVE) 12/29/19 03:30 Urine Nitrite NEGATIVE (NEGATIVE) 12/29/19 03:30 Ur Leukocyte Esterase NEGATIVE (NEGATIVE) 12/29/19 03:30 Urine WBC (Auto) 1 /HPF 12/29/19 03:30 Urine RBC (Auto) 1 /HPF 12/29/19 03:30 Current Medication List Generic Name Dose Route Start Last Admin Trade Name Freq PRN Reason Stop Dose Admin Acetaminophen 650 mg 12/24/19 19:19 Tylenol 325 Mg Tablet PO 01/23/20 19:18 Q4HP PRN FOR PAIN OR TEMP Al Hydrox/Mg Hydrox/Simethicone 15 ml 12/24/19 19:19 Maalox Plus Susp 30 Udcup PO 01/23/20 19:18 Q6HP PRN HEARTBURN Albuterol 2 puff 12/24/19 19:48 Proair Hfa Inhalation Aerosol 8.5 Gm Mdi IH 01/23/20 19:47 Q4HP PRN WHEEZING Apixaban 5 mg 12/29/19 18:00 12/31/19 17:06 Eliquis 5 Mg Tablet PO 01/28/20 17:59 5 mg BID FERNY Administration Ascorbic Acid 500 mg 12/25/19 10:00 12/31/19 17:06 Vitamin C 500 Mg Tablet PO 01/24/20 09:59 500 mg BID FERNY Administration Aspirin 81 mg 12/26/19 10:00 12/31/19 09:53 Ecotrin 81 Mg Ec Tablet PO 01/25/20 09:59 81 mg DAILY FERNY Administration Atorvastatin Calcium 80 mg 12/31/19 22:00 12/31/19 21:59 Lipitor 80 Mg Tablet PO 01/30/20 21:59 80 mg QHS FERNY Administration Calcium Carbonate 1 tab 12/25/19 22:00 12/31/19 21:58 Caltrate 600-Vit D3 400 Tablet PO 01/24/20 21:59 1 tab QHS FERNY Administration Cetirizine HCl 10 mg 12/25/19 20:25 Zyrtec 10 Mg Tablet PO 01/24/20 20:24 HSP PRN FOR ALLERGIES Cholecalciferol 2,000 unit 12/25/19 10:00 12/31/19 09:52 Vitamin D3 1000 Unit Tablet PO 01/24/20 09:59 2,000 unit DAILY FERNY Administration Citalopram Hydrobromide 10 mg 12/26/19 10:00 12/31/19 09:53 Celexa 20 Mg Tablet PO 01/25/20 09:59 10 mg DAILY FERNY Administration Dextrose 12.5 gm 12/24/19 19:39 12/31/19 05:38 Dextrose Inj 50% Syringe (25 Gm/50 Ml) IV 01/23/20 19:38 12.5 gm PRN PRN Administration FOR BG 50-69 IN ALERT PATIENT Protocol Dextrose 25 gm 12/24/19 19:39 Dextrose Inj 50% Syringe (25 Gm/50 Ml) IV 01/23/20 19:38 PRN PRN PER PROTOCOL Protocol Folic Acid 1 mg 12/26/19 10:00 12/31/19 09:53 Folvite 1 Mg Tablet PO 01/25/20 09:59 1 mg DAILY FERNY Administration Glucagon 1 mg 12/24/19 19:39 Glucagen Inj 1 Mg Vial IM 01/23/20 19:38 PRN PRN Evaluate for BG < 70 Protocol Glucose 15 gm 12/24/19 19:39 Glutose 40% Gel 15 Gm Tube PO 01/23/20 19:38 PRN PRN FOR BG 50-69 IN ALERT PATIENT Protocol Glucose 30 gm 12/24/19 19:39 Glutose 40% Gel 15 Gm Tube PO 01/23/20 19:38 PRN PRN FOR BG < 50 IN ALERT PATIENT Protocol Hydroxyzine Pamoate 25 mg 12/26/19 16:16 Vistaril 25 Mg Capsule PO 01/25/20 16:15 Q8HP PRN ANXIETY Insulin Human Lispro 0 - 12 unit 12/25/19 16:00 12/31/19 21:57 Humalog Insulin 100 Unit/1 Ml 3 Ml Vial SUBCUT 01/24/20 15:59 12 unit ACHS FERNY Administration Protocol Insulin Human NPH 25 unit 12/26/19 09:00 12/31/19 07:39 Humulin N (Nph) Insulin 100 Unit/1 Ml 3 Ml SUBCUT 01/25/20 08:59 Not Given QA FERNY Insulin Human NPH 20 unit 12/26/19 22:00 12/31/19 21:58 Humulin N (Nph) Insulin 100 Unit/1 Ml 3 Ml SUBCUT 01/25/20 21:59 20 unit QHS FERNY Administration Levothyroxine Sodium 0.075 mg 12/26/19 08:30 01/01/20 05:19 Synthroid 0.075 Mg Tablet PO 01/25/20 08:29 0.075 mg [id number]@0600 FERNY Administration Levothyroxine Sodium 0.088 mg 12/29/19 06:00 12/30/19 07:00 Synthroid 0.088 Mg Tablet PO 01/28/20 05:59 0.088 mg SuSa@0600 FERNY Administration Lisinopril 10 mg 12/29/19 10:00 12/31/19 09:52 Prinivil 10 Mg Tablet PO 01/28/20 09:59 10 mg DAILY FERNY Administration Melatonin 6 mg 12/24/19 22:00 12/31/19 21:58 Melatonin 3 Mg Tablet PO 01/23/20 21:59 6 mg QHS FERNY Administration Metoprolol Tartrate 100 mg 12/30/19 10:00 12/31/19 21:58 Lopressor 100 Mg Tablet PO 01/29/20 09:59 100 mg Q12 FERNY Administration Metoprolol Tartrate 2.5 mg 12/30/19 18:26 12/30/19 18:57 Lopressor Inj/Pf 5 Mg/5 Ml Sdv IV 01/29/20 18:25 2.5 mg Q6HP PRN Administration Sustained HR >140 Multivitamins 1 tab 12/26/19 10:00 12/31/19 09:53 Tab-A-Mirella (Multiple Vitamin) Tablet PO 01/25/20 09:59 1 tab DAILY FERNY Administration Pantoprazole Sodium 40 mg 12/26/19 17:00 01/01/20 05:[address] Tablet PO 01/25/20 16:59 40 mg BID@0600,1700 FERNY Administration Promethazine HCl 12.5 mg 12/31/19 14:30 Phenergan Inj 25 Mg/1 Ml Vial IV 01/23/20 19:18 Q4HP PRN FOR NAUSEA/VOMITING Sodium Chloride 2.5 ml 12/24/19 22:00 01/01/20 05:17 Saline Flush 2.5 Ml Monoject Prefil Syrin IV 01/23/20 21:59 Not Given Q8 FERNY Zinc Sulfate 220 mg 12/25/19 10:00 12/31/19 09:52 Zinc-220 Capsule PO 01/24/20 09:59 220 mg DAILY FERNY Administration Zolpidem Tartrate 5 mg 12/26/19 16:16 Ambien 5 Mg Tablet PO 01/02/20 16:15 HSP PRN SLEEP OR INSOMNIA Discontinued Medications Generic Name Dose Route Start Last Admin Trade Name Freq PRN Reason Stop Dose Admin Albuterol 2.5 mg 12/24/19 19:19 Ventolin 0.083% Neb 2.5 Mg/3 Ml Ampul NEB 01/23/20 19:18 RTQ4HP PRN SHORTNESS OF BREATH Amlodipine Besylate 5 mg 12/26/19 10:00 Norvasc 5 Mg Tablet PO 01/25/20 09:59 DAILY FERNY Amlodipine Besylate 10 mg 12/26/19 10:00 12/30/19 10:59 Norvasc 10 Mg Tablet PO 01/25/20 09:59 Not Given DAILY FERNY Aspirin 81 mg 12/24/19 22:00 12/24/19 22:16 Ecotrin 81 Mg Ec Tablet PO 12/24/19 23:00 81 mg QHS FERNY Administration Atenolol 100 mg 12/26/19 10:00 12/27/19 09:42 Tenormin 50 Mg Tablet PO 01/25/20 09:59 100 mg DAILY FERNY Administration Atorvastatin Calcium 40 mg 12/24/19 22:00 12/24/19 22:28 Lipitor 40 Mg Tablet PO 12/24/19 23:00 40 mg QHS FERNY Administration Atorvastatin Calcium 20 mg 12/25/19 22:00 12/27/19 22:12 Lipitor 20 Mg Tablet PO 01/24/20 21:59 20 mg QHS FERNY Administration Atorvastatin Calcium 80 mg 12/28/19 22:00 12/30/19 23:26 Lipitor 20 Mg Tablet PO 01/27/20 21:59 80 mg QHS FERNY Administration Azithromycin 500 mg 12/24/19 18:01 12/24/19 18:35 Zithromax 250 Mg Tablet PO 12/24/19 18:02 500 mg NOW ONE Administration Azithromycin 250 mg 12/25/19 18:00 12/27/19 17:33 Zithromax 250 Mg Tablet PO 01/01/20 17:59 250 mg QPM FERNY Administration Dexamethasone Sodium Phosphate 2 mg 12/24/19 22:00 12/26/19 13:35 Decadron Inj 4 Mg/Ml Vial IV 01/23/20 21:59 2 mg Q8 FERNY Administration Dexamethasone Sodium Phosphate 2 mg 12/26/19 22:00 12/27/19 09:44 Decadron Inj 4 Mg/Ml Vial IV 01/25/20 21:59 2 mg Q12 FERNY Administration Diltiazem HCl 20 mg 12/25/19 11:21 12/25/19 11:44 Cardizem Inj 25 Mg/5 Ml Vial IV 12/25/19 11:22 20 mg NOW ONE Administration Diltiazem HCl 20 mg 12/27/19 11:30 12/27/19 12:08 Cardizem Inj 25 Mg/5 Ml Vial IV 12/27/19 11:31 Not Given NOW ONE Diltiazem HCl 25 mg 12/28/19 07:00 12/28/19 06:59 Cardizem Inj 25 Mg/5 Ml Vial IV 12/28/19 07:01 25 mg NOW ONE Administration Diltiazem HCl Confirm 12/28/19 06:53 12/28/19 07:54 Cardizem Inj 25 Mg/5 Ml Vial Administered 12/28/19 06:54 Not Given Dose 25 mg .ROUTE .STK-MED ONE Diltiazem HCl Confirm 12/31/19 13:50 Cardizem Inj 25 Mg/5 Ml Vial Administered 12/31/19 13:51 Dose 25 mg .ROUTE .STK-MED ONE Enoxaparin Sodium 80 mg 12/24/19 22:00 12/29/19 09:13 Lovenox Inj 80 Mg/0.8 Ml Disp.Syrin SUBCUT 01/23/20 21:59 80 mg Q12 FERNY Administration Hydralazine HCl 25 mg 12/26/19 10:00 12/28/19 10:00 Apresoline 25 Mg Tablet PO 01/25/20 09:59 Not Given Q12 FERNY Hydrochlorothiazide 12.5 mg 12/26/19 10:00 12/29/19 09:14 Hydrodiuril 12.5 Mg Tablet PO 01/25/20 09:59 12.5 mg DAILY FRENY Administration Sodium Chloride 1,000 mls @ 0 mls/hr 12/24/19 18:01 12/24/19 19:36 Nacl 0.9% 1000 Ml Iv Soln IV 12/24/19 18:02 Infused BOLUS ONE Infusion Wide Open Ceftriaxone Sodium/Dextrose 2 gm in 50 mls @ 100 mls/hr 12/24/19 18:01 12/24/19 19:07 Rocephin Rtu 2 Gm/D5w 50 Ml Premix Bag IV 12/24/19 18:30 Infused NOW ONE Infusion Ceftriaxone Sodium/Dextrose 1 gm in 50 mls @ 100 mls/hr 12/25/19 10:00 12/26/19 10:49 Rocephin Rtu 1 Gm/D5w 50 Ml Premix IV 01/01/20 09:59 Infused DAILY FERNY Infusion Insulin Human Lispro 16 unit 12/25/19 12:30 12/25/19 12:24 Humalog Insulin 100 Unit/1 Ml 3 Ml Vial SUBCUT 12/25/19 12:31 16 unit NOW ONE Administration Insulin Human Lispro Confirm 12/25/19 22:21 12/25/19 22:27 Humalog Insulin 100 Unit/1 Ml 3 Ml Vial Administered 12/25/19 22:22 Not Given Dose 1 unit .ROUTE .STK-MED ONE Insulin Human Lispro 15 unit 12/25/19 22:30 12/25/19 22:38 Humalog Insulin 100 Unit/1 Ml 3 Ml Vial SUBCUT 12/25/19 22:31 15 unit NOW ONE Administration Insulin Human Lispro 20 unit 12/26/19 13:30 12/26/19 13:34 Humalog Insulin 100 Unit/1 Ml 3 Ml Vial SUBCUT 12/26/19 13:31 20 unit NOW ONE Administration Insulin Human Lispro 20 unit 12/26/19 14:00 12/26/19 13:41 Humalog Insulin 100 Unit/1 Ml 3 Ml Vial SUBCUT 12/26/19 14:01 20 unit NOW ONE Administration Insulin Human NPH 20 unit 12/26/19 18:00 Humulin N (Nph) Insulin 100 Unit/1 Ml 3 Ml SUBCUT 01/25/20 17:59 QPM [facility] Insulin Human Regular 0 - 12 unit 12/24/19 22:00 12/25/19 11:37 Humulin R (Pyxis) Insulin 100 Unit/Ml 3ml SUBCUT 01/23/20 21:59 Not Given [facility] Protocol Insulin Human Regular 4 unit 12/25/19 10:30 12/25/19 09:45 Humulin R (Pyxis) Insulin 100 Unit/Ml 3ml SUBCUT 12/25/19 10:31 4 unit NOW ONE Administration Levothyroxine Sodium 0.075 mg 12/26/19 10:00 Synthroid 0.075 Mg Tablet PO 01/25/20 09:59 MOTUWETHFR@1000 [facility] Levothyroxine Sodium 0.088 mg 12/29/19 10:00 Synthroid 0.088 Mg Tablet PO 01/28/20 09:59 SUSA@1000 [facility] Lidocaine HCl Confirm 12/31/19 13:34 Xylocaine 2% Inj-Pf (100 Mg/5ml) Syringe Administered 12/31/19 13:35 Dose 100 mg .ROUTE .STK-MED ONE Lisinopril 10 mg 12/24/19 22:00 12/24/19 22:31 Prinivil 10 Mg Tablet PO 12/24/19 23:00 10 mg DAILY [facility] Administration Lisinopril 20 mg 12/26/19 10:00 12/28/19 10:01 Prinivil 10 Mg Tablet PO 01/25/20 09:59 Not Given DAILY FERNY Metoprolol Succinate 100 mg 12/30/19 10:00 Toprol Xl 50 Mg Tab.Sr PO 01/29/20 09:59 Q12 FERNY Metoprolol Tartrate 25 mg 12/27/19 12:00 12/28/19 17:03 Lopressor 25 Mg Tablet PO 01/26/20 11:59 25 mg Q6 FERNY Administration Metoprolol Tartrate Confirm 12/28/19 06:13 12/28/19 06:18 Lopressor Inj/Pf 5 Mg/5 Ml Sdv Administered 12/28/19 06:14 5 mg Dose Administration 5 mg IV .STK-MED ONE Metoprolol Tartrate 5 mg 12/28/19 06:45 12/28/19 07:54 Lopressor Inj/Pf 5 Mg/5 Ml Sdv IV 12/28/19 06:46 Not Given NOW ONE Metoprolol Tartrate 50 mg 12/28/19 18:00 12/30/19 06:57 Lopressor 50 Mg Tablet PO 01/27/20 17:59 50 mg Q6 FERNY Administration Prednisone 60 mg 12/28/19 10:00 12/29/19 09:15 Deltasone 20 Mg Tablet PO 01/27/20 09:59 60 mg DAILY FERNY Administration Prednisone 40 mg 12/30/19 10:00 12/31/19 09:52 Deltasone 20 Mg Tablet PO 01/29/20 09:59 40 mg DAILY FERNY Administration Promethazine HCl 12.5 mg 12/24/19 19:19 12/28/19 05:55 Phenergan Inj 25 Mg/1 Ml Vial IV 01/23/20 19:18 12.5 mg Q4HP PRN Administration FOR NAUSEA/VOMITING Propofol Confirm 12/31/19 13:34 Diprivan Inj 200 Mg/20 Ml Vial Administered 12/31/19 13:35 Dose 200 mg IV .STK-MED ONE Assessment & Plan - Diagnosis (1) Atrial fibrillation with RVR Is this a current diagnosis for this admission?: Yes Plan: Status post successful EL guided cardioversion and maintaining sinus rhythm. As [id number] she had been in sinus bradycardia and asymptomatic. Recommendations: -Given her bradycardia I will decrease her Lopressor to 50 mg p.o. twice daily. -Continue with Eliquis 5 mg p.o. twice daily. -The patient may be discharged from the cardiovascular standpoint. -I will arrange for outpatient follow-up with my partner, Dr. Brothers. (2) Coronary artery disease Qualifiers: Coronary Disease-Associated Artery/Lesion type: [place] artery [place] vs. transplanted heart: [place] heart Associated angina: without angina Qualified Code(s): I25.10 - Atherosclerotic heart disease of [place] coronary artery without angina pectoris Is this a current diagnosis for this admission?: Yes (3) Hypertension Qualifiers: Hypertension type: essential hypertension Qualified Code(s): I10 - Essential (primary) hypertension Is this a current diagnosis for this admission?: Yes
[2020-01-01] MEDS: ZINC SULFATE 220 MG CAPSULE PO SCH (09:03)
[2020-01-01] MEDS: CHOLECALCIFEROL (D3) 1,000 UNIT (25 MCG) TABLET PO SCH (09:03)
[2020-01-01] MEDS: ASPIRIN 81 MG TABLET, ENT COATED PO SCH (09:03)
[2020-01-01] MEDS: APIXABAN 5 MG TABLET PO SCH (09:03)
[2020-01-01] MEDS: CITALOPRAM HYDROBROMIDE 20 MG TABLET PO SCH (09:04)
[2020-01-01] MEDS: FOLIC ACID 1 MG TABLET PO SCH (09:04)
[2020-01-01] MEDS: ASCORBIC ACID 500 MG TABLET PO SCH (09:04)
[2020-01-01] MEDS: INSULIN NPH (ISOPHANE), HUMAN 100 UNIT/ML 3 ML SUBCUT SCH (09:06)
[2020-01-01] MEDS: INSULIN LISPRO 100 UNIT/ML 3 ML VIAL SUBCUT SCH ×2 (09:06→13:47)
[2020-01-01] MEDS: LISINOPRIL 10 MG TABLET PO SCH (09:11)
[2020-01-01] MEDS: METOPROLOL TARTRATE 100 MG TABLET PO SCH (09:11)
[2020-01-01] MEDS: MULTIVITAMIN TABLET PO SCH (09:11)
--- NOTE | 2020-01-01 12:40 | PDOC DISCHARGE SUMMARY ---
Impression - Admit/DC Date/PCP Admission Date/Primary Care Provider: 12/24/19 19:30 PRINCE GTZ MD Discharge Date: 01/01/20 - Discharge Diagnosis (1) Suspected COVID-19 virus infection Is this a current diagnosis for this admission?: Yes (2) Fever Is this a current diagnosis for this admission?: Yes (3) Elevated liver function tests Is this a current diagnosis for this admission?: Yes (4) Elevated d-dimer Is this a current diagnosis for this admission?: Yes (5) COPD (chronic obstructive pulmonary disease) with chronic bronchitis Is this a current diagnosis for this admission?: Yes (6) Coronary artery disease Is this a current diagnosis for this admission?: Yes (7) Hyponatremia Is this a current diagnosis for this admission?: Yes (8) Hypertension Is this a current diagnosis for this admission?: Yes (9) Hypothyroidism, postsurgical Is this a current diagnosis for this admission?: Yes (10) Depression Is this a current diagnosis for this admission?: Yes (11) Diabetes mellitus Is this a current diagnosis for this admission?: Yes - Additional Information Resuscitation Status: Full Code Discharge Diet: Cardiac, Diabetic Discharge Activity: Activity As Tolerated, Balance Activity w/Rest, Slowly Increase Activity, No tub bath Referrals: PRINCE GTZ MD [Primary Care Provider] - 01/08/20 2:30 pm () ENRIQUE CLAY MD [ACTIVE STAFF] - 01/08/20 8:30 am ( ) JENNIFER VAUGHN MD [ACTIVE PROVISIONAL STAFF] - 01/14/20 1:00 pm (Follow-up 7 to 10 days) Prescriptions: Prednisone [Deltasone 20 mg Tablet] 60 mg PO DAILY #9 tablet Apixaban [Eliquis 5 mg Tablet] 5 mg PO BID 15 Days #30 tablet Albuterol Sulfate [Proair HFA Inhalation Aerosol 8.5 gm MDI] 2 puff IH Q4HP PRN #1 hfa.aer.ad PRN Reason: Pantoprazole Sodium [Protonix [address] Tablet] 40 mg PO QAM #30 tablet.dr Azithromycin [Zithromax 250 mg Tablet] 250 mg PO QPM #2 tablet Home Medications: Amlodipine Besylate [Norvasc 5 mg Tablet] 5 mg PO DAILY 12/24/19 Atorvastatin Calcium [Lipitor 20 mg Tablet] 20 mg PO QHS 12/24/19 Citalopram Hydrobromide [Celexa] 10 mg PO DAILY 12/24/19 Folic Acid [Folvite 1 mg Tablet] 1 mg PO DAILY 12/24/19 Hydralazine HCl [Apresoline 25 mg Tablet] 25 mg PO BID 12/24/19 Insulin Lispro [Humalog Kwikpen U-100] 15 unit SQ TID 12/24/19 Insulin NPH Human Isophane [Novolin N Flexpen] 20 unit SQ QPM 12/24/19 Insulin NPH Human Isophane [Novolin N Flexpen] 25 unit SQ QAM 12/24/19 Levothyroxine Sodium 88 mcg PO SUSA@1000 12/24/19 Albuterol Sulfate [Proair HFA Inhalation Aerosol 8.5 gm MDI] 2 puff IH Q6HP PRN 12/25/19 Aspirin [Aspir-Low] 81 mg PO DAILY 12/25/19 Bisoprolol Fumarate 10 mg PO DAILY 12/25/19 Calcium Carbonate/Vitamin D3 [Calcium 600-D3 20Mcg(800 Unit)] 1 tab PO QHS 12/25/19 Cetirizine HCl [Zyrtec] 10 mg PO HSP PRN 12/25/19 Levothyroxine Sodium [Levo-T] 75 mcg PO MOTUWETHFR@1000 12/25/19 Lisinopril/Hydrochlorothiazide [Lisinopril-Hctz 20-12.5 mg Tab] 1 each PO DAILY 12/25/19 Multivit with Calcium,Iron,Min [Multiple Vitamins For Women] 1 each PO DAILY 12/25/19 Acetaminophen [Tylenol 325 mg Tablet] 650 mg PO Q4HP PRN tablet 12/27/19 Albuterol Sulfate [Proair HFA Inhalation Aerosol 8.5 gm MDI] 2 puff IH Q4HP PRN #1 hfa.aer.ad 12/27/19 Azithromycin [Zithromax 250 mg Tablet] 250 mg PO QPM #2 tablet 12/27/19 Pantoprazole Sodium [Protonix [address] Tablet] 40 mg PO QAM #30 tablet.dr 12/27/19 Prednisone [Deltasone 20 mg Tablet] 60 mg PO DAILY #9 tablet 12/27/19 Apixaban [Eliquis 5 mg Tablet] 5 mg PO BID tablet 01/01/20 Apixaban [Eliquis 5 mg Tablet] 5 mg PO BID 15 Days #30 tablet 01/01/20 History of Present Illiness History of Present Illness: ALONZO DAWKINS is a 64 year old female with a history of coronary artery disease, COPD, hyperlipidemia, depression, diabetes mellitus and hyponatremia presents with several weeks of increasing shortness of breath. She states that she has been having a cough. Lately it is productive of white sputum. Until today she has been afebrile. She spiked a fever 103.1 F. In the emergency department her white blood cell count is normal at 5.8 but her differential is pending. Her d-dimer is elevated at 2.84 but her ferritin, LDH and C-reactive protein are all pending. Her serum sodium is 125. Her glucose is only 72. With the increasing shortness of breath and fever as well as increased d-dimer the patient has a CT angiogram of the chest pending. She states that she tested negative for Covid-19 at a walk-in clinic several days ago. She did state the result was negative however it has such a low sensitivity she has been tested again. Her chest x-ray is fairly unremarkable but this can be part of an initial presentation of Covid-19. She will be admitted to the hospitalist service. Covid-19 serology is pending. She will be placed on full-strength anticoagulation with her d-dimer above 1.0. LDH, ferritin and C-reactive protein are pending. She will be on a fluid restriction as her sodium is only 125. Hospital Course Hospital Course: (1) Atrial fibrillation with RVR Is this a current diagnosis for this admission?: Yes Plan: Improved rate control; not at goal. Atrial fibrillation with RVR. Cardiology was consulted; appreciate Dr. De Anda's assistance Continue metoprolol 100 mg every 12 hours. Continue Eliquis. Planned EL/Cardioversion by Dr. Costello today (2) COPD (chronic obstructive pulmonary disease) with chronic bronchitis Is this a current diagnosis for this admission?: Yes Plan: Stable and without exacerbation at this time. The patient reports COPD. She states that she has not had an exacerbation in a long time. She does have an albuterol rescue inhaler at home but has been not on any chronic daily inhaler therapy. She does not use oxygen at home. (3) Coronary artery disease Qualifiers: Coronary Disease-Associated Artery/Lesion type: [place] artery [place] vs. transplanted heart: [place] heart Associated angina: without angina Qualified Code(s): I25.10 - Atherosclerotic heart disease of [place] coronary artery without angina pectoris Is this a current diagnosis for this admission?: Yes Plan: The patient states that she had a stent placed approximately 10 years ago or more. She was following with cardiology but then decided to change practitioners. Continue aspirin and statin therapy. Antihypertensive as above. Cardiac diet. (4) Depression Qualifiers: Depression Type: unspecified Qualified Code(s): F32.9 - Major depressive disorder, single episode, unspecified Is this a current diagnosis for this admission?: Yes Plan: Home dose Celexa. Vistaril as needed anxiety (5) Diabetes mellitus Qualifiers: Diabetes mellitus type: type 1 Diabetes mellitus complication status: without complication Qualified Code(s): E10.9 - Type 1 diabetes mellitus without complications Is this a current diagnosis for this admission?: Yes Plan: Improved glucose control off steroids. A1c 6.4%. Resume home dose NPH. Accu-Cheks before meals and at bedtime with Humalog per sliding scale coverage. Hypoglycemia protocol. Cardiac/consistent carb diet. (6) Elevated d-dimer Is this a current diagnosis for this admission?: Yes Plan: CTA chest negative for pulmonary embolus. Improving; d-dimer down to 1.47 Now on Eliquis (7) Elevated liver function tests Is this a current diagnosis for this admission?: Yes Plan: Resolved. She reports rare to occasional glasses of wine. No other indication for elevated transaminases. (8) Fever Qualifiers: Fever type: unspecified Qualified Code(s): R50.9 - Fever, unspecified Is this a current diagnosis for this admission?: Yes Plan: Resolved. Blood cultures (1/4 bottles) shows coag negative staph; contaminant. Antibiotics as below (9) Hypertension Qualifiers: Hypertension type: essential hypertension Qualified Code(s): I10 - Essential (primary) hypertension Is this a current diagnosis for this admission?: Yes Plan: Well-controlled at present. Currently on metoprolol 100 mg every 12 and lisinopril 10 mg daily. Cardiac diet. (10) Hyponatremia Is this a current diagnosis for this admission?: Yes Plan: Sodium trending up; 125.3-> 122.5-> 125.1-> 132.7 Liberalize dietary sodium. Fluid restrict 1.2 L/daily Follow up chemistry. (11) Hypothyroidism, postsurgical Is this a current diagnosis for this admission?: Yes Plan: Continue home dose levothyroxine. (12) Suspected COVID-19 virus infection Is this a current diagnosis for this admission?: Yes Plan: Ruled Out Rapid and send out COVID-19 tests are negative. However, she has numerous laboratory results supportive of COVID-19 (elevated d- dimer, transaminases, CRP, LDH, ferritin) that can not be explained otherwise. CTA negative for pulmonary embolus and pneumonia. COPD exacerbation is not suspected (no wheezing on exam) and certainly would not be the cause of the above-mentioned laboratory changes. Chest U/S benign Chest CT w/ negative for acute findings; specifically no ground glass or infiltrates noted. D-dimer improved (1.47) CRP equivocal (132.7 Ferritin increased (581) LDH increased (289) Due to elevated d-dimer, she was placed on full dose Lovenox. Received 3 days of Rocephin Completed 5 day course of Azithromycin. Transitioned to p.o. prednisone; weaning Continue vitamin C, vitamin D, zinc, and melatonin supplementation. Encourage pulmonary toilet. Contact and droplet precautions. Patient and family with, understandable, high level of frustration/anxiety regarding unclear dx. Dr. Ly provided bedside eval w/ US. B lines noted; recommended follow up CT Chest to evaluate for ground glass changes. As both are negative, effectively r/o COVID. Physical Exam Vital Signs: Temp Pulse Resp BP Pulse Ox 98.1 F 55 L 17 135/83 H 100 01/01/20 08:09 01/01/20 08:09 01/01/20 08:09 01/01/20 08:09 01/01/20 08:09 Intake & Output 12/31/19 01/01/20 01/02/20 06:59 06:59 06:59 Intake Total 1440 1740 Balance 1440 1740 Weight 75.1 kg 75.1 kg General appearance: PRESENT: no acute distress, cooperative, well-developed Respiratory exam: PRESENT: clear to auscultation luz maria, symmetrical, unlabored. ABSENT: rales, rhonchi, tachypnea, wheezes Cardiovascular exam: PRESENT: RRR - Borderline bradycardia, +S1, +S2 GI/Abdominal exam: PRESENT: normal bowel sounds, soft. ABSENT: tenderness Extremities exam: ABSENT: pedal edema Neurological exam: PRESENT: alert, awake, oriented to person, oriented to place, oriented to time, oriented to situation, CN II-XII grossly intact. ABSENT: altered Psychiatric exam: PRESENT: appropriate affect. ABSENT: agitated, anxious Results Laboratory Results: WBC 9.7 10^3/uL (4.0-10.5) 01/01/20 04:31 RBC 3.31 10^6/uL (3.72-5.28) L 01/01/20 04:31 Hgb 9.5 g/dL (12.0-15.5) L 01/01/20 04:31 Hct 27.5 % (36.0-47.0) L 01/01/20 04:31 MCV 83 fl (80-97) 01/01/20 04:31 MCH 28.7 pg (27.0-33.4) 01/01/20 04:31 MCHC 34.5 g/dL (32.0-36.0) 01/01/20 04:31 RDW 15.5 % (11.5-14.0) H 01/01/20 04:31 Plt Count 212 10^3/uL (150-450) 01/01/20 04:31 Lymph % (Auto) 8.5 % (13-45) L 12/25/19 05:06 [place] % (Auto) 4.9 % (3-13) 12/25/19 05:06 Eos % (Auto) 0.2 % (0-6) 12/25/19 05:06 Baso % (Auto) 0.4 % (0-2) 12/25/19 05:06 Absolute Neuts (auto) 3.9 10^3/uL (1.7-8.2) 12/25/19 05:06 Absolute Lymphs (auto) 0.4 10^3/uL (0.5-4.7) L 12/25/19 05:06 Absolute Monos (auto) 0.2 10^3/uL (0.1-1.4) 12/25/19 05:06 Absolute Eos (auto) 0.0 10^3/uL (0.0-0.6) 12/25/19 05:06 Absolute Basos (auto) 0.0 10^3/uL (0.0-0.2) 12/25/19 05:06 Total Counted 100 12/24/19 16:25 Seg Neutrophils % 86.0 % (42-78) H 12/25/19 05:06 Seg Neuts % (Manual) 86 % (42-78) H 12/24/19 16:25 Lymphocytes % (Manual) 9 % (13-45) L 12/24/19 16:25 Monocytes % (Manual) 5 % (3-13) 12/24/19 16:25 Eosinophils % (Manual) 0 % (0-6) 12/24/19 16:25 Basophils % (Manual) 0 % (0-2) 12/24/19 16:25 Abs Neuts (Manual) 5.0 10^3/uL (1.7-8.2) 12/24/19 16:25 Abs Lymphs (Manual) 0.5 10^3/uL (0.5-4.7) 12/24/19 16:25 Abs Monocytes (Manual) 0.3 10^3/uL (0.1-1.4) 12/24/19 16:25 Absolute Eos (Manual) 0.0 10^3/uL (0.0-0.6) 12/24/19 16:25 Abs Basophils (Manual) 0.0 10^3/uL (0.0-0.2) 12/24/19 16:25 Toxic Vacuolation PRESENT 12/24/19 16:25 Platelet Estimate FACILITY SALES AND ADMIN 12/24/19 15:01 Platelet Comment DECREASED 12/24/19 16:25 Anisocytosis SLIGHT 12/24/19 16:25 [place] Cells SLIGHT 12/24/19 16:25 D-Dimer 1.47 ug/mL (0.00-0.50) H 12/26/19 05:14 Sodium 129.8 mmol/L (137-145) L 01/01/20 04:31 Potassium 4.3 mmol/L (3.6-5.0) 01/01/20 04:31 Chloride 96 mmol/L (98-107) L 01/01/20 04:31 Carbon Dioxide 28 mmol/L (22-30) 01/01/20 04:31 Anion Gap 6 (5-19) 01/01/20 04:31 BUN 29 mg/dL (7-20) H 01/01/20 04:31 Creatinine 0.97 mg/dL (0.52-1.25) 01/01/20 04:31 Est GFR ( Amer) > 60 (>60) 01/01/20 04:31 Est GFR (Non-Af Amer) Cancelled 12/24/19 15:01 Est GFR (MDRD) Non-Af 57 (>60) L 01/01/20 04:31 Glucose 209 mg/dL (75-110) H 01/01/20 04:31 POC Glucose 192 mg/dL (70-110) H 01/01/20 08:10 Hemoglobin A1c % 6.4 % (4.7-6.0) H 12/25/19 05:06 Calcium 9.0 mg/dL (8.4-10.2) 01/01/20 04:31 Phosphorus 3.2 mg/dL (2.5-4.5) 12/25/19 05:06 Magnesium 1.5 mg/dL (1.6-2.3) L 12/25/19 05:06 Ferritin 581.00 ng/mL (11.1-264.0) H 12/26/19 05:14 Total Bilirubin 0.6 mg/dL (0.2-1.3) 12/24/19 16:25 Direct Bilirubin 0.0 mg/dL (0.0-0.4) 12/24/19 16:25 Neonat Total Bilirubin Not Reportable 12/24/19 16:25 Neonat Direct Bilirubin Not Reportable 12/24/19 16:25 Neonat Indirect Bili Not Reportable 12/24/19 16:25 AST 84 U/L (14-36) H 12/24/19 16:25 ALT 45 U/L (<35) H 12/24/19 16:25 Alkaline Phosphatase 69 U/L (38-126) 12/24/19 16:25 Lactate Dehydrogenase 289 U/L (120-246) H 12/26/19 05:14 C-Reactive Protein 132.7 mg/L (<10.0) H 12/26/19 05:14 Total Protein 7.9 g/dL (6.3-8.2) 12/24/19 16:25 Albumin 4.4 g/dL (3.5-5.0) 12/24/19 16:25 Triglycerides 105 mg/dL (<150) 12/25/19 05:06 Cholesterol 122.99 mg/dL (0-200) 12/25/19 05:06 LDL Cholesterol Direct 46 mg/dL (<100) 12/25/19 05:06 VLDL Cholesterol 21.0 mg/dL (10-31) 12/25/19 05:06 HDL Cholesterol 52 mg/dL (>40) 12/25/19 05:06 EGFR Cancelled 12/24/19 15:01 TSH 0.13 uIU/mL (0.47-4.68) L 12/25/19 05:06 Free T4 1.45 ng/dL (0.78-2.19) 12/25/19 05:06 Free T3 pg/mL 1.81 pg/mL (2.77-5.27) L 12/25/19 05:06 Urine Color YELLOW 12/29/19 03:30 Urine Appearance CLEAR 12/29/19 03:30 Urine pH 6.0 (5.0-9.0) 12/29/19 03:30 Ur Specific [place] 1.038 12/29/19 03:30 Urine Protein 100 mg/dL (NEGATIVE) H 12/29/19 03:30 Urine Glucose (UA) 50 mg/dL (NEGATIVE) H 12/29/19 03:30 Urine Ketones NEGATIVE mg/dL (NEGATIVE) 12/29/19 03:30 Urine Blood NEGATIVE (NEGATIVE) 12/29/19 03:30 Urine Nitrite NEGATIVE (NEGATIVE) 12/29/19 03:30 Urine Nitrite (Reflex) NEGATIVE (NEGATIVE) 12/25/19 20:55 Urine Bilirubin NEGATIVE (NEGATIVE) 12/29/19 03:30 Urine Urobilinogen NEGATIVE mg/dL (<2.0) 12/29/19 03:30 Ur Leukocyte Esterase NEGATIVE (NEGATIVE) 12/29/19 03:30 Leukocyte Esterase Rfl NEGATIVE (NEGATIVE) 12/25/19 20:55 Urine WBC (Auto) 1 /HPF 12/29/19 03:30 Urine RBC (Auto) 1 /HPF 12/29/19 03:30 U Hyaline Cast (Auto) 4 /LPF 12/25/19 20:55 Urine WBC (Reflex) 1 /HPF 12/25/19 20:55 Squamous Epi Cells Auto <1 /HPF 12/29/19 03:30 Urine Mucus (Auto) RARE /LPF 12/29/19 03:30 Urine Sodium 15 mmol/L (30-90) L 12/26/19 22:10 Urine Ascorbic Acid 40 (NEGATIVE) H 12/29/19 03:30 COVID-19 Source NASOPHARYNGEAL 12/25/19 10:35 COVID-19 (SEVERO) NOT DETECTED 12/25/19 10:35 SARS-CoV-2 (PCR) NEGATIVE (NEGATIVE) 12/24/19 13:30 Slides for Path Review FACILITY SALES AND ADMIN 12/24/19 15:01 Impressions: Chest X-Ray 12/24/19 15:20 IMPRESSION: COPD. NO ACUTE RADIOGRAPHIC FINDING IN THE CHEST. Chest/Abdomen CTA 12/24/19 18:00 IMPRESSION: Mild emphysema. Chest CT 12/28/19 00:00 IMPRESSION: No acute abnormality within the chest. Subacute fracture involving the left anterior fifth rib. 3.0 mm solid pulmonary nodule within the upper lobe. If patient is low risk for malignancy, no routine follow-up imaging is recommended; if patient is high risk for malignancy, a non-contrast Chest CT at 12 months is optional. If performed and the nodule is stable at 12 months, no further follow-up is recommended. These guidelines do not apply to immunocompromised patients and patients with cancer. Follow up in patients with significant comorbidities as clinically warranted. For lung cancer screening, adhere to Lung-RADS guidelines. Reference: Radiology. 2017; 284(1):228-43. Splenic varices with splenorenal shunt. TECHNICAL DOCUMENTATION: Quality ID # [id number]: Final reports with documentation of one or more dose reduction techniques (e.g., Automated exposure control, adjustment of the mA and/or kV according to patient size, use of iterative reconstruction technique) copyright 2011 [employer]- All Rights Reserved Chest X-Ray 12/28/19 00:00 IMPRESSION: No interval change in the chest. 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
[2020-01-01 14:51] VITALS: BP 140/67
== END 2020-01-01 15:44 | disposition home or self-care (01) | DRG 178 ==
LOC: ER 12:11 → EH 19:30 → 5 12-25 08:41
PROVIDERS: ADMIT Hospitalist; ATTEND Internal Medicine
PROC: B24BZZZ Ultrasonography of Heart with Aorta (ICD-10-PCS; 2019-12-27)
PROC: B24BZZ4 Ultrasonography of Heart with Aorta, Transesophageal (ICD-10-PCS; 2019-12-31)
PROC: 5A2204Z Restoration of Cardiac Rhythm, Single (ICD-10-PCS; principal; 2019-12-31 13:30)
DX: U07.1 COVID-19 (principal); E87.1 Hypo-osmolality and hyponatremia; R50.9 Fever, unspecified; I48.0 Paroxysmal atrial fibrillation; E10.22 Type 1 diabetes mellitus with diabetic chronic kidney disease; I12.9 Hypertensive chronic kidney disease with stage 1 through stage 4 chronic kidney disease, or unspecified chronic kidney disease; N18.9 Chronic kidney disease, unspecified; J44.9 Chronic obstructive pulmonary disease, unspecified; E78.5 Hyperlipidemia, unspecified; R79.89 Other specified abnormal findings of blood chemistry; I25.10 Atherosclerotic heart disease of native coronary artery without angina pectoris; E89.0 Postprocedural hypothyroidism; R06.02 Shortness of breath; R05 Cough; R79.1 Abnormal coagulation profile; R74.0 Nonspecific elevation of levels of transaminase and lactic acid dehydrogenase [LDH]; F32.9 Major depressive disorder, single episode, unspecified; Z79.4 Long term (current) use of insulin; Z79.51 Long term (current) use of inhaled steroids; Z79.82 Long term (current) use of aspirin; Z88.2 Allergy status to sulfonamides; Z87.891 Personal history of nicotine dependence; Z95.5 Presence of coronary angioplasty implant and graft; Z90.49 Acquired absence of other specified parts of digestive tract; Z82.49 Family history of ischemic heart disease and other diseases of the circulatory system; Z83.3 Family history of diabetes mellitus; Z79.890 Hormone replacement therapy
CPT/HCPCS: 36415; 410; 71045; 71260; 71275; 80048; 80061; 81001; 82728; 82962; 83036; 83615; 83735; 84100; 84300; 84439; 84443; 84481; 85025; 85027; 85379; 86140; 87040; 87070; 87077; 87150; 87186; 87205; 87635; 93005; 93010; 93306; 93312; 93325; 94667; 94799; 96365; 99285; C9803; J0696; J1100; J1650; J1815; J2001; J2550; J2704; J3490; J7030; J7512

== ENCOUNTER 2020-01-07 11:26 | Inpatient (IN) | payer OTHER, MEDICARE ==
[2020-01-07] MEDS ORDERED: ASPIRIN 81 MG TABLET, CHEWABLE PO ONE (11:49)
--- NOTE | 2020-01-07 11:51 | ER Document Report ---
ED Medical Screen (RME) - General Chief Complaint: Dizziness Stated Complaint: DIZZINESS Time Seen by Provider: 01/07/20 11:46 Primary Care Provider: PRINCE GTZ MD [Primary Care Provider] - Follow up as needed Mode of Arrival: Carried Information source: Patient Notes: 64-year-old female presented to ED after fainting in the shower. Patient states she was in the hospital last week got out on Tuesday diagnosed with A. fib on Tuesday states they got her A. fib back into rhythm discharged on Tuesday she was going good Tuesday then she started getting fatigue nauseated yesterday she became more fatigued and nauseated have a hard time holding her urine this morning she fainted in the shower and fell. She is a type I diabetic and is having a hard time holding her urine. TRAVEL OUTSIDE OF THE [place] IN LAST 30 DAYS: No - Related Data Allergies/Adverse Reactions: Sulfa (Sulfonamide Antibiotics) Allergy (Verified 01/07/20 11:45) Past Medical History - Past Medical History Cardiac Medical History: Reports: Hx Coronary Artery Disease - 1 stent, Hx Hypercholesterolemia, Hx Hypertension Pulmonary Medical History: Reports: Hx COPD Endocrine Medical History: Reports: Hx Diabetes Mellitus Type 1 - Per the patient., Hx Hypothyroidism Malignancy Medical History: Denies: Hx Breast Cancer, Hx Colorectal Cancer, Hx Liver Cancer, Hx Lung Cancer GI Medical History: Denies: Hx Cirrhosis, Hx Gastroesophageal Reflux Disease, Hx Hiatal Hernia Musculoskeltal Medical History: Denies Hx Fibromyalgia Skin Medical History: Denies Hx Eczema, Denies Hx Psoriasis Psychiatric Medical History: Reports: Hx Depression Past Surgical History: Reports: Hx Appendectomy, Hx Cardiac Catheterization, Hx Coronary Stent, Hx Tubal Ligation Physical Exam - Vital signs Vitals: Temp Pulse Resp BP Pulse Ox 98.7 F 94 16 90/47 L 100 01/07/20 11:40 01/07/20 11:40 01/07/20 11:40 01/07/20 11:40 01/07/20 11:40 Course - Vital Signs Vital signs: Temp Pulse Resp BP Pulse Ox 98.7 F 94 16 90/47 L 100 01/07/20 11:40 01/07/20 11:40 01/07/20 11:40 01/07/20 11:40 01/07/20 11:40 Doctor's Discharge - Discharge Referrals: PRINCE GTZ MD [Primary Care Provider] - Follow up as needed
[2020-01-07] MEDS ORDERED: NORMAL SALINE 1000 ML 1,000 ML IV ONE ×2 (12:28→14:24)
--- NOTE | 2020-01-07 12:58 | RADIOLOGY REPORT (SQ) ---
EXAM DESCRIPTION: CHEST SINGLE VIEW IMAGES COMPLETED DATE/TIME: 01/07/2020 12:47 pm REASON FOR STUDY: A. fib with RVR and hypotension COMPARISON: 12/28/2019 EXAM PARAMETERS: NUMBER OF VIEWS: One view. TECHNIQUE: Single frontal radiographic view of the chest acquired. RADIATION DOSE: NA LIMITATIONS: None. FINDINGS: LUNGS AND PLEURA: No opacities, masses or pneumothorax. No pleural effusion. MEDIASTINUM AND HILAR STRUCTURES: No masses. Contour normal. HEART AND VASCULAR STRUCTURES: Borderline cardiomegaly. Normal vasculature. BONES: No acute findings. HARDWARE: None in the chest. OTHER: No other significant finding. IMPRESSION: 1. Borderline cardiomegaly. No evidence for failure. 2. No acute pulmonary findings. TECHNICAL DOCUMENTATION: JOB ID: [id number] 2010 [employer]- All Rights Reserved Reading location - IP/workstation name: [email or web address]
--- NOTE | 2020-01-07 13:31 | ER Document Report ---
Entered by CHER ANTHONY SCRIBE 01/07/20 1228 Acting as scribe for:DIVINE CORONADO MD ED Cardiac - General Chief Complaint: Irregular Pulse Stated Complaint: DIZZINESS Time Seen by Provider: 01/07/20 11:46 Mode of Arrival: Carried Information source: Patient Notes: This 64-year-old female patient presents to the emergency department today with feeling sluggish and tired 2 days ago with a low-grade fever, yesterday she felt "drained", and then this morning while in the shower she dropped her shampoo and bent over to pick it up and "fell over". Patient was seen in this emergency department on 12/31/2019 and was cardioverted for A. fib. She said she felt fine for a few days after being discharged. Patient is on Eliquis. Patient mentions she has had a decreased appetite and decreased p.o. intake. TRAVEL OUTSIDE OF THE [place] IN LAST 30 DAYS: No - Related Data Allergies/Adverse Reactions: Sulfa (Sulfonamide Antibiotics) Allergy (Verified 01/07/20 11:45) Home Medications: dm. afib. thyroid. copd Past Medical History - General Information source: Patient - Social History Smoking Status: Never Smoker Cigarette use (# per day): No Chew tobacco use (# tins/day): No Frequency of alcohol use: Rare Drug Abuse: None Family History: CAD, DM, Hypertension Patient has homicidal ideation: No - Past Medical History Cardiac Medical History: Reports: Hx Coronary Artery Disease - 1 stent, Hx Hypercholesterolemia, Hx Hypertension Pulmonary Medical History: Reports: Hx COPD Endocrine Medical History: Reports: Hx Diabetes Mellitus Type 1 - Per the patient., Hx Hypothyroidism Psychiatric Medical History: Reports: Hx Depression Past Surgical History: Reports: Hx Appendectomy, Hx Cardiac Catheterization, Hx Coronary Stent, Hx Tubal Ligation Review of Systems - Review of Systems Constitutional: See HPI, Other - "sluggish and tired" EENT: No symptoms reported Cardiovascular: See HPI, Heart racing, Syncope, Lightheaded Respiratory: No symptoms reported Gastrointestinal: No symptoms reported Genitourinary: No symptoms reported Female Genitourinary: No symptoms reported Musculoskeletal: No symptoms reported Skin: No symptoms reported Hematologic/Lymphatic: No symptoms reported Neurological/Psychological: No symptoms reported -: Yes All other systems reviewed and negative Physical Exam - Vital signs Vitals: Temp Pulse Resp BP Pulse Ox 98.7 F 94 16 90/47 L 100 01/07/20 11:40 01/07/20 11:40 01/07/20 11:40 01/07/20 11:40 01/07/20 11:40 Interpretation: Hypotensive, Tachycardic - Notes Notes: Physical Exam: General: Alert, appears well. HEENT: Normocephalic. Atraumatic. PERRL. Extraocular movements intact. Oropharynx clear. Dry mucous membranes. Neck: Supple. Non-tender. Respiratory: No respiratory distress. Clear and equal breath sounds bilaterally. Cardiovascular: Tachycardic, irregularly irregular. Abdominal: Normal Inspection. Non-tender. No distension. Normal Bowel Sounds. Back: No gross abnormalities. Extremities: Moves all four extremities. Upper extremities: Normal inspection. Normal ROM. Lower extremities: Normal inspection. No edema. Normal ROM. Neurological: Normal cognition. AAOx4. Normal speech. Psychological: Normal affect. Normal Mood. Skin: Warm. Dry. Normal color. Course - Vital Signs Vital signs: Temp Pulse Resp BP Pulse Ox 98.7 F 94 16 90/47 L 100 01/07/20 11:45 01/07/20 11:40 01/07/20 11:40 01/07/20 11:40 01/07/20 11:40 - Laboratory Result Diagrams: 01/07/20 13:41 01/07/20 13:15 Laboratory results interpreted by me: 01/07/20 01/07/20 01/07/20 13:15 13:41 13:41 Hgb 10.8 L Hct 31.9 L RDW 15.3 H Lymph % (Auto) 6.2 L [place] % (Auto) 2.9 L Absolute Neuts (auto) 9.3 H Seg Neutrophils % 89.7 H VBG pH 7.44 H VBG pCO2 34.6 L Sodium 121.2 L Potassium 3.5 L Chloride 88 L BUN 21 H Creatinine 1.48 H Est GFR ( Amer) 43 L Est GFR (MDRD) Non-Af 35 L Glucose 232 H Calcium 8.2 L Magnesium 1.4 L ALT 39 H Total Protein 5.8 L Albumin 3.0 L Urine Protein Urine Glucose (UA) Urine Blood Urine Urobilinogen Ur Leukocyte Esterase 01/07/20 01/07/20 14:20 17:36 Hgb Hct RDW Lymph % (Auto) [place] % (Auto) Absolute Neuts (auto) Seg Neutrophils % VBG pH VBG pCO2 Sodium Potassium Chloride BUN Creatinine Est GFR ( Amer) Est GFR (MDRD) Non-Af Glucose Calcium Magnesium 1.4 L ALT Total Protein Albumin Urine Protein >=500 H Urine Glucose (UA) 50 H Urine Blood SMALL H Urine Urobilinogen 2.0 H Ur Leukocyte Esterase MODERATE H - Diagnostic Test Radiology reviewed: Image reviewed, Reports reviewed - Chest x-ray shows borderline cardiomegaly without heart failure. - EKG Interpretation by Me EKG shows normal: [place], Intervals, QRS Complexes, ST-T Waves Rate: Tachycardia Rhythm: A.Fib [place]/QRS: LBBB Voltage: Consistent with LVH P Waves: LAE Critical Care Note - Critical Care Note Total time excluding time spent on procedures (mins): 35 Comments: At least 35 minutes spent evaluating the patient initially, reviewing most recent admission and cardioversion for her atrial fibrillation. Reviewing current lab work and EKG. Managing the hypotension, A. fib with RVR, hyponatremia and urinary tract infection. Consultation with admitting physician. Discharge - Discharge Clinical Impression: Atrial fibrillation with RVR, Tachycardia, Hyponatremia, Dehydration, Hypomagnesemia Hypotension Qualifiers: Hypotension type: hypotension due to hypovolemia Qualified Code(s): I95.89 - Other hypotension Urinary tract infection Qualifiers: Urinary tract infection type: site unspecified Hematuria presence: with hematuria Qualified Code(s): N39.0 - Urinary tract infection, site not specified Condition: Good Disposition: ADMITTED INPATIENT Admitting Provider: Domingo (Hospitalist) Unit Admitted: IMCU I personally performed the services described in the documentation, reviewed and edited the documentation which was dictated to the scribe in my presence, and it accurately records my words and actions.
[2020-01-07 13:59] LABS: VENOUS BLOOD BASE EXCESS -0.5 mmol/L; VENOUS BLOOD HCO3 23.1 mmol/L (20-32); VENOUS BLOOD PCO2 34.6 mmHg (35-63); VENOUS BLOOD PH 7.44 (7.30-7.42)
[2020-01-07 14:01] LABS: ABSOLUTE BASOPHILS # (AUTO) 0.1 10^3/uL (0.0-0.2); ABSOLUTE LYMPHOCYTES (AUTO) 0.6 10^3/uL (0.5-4.7); ABSOLUTE MONOCYTES (AUTO) 0.3 10^3/uL (0.1-1.4); ABSOLUTE NEUT (AUTO) 9.3 10^3/uL (1.7-8.2); BASOPHILS % (AUTO) 0.7 % (0-2); EOSINOPHILS % (AUTO) 0.5 % (0-6); HEMATOCRIT 31.9 % (36.0-47.0); HEMOGLOBIN 10.8 g/dL (12.0-15.5); LYMPHOCYTES % (AUTO) 6.2 % (13-45); MEAN CORPUSCULAR HGB CONC 33.7 g/dL (32.0-36.0); MEAN CORPUSCULAR VOLUME 83 fl (80-97); MONOCYTES % (AUTO) 2.9 % (3-13); PLATELET COUNT 231 10^3/uL (150-450); RED BLOOD COUNT 3.84 10^6/uL (3.72-5.28); RED CELL DISTRIBUTION WIDTH 15.3 % (11.5-14.0); SEGMENTED NEUTROPHILS % (AUTO) 89.7 % (42-78); TOTAL CELLS COUNTED % (AUTO) 100 %; WHITE BLOOD COUNT 10.3 10^3/uL (4.0-10.5)
[2020-01-07 14:19] LABS: ALKALINE PHOSPHATASE 82 U/L (38-126); ANION GAP 7 (5-19); ASPARTATE AMINO TRANSFERASE 25 U/L (14-36); BILIRUBIN,TOTAL 1.1 mg/dL (0.2-1.3); BLOOD UREA NITROGEN 21 mg/dL (7-20); CALCIUM 8.2 mg/dL (8.4-10.2); CARBON DIOXIDE 26 mmol/L (22-30); CHLORIDE 88 mmol/L (98-107); CREATINE KINASE 73 U/L (30-135); GLUCOSE 232 mg/dL (75-110); POTASSIUM 3.5 mmol/L (3.6-5.0); TOTAL PROTEIN 5.8 g/dL (6.3-8.2)
[2020-01-07 14:58] LABS: APPEARANCE,URINE CLOUDY; BILIRUBIN,URINE NEGATIVE (NEGATIVE); COLOR,URINE AMBER; GLUCOSE, URINE 50 mg/dL (NEGATIVE); KETONES,URINE NEGATIVE (NEGATIVE); LEUKOCYTE ESTERASE,URINE MODERATE (NEGATIVE); NITRITE,URINE NEGATIVE (NEGATIVE); PROTEIN,URINE >=500 mg/dL (NEGATIVE); URINE SPECIFIC GRAVITY 1.018
[2020-01-07] MEDS ORDERED: CEFTRIAXONE 1 GM/D5W RTU 1 GM/50 ML RTUPB IV ONE (16:22)
[2020-01-07] MEDS ORDERED: MAGNESIUM HYDROXIDE SUSP 30 ML UDCUP PO PRN (17:06)
[2020-01-07] MEDS ORDERED: MAG HYDROX/AL HYDROX/SIMETH SUSP 30 ML UDCUP PO PRN (17:06)
--- NOTE | 2020-01-07 17:23 | PDOC H&P ---
History of Present Illness Admission Date/PCP: PRINCE GTZ MD Patient complains of: Fell in shower History of Present Illness: ALONZO DAWKINS is a 64 year old female well-known to me from her recent admission. She has a history of coronary artery disease and was recently cardioverted after EL exam last week. She states that she felt good when she got out of the hospital. On Tuesday she began to feel tired and she felt "off ". When she woke up today she states that she still felt quite tired but thought if she took a shower she would feel better. She was in the shower when she became lightheaded and "fell". She states she fell against the door which opened thankfully and did not break. She had several sore areas but no significant injuries. She was going to her primary care provider's office and was instructed to go to the hospital. In the emergency department she was found to be hypotensive, back in atrial fibrillation with rapid ventricular response with a sodium of 121, potassium 3.5, magnesium 1.4 and a glucose of 232. Her urinalysis was markedly positive suggesting infection. The patient will receive IV fluids and antibiotics. We will correct her electrolytes. Her troponin was 0.08 and this could be due to the rapid ventricular response however I will obtain serial troponin studies. The patient will be admitted to [facility]. Past Medical History Cardiac Medical History: Reports: Atrial Fibrillation, Coronary Artery Disease - 1 stent, Hyperlipidema, Hypertension Pulmonary Medical History: Reports: Chronic Obstructive Pulmonary Disease (COPD) Endocrine Medical History: Reports: Diabetes Mellitus Type 1 - Per the patient., Hypothyroidism Malignancy Medical History: Denies: Breast Cancer, Colorectal Cancer, Liver Cancer, Lung Cancer GI Medical History: Denies: Cirrhosis, Gastroesophageal Reflux Disease, Hiatal Hernia Musculoskeltal Medical History: Denies: Fibromyalgia Skin Medical History: Denies: Eczema, Psoriasis Psychiatric Medical History: Reports: Depression Denies: Alcohol Dependency, Substance Abuse, Tobacco Dependency Hematology: Reports: Anemia - Possible myelodysplasia Infectious Medical History: Reports: None Past Surgical History Past Surgical History: Reports: Appendectomy, Cardiac Catheterization, Coronary Stent, Tubal Ligation Social History Information Source: Patient, [facility] Lives with: Spouse/Significant other Smoking Status: Never Smoker Electronic Cigarette use?: No Frequency of Alcohol Use: Rare Hx Recreational Drug Use: No Hx Prescription Drug Abuse: No - Advance Directive Resuscitation Status: Full Code Surrogate healthcare decision maker:: Her Yang Family History Family History: CAD, DM, Hypertension Parental Family History Reviewed: Yes Children Family History Reviewed: Yes Sibling(s) Family History Reviewed.: Yes Medication/Allergy Home Medications: Amlodipine Besylate [Norvasc 5 mg Tablet] 5 mg PO DAILY 12/24/19 Atorvastatin Calcium [Lipitor 20 mg Tablet] 20 mg PO QHS 12/24/19 Citalopram Hydrobromide [Celexa] 10 mg PO DAILY 12/24/19 Folic Acid [Folvite 1 mg Tablet] 1 mg PO DAILY 12/24/19 Hydralazine HCl [Apresoline 25 mg Tablet] 25 mg PO Q12 12/24/19 Insulin Lispro [Humalog Kwikpen U-100] 15 unit SQ TID 12/24/19 Insulin NPH Human Isophane [Novolin N Flexpen] 20 unit SQ QPM 12/24/19 Insulin NPH Human Isophane [Novolin N Flexpen] 25 unit SQ QAM 12/24/19 Levothyroxine Sodium 88 mcg PO SUSA@0600 12/24/19 Aspirin [Aspir-Low] 81 mg PO DAILY 12/25/19 Bisoprolol Fumarate 10 mg PO DAILY 12/25/19 Calcium Carbonate/Vitamin D3 [Calcium 600-D3 20Mcg(800 Unit)] 1 tab PO QHS 12/25/19 Cetirizine HCl [Zyrtec] 10 mg PO HSP PRN 12/25/19 Levothyroxine Sodium [Levo-T] 75 mcg PO MOTUWETHFR@1000 12/25/19 Lisinopril/Hydrochlorothiazide [Lisinopril-Hctz 20-12.5 mg Tab] 1 each PO DAILY 12/25/19 Multivit with Calcium,Iron,Min [Multiple Vitamins For Women] 1 each PO DAILY 12/25/19 Acetaminophen [Tylenol 325 mg Tablet] 650 mg PO Q4HP PRN tablet 12/27/19 Albuterol Sulfate [Proair HFA Inhalation Aerosol 8.5 gm MDI] 2 puff IH Q4HP PRN #1 hfa.aer.ad 12/27/19 Pantoprazole Sodium [Protonix [address] Tablet] 40 mg PO QAM #30 tablet.dr 12/27/19 Apixaban [Eliquis 5 mg Tablet] 5 mg PO BID tablet 01/01/20 Allergies/Adverse Reactions: Sulfa (Sulfonamide Antibiotics) Allergy (Verified 01/07/20 11:45) Review of Systems All systems: reviewed and no additional remarkable complaints except as stated Constitutional: PRESENT: other - Dehydrated Cardiovascular: PRESENT: palpitations Neurological: PRESENT: other - Lightheaded. Physical Exam Vital Signs: Temp Pulse Resp BP Pulse Ox 98.7 F 94 16 90/47 L 100 01/07/20 11:45 01/07/20 11:40 01/07/20 11:40 01/07/20 11:40 01/07/20 11:40 Intake & Output 01/06/20 01/07/20 01/08/20 06:59 06:59 06:59 Intake Total 1000 Balance 1000 Weight 72.575 kg General appearance: PRESENT: no acute distress, cooperative, well-developed, well-nourished Head exam: PRESENT: atraumatic, normocephalic Eye exam: PRESENT: conjunctiva pink, EOMI, PERRLA. ABSENT: scleral icterus Ear exam: PRESENT: normal external ear exam. ABSENT: bleeding, drainage Mouth exam: PRESENT: dry mucosa, tongue midline Teeth exam: ABSENT: poor dentation Neck exam: PRESENT: full ROM. ABSENT: carotid bruit, JVD, lymphadenopathy Respiratory exam: PRESENT: clear to auscultation luz maria, symmetrical, unlabored. ABSENT: prolonged expiratory phas, rales, rhonchi, tachypnea, wheezes Cardiovascular exam: PRESENT: irregular rhythm - Irregular rhythm with tachycardia, tachycardia. ABSENT: bradycardia, diastolic murmur, systolic mu rmur GI/Abdominal exam: PRESENT: normal bowel sounds, soft. ABSENT: distended, mass, tenderness Rectal exam: PRESENT: deferred Gentrourinary exam: ABSENT: indwelling catheter Extremities exam: ABSENT: calf tenderness, joint swelling, pedal edema, +1 edema Musculoskeletal exam: PRESENT: ambulatory, full ROM. ABSENT: deformity, dislocation, normal inspection Neurological exam: PRESENT: alert, awake, oriented to person, oriented to place, oriented to time, oriented to situation, CN II-XII grossly intact. ABSENT: altered, motor sensory deficit Psychiatric exam: PRESENT: appropriate affect. ABSENT: agitated, anxious Focused psych exam: ABSENT: delusional, paranoid, pressured speech, restlessness Skin exam: PRESENT: dry, normal color, warm. ABSENT: cyanosis, erythema, rash Results Laboratory Results: 01/07/20 13:41 01/07/20 13:15 01/07/20 01/07/20 01/07/20 13:15 13:41 13:41 WBC 10.3 RBC 3.84 Hgb 10.8 L Hct 31.9 L MCV 83 MCH 28.0 MCHC 33.7 RDW 15.3 H Plt Count 231 Seg Neutrophils % 89.7 H VBG pH 7.44 H VBG pCO2 34.6 L VBG HCO3 23.1 VBG Base Excess -0.5 Sodium 121.2 L Potassium 3.5 L Chloride 88 L Carbon Dioxide 26 Anion Gap 7 BUN 21 H Creatinine 1.48 H Est GFR ( Amer) 43 L Glucose 232 H Calcium 8.2 L Magnesium 1.4 L Total Bilirubin 1.1 AST 25 Alkaline Phosphatase 82 Total Protein 5.8 L Albumin 3.0 L Urine Color Urine Appearance Urine pH Ur Specific Reading Urine Protein Urine Glucose (UA) Urine Ketones Urine Blood Urine Nitrite Ur Leukocyte Esterase Urine WBC (Auto) Urine RBC (Auto) 01/07/20 14:20 WBC RBC Hgb Hct MCV MCH MCHC RDW Plt Count Seg Neutrophils % VBG pH VBG pCO2 VBG HCO3 VBG Base Excess Sodium Potassium Chloride Carbon Dioxide Anion Gap BUN Creatinine Est GFR ( Amer) Glucose Calcium Magnesium Total Bilirubin AST Alkaline Phosphatase Total Protein Albumin Urine Color AYSHA Urine Appearance CLOUDY Urine pH 5.0 Ur Specific [place] 1.018 Urine Protein >=500 H Urine Glucose (UA) 50 H Urine Ketones NEGATIVE Urine Blood SMALL H Urine Nitrite NEGATIVE Ur Leukocyte Esterase MODERATE H Urine WBC (Auto) >182 Urine RBC (Auto) 52 01/07/20 01/07/20 13:15 13:41 Creatine Kinase 73 Troponin I 0.081 Impressions: Chest X-Ray 01/07/20 12:28 IMPRESSION: 1. Borderline cardiomegaly. No evidence for failure. 2. No acute pulmonary findings. Assessment and Plan - Diagnosis (1) Atrial fibrillation with RVR Is this a current diagnosis for this admission?: Yes Plan: The patient is normally on bisoprolol 10 mg daily. I will use small doses of metoprolol tartrate initially because of her low blood pressure. PRN intravenous metoprolol is available as well. She is already on apixaban. (2) Urinary tract infection Qualifiers: Urinary tract infection type: site unspecified Hematuria presence: with hematuria Qualified Code(s): N39.0 - Urinary tract infection, site not specified; R31.9 - Hematuria, unspecified Is this a current diagnosis for this admission?: Yes Plan: Urine culture is pending. The patient will be on intravenous ceftriaxone until identification and sensitivities are available. (3) Dehydration Is this a current diagnosis for this admission?: Yes Plan: The patient is likely volume depleted. She was hypotensive. The urinary tract infection likely also caused increased urine output. She will receive IV fluids and we will monitor her renal function and volume status. (4) Hyponatremia Is this a current diagnosis for this admission?: Yes Plan: Sodium levels should begin to correct with normal saline. We will monitor closely. Once fully hydrated the patient might benefit from chronic fluid restriction. (5) Coronary artery disease Qualifiers: Coronary Disease-Associated Artery/Lesion type: enterprise artery [place] vs. transplanted heart: enterprise heart Associated angina: without angina Qualified Code(s): I25.10 - Atherosclerotic heart disease of enterprise coronary artery without angina pectoris Is this a current diagnosis for this admission?: Yes Plan: We will continue her aspirin and statin therapy. We will add back her antihypertensive medications based on her blood pressure. (6) Hypothyroidism, postsurgical Is this a current diagnosis for this admission?: Yes Plan: Resume levothyroxine. 75 mcg Tuesday through Tuesday and 88 mcg on Tuesday and Tuesday (7) Hypertension Qualifiers: Hypertension type: essential hypertension Qualified Code(s): I10 - Essential (primary) hypertension Is this a current diagnosis for this admission?: Yes Plan: Usually on multiple medications. Blood pressure was low on admission. We will start with low-dose metoprolol. As blood pressure improves gradually add back antihypertensive medications. (8) Hypomagnesemia Is this a current diagnosis for this admission?: Yes Plan: Supplement magnesium and monitor (9) Hyperglycemia due to diabetes mellitus Is this a current diagnosis for this admission?: Yes Plan: Controlled carbohydrate diet. Accu-Cheks and sliding scale. Continue home NPH regimen of 25 units in the morning and 20 units in the evening. (10) COPD (chronic obstructive pulmonary disease) with chronic bronchitis Is this a current diagnosis for this admission?: Yes Plan: Asymptomatic at this time. Only uses rescue inhaler at home. (11) Depression Qualifiers: Depression Type: unspecified Qualified Code(s): F32.9 - Major depressive disorder, single episode, unspecified Is this a current diagnosis for this admission?: Yes Plan: Continue Celexa (12) Hypotension Qualifiers: Hypotension type: hypotension due to hypovolemia Qualified Code(s): I95.89 - Other hypotension; E86.1 - Hypovolemia Is this a current diagnosis for this admission?: Yes Plan: Resolved with IV fluids. Gradually resume antihypertensive medications as blood pressure increases. - Time Time Spent with patient: 35 or more minutes Medications reviewed and adjusted accordingly: Yes Anticipated Discharge Disposition: Home, Self Care Anticipated Discharge Timeframe: Unknown - Inpatient Certification Based on my medical assessment, after consideration of the patient's comorbidities, presenting symptoms, or acuity I expect that the services needed warrant INPATIENT care.: Yes I certify that my determination is in accordance with my understanding of Medicare's requirements for reasonable and necessary INPATIENT services [42 CFR 412.3e].: Yes Medical Necessity: Need Close Monitoring Due to Risk of Patient Decompensation, Need For IV Fluids, Need For Continuous Telemetry Monitoring, Need for IV Antibiotics 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
[2020-01-07] MEDS ORDERED: MAGNESIUM SULFATE/D5W 1 GM/100 ML RTUPB IV ONE ×2 (18:29→20:30)
[2020-01-07] MEDS ORDERED: DEXTROSE 50%-WATER 25 GM/50 ML DISP.SYRIN IV PRN ×2 (18:35)
[2020-01-07] MEDS ORDERED: GLUCAGON,HUMAN RECOMB 1 MG INJ IM PRN (18:35)
[2020-01-07] MEDS ORDERED: DEXTROSE 40% GEL 15 GM TUBE PO PRN ×2 (18:35)
[2020-01-07] MEDS ORDERED: LEVOTHYROXINE SODIUM 0.075 MG TABLET PO SCH (19:00)
[2020-01-07] MEDS: APIXABAN 5 MG TABLET PO SCH (19:10)
--- NOTE | 2020-01-07 19:15 | EKG REPORT ---
SEVERITY:- ABNORMAL ECG - A FIB INCOMPLETE LEFT BUNDLE BRANCH BLOCK LVH WITH SECONDARY REPOLARIZATION ABNORMALITY : Confirmed by: Jevon Medellin 07-Jan-2020 19:14:14
[2020-01-07] MEDS: ACETAMINOPHEN 325 MG TABLET PO PRN (20:15)
[2020-01-07] MEDS: METOPROLOL TARTRATE PF/INJ 5 MG/5 ML SDV IV PRN (20:32)
[2020-01-07 21:42] LABS: ANION GAP 8 (5-19); BLOOD UREA NITROGEN 19 mg/dL (7-20); CALCIUM 7.8 mg/dL (8.4-10.2); CARBON DIOXIDE 23 mmol/L (22-30); CHLORIDE 92 mmol/L (98-107); GLUCOSE 168 mg/dL (75-110); POTASSIUM 3.5 mmol/L (3.6-5.0)
[2020-01-07] MEDS ORDERED: ENOXAPARIN SODIUM INJ 80 MG/0.8 ML DISP.SYRIN SUBCUT SCH (22:00)
[2020-01-07] MEDS: POTASSI CL 20 MEQ/NS 1L 1,000 ML IV PRN (22:14)
[2020-01-07] MEDS: ATORVASTATIN CALCIUM 40 MG TABLET PO SCH (22:18)
[2020-01-07] MEDS: CEFTRIAXONE 1 GM/D5W RTU 1 GM/50 ML RTUPB IV SCH (22:19)
[2020-01-07] MEDS ORDERED: INSULIN NPH (ISOPHANE), HUMAN 100 UNIT/ML 3 ML SUBCUT ONE (22:30)
[2020-01-07] MEDS: INSULIN LISPRO 100 UNIT/ML 3 ML VIAL SUBCUT SCH (22:33)
[2020-01-08] MEDS: METOPROLOL TARTRATE 25 MG TABLET PO SCH ×3 (00:36→21:09)
[2020-01-08] MEDS: METOPROLOL TARTRATE PF/INJ 5 MG/5 ML SDV IV PRN (02:58)
[2020-01-08] MEDS: PANTOPRAZOLE SODIUM 40 MG TABLET.DR PO SCH (06:04)
[2020-01-08] MEDS: LEVOTHYROXINE SODIUM 0.075 MG TABLET PO SCH (06:13)
[2020-01-08 06:18] LABS: ABSOLUTE EOSINOPHILS # (AUTO) 0.4 10^3/uL (0.0-0.6); ABSOLUTE LYMPHOCYTES (AUTO) 0.6 10^3/uL (0.5-4.7); ABSOLUTE MONOCYTES (AUTO) 0.3 10^3/uL (0.1-1.4); ABSOLUTE NEUT (AUTO) 5.6 10^3/uL (1.7-8.2); BASOPHILS % (AUTO) 0.5 % (0-2); EOSINOPHILS % (AUTO) 5.2 % (0-6); HEMATOCRIT 29.2 % (36.0-47.0); HEMOGLOBIN 9.9 g/dL (12.0-15.5); LYMPHOCYTES % (AUTO) 8.4 % (13-45); MEAN CORPUSCULAR HEMOGLOBIN 28.2 pg (27.0-33.4); MEAN CORPUSCULAR HGB CONC 33.9 g/dL (32.0-36.0); MEAN CORPUSCULAR VOLUME 83 fl (80-97); MONOCYTES % (AUTO) 3.9 % (3-13); PLATELET COUNT 204 10^3/uL (150-450); RED BLOOD COUNT 3.51 10^6/uL (3.72-5.28); RED CELL DISTRIBUTION WIDTH 15.3 % (11.5-14.0); TOTAL CELLS COUNTED % (AUTO) 100 %; WHITE BLOOD COUNT 6.9 10^3/uL (4.0-10.5)
[2020-01-08 06:32] LABS: ALBUMIN 2.8 g/dL (3.5-5.0); ANION GAP 6 (5-19); BLOOD UREA NITROGEN 17 mg/dL (7-20); CALCIUM 7.8 mg/dL (8.4-10.2); CARBON DIOXIDE 25 mmol/L (22-30); CHLORIDE 97 mmol/L (98-107); GLUCOSE 82 mg/dL (75-110); PHOSPHORUS 2.9 mg/dL (2.5-4.5); POTASSIUM 3.8 mmol/L (3.6-5.0)
--- NOTE | 2020-01-08 07:59 | EKG REPORT ---
SEVERITY:- ABNORMAL ECG - ATRIAL FIBRILLATION, V-RATE 69-176 CONSIDER ANTEROSEPTAL INFARCT BORDERLINE T ABNORMALITIES, LATERAL LEADS : Confirmed by: Jevon Medellin 08-Jan-2020 07:58:04
[2020-01-08] MEDS ORDERED: INSULIN NPH (ISOPHANE), HUMAN 100 UNIT/ML 3 ML SUBCUT SCH ×3 (08:00→22:00)
[2020-01-08] MEDS: INSULIN LISPRO 100 UNIT/ML 3 ML VIAL SUBCUT SCH ×4 (08:46→21:10)
[2020-01-08] MEDS ORDERED: CEFTRIAXONE 1 GM/D5W RTU 1 GM/50 ML RTUPB IV SCH (10:00)
[2020-01-08] MEDS: CETIRIZINE 10 MG TABLET PO SCH (10:06)
[2020-01-08] MEDS: CITALOPRAM HYDROBROMIDE 20 MG TABLET PO SCH (10:06)
[2020-01-08] MEDS: FOLIC ACID 1 MG TABLET PO SCH (10:06)
[2020-01-08] MEDS: CALCIUM CARBONATE 600 MG/VITAMIN D3 400 UNIT TABLET PO SCH (10:06)
[2020-01-08] MEDS: APIXABAN 5 MG TABLET PO SCH ×2 (10:07→18:49)
[2020-01-08] MEDS: ACETAMINOPHEN 325 MG TABLET PO PRN (10:12)
[2020-01-08] MEDS: POTASSI CL 20 MEQ/NS 1L 1,000 ML IV PRN (10:15)
[2020-01-08] MEDS ORDERED: POTASSI CL 20 MEQ/NS 1L 1,000 ML IV PRN (10:33)
--- NOTE | 2020-01-08 10:40 | PDOC PROGRESS REPORT ---
Subjective Progress Note for:: 01/08/20 Subjective:: 64 year old female well-known to me from her recent admission. She has a history of coronary artery disease and was recently cardioverted after EL exam last week. She states that she felt good when she got out of the hospital. On Tuesday she began to feel tired and she felt "off ". When she woke up today she states that she still felt quite tired but thought if she took a shower she would feel better. She was in the shower when she became lightheaded and "fe ll". She states she fell against the door which opened thankfully and did not break. She had several sore areas but no significant injuries. She was going to her primary care provider's office and was instructed to go to the hospital. In the emergency department she was found to be hypotensive, back in atrial fibrillation with rapid ventricular response with a sodium of 121, potassium 3.5, magnesium 1.4 and a glucose of 232. Her urinalysis was markedly positive suggesting infection. The patient will receive IV fluids and antibiotics. We will correct her electrolytes. Her troponin was 0.08 and this could be due to the rapid ventricular response however I will obtain serial troponin studies. The patient will be admitted to IMCU. 01/08/20-patient is comfortable in the bed communicating well. Still tachycardic. Serum sodium came up to 127.7. Patient is receiving IV Rocephin for UTI. Discussed with Dr. Velazquez is going to come and see the patient. Reason For Visit: ATRIAL FIBRILLATION WITH RAPID VENTRICULAR Physical Exam Vital Signs: Temp Pulse Resp BP Pulse Ox 98.5 F 91 22 H 115/75 99 01/08/20 07:13 01/08/20 07:13 01/08/20 07:13 01/08/20 07:13 01/08/20 07:13 Intake & Output 01/07/20 01/08/20 01/09/20 06:59 06:59 06:59 Intake Total 3250 Output Total 1750 Balance 1500 Weight 73.1 kg General appearance: PRESENT: no acute distress, obese Head exam: PRESENT: atraumatic Eye exam: PRESENT: PERRLA Mouth exam: PRESENT: moist, tongue midline Teeth exam: PRESENT: poor dentation Neck exam: ABSENT: carotid bruit, JVD, lymphadenopathy, thyromegaly Respiratory exam: PRESENT: decreased breath sounds Cardiovascular exam: PRESENT: irregular rhythm, tachycardia GI/Abdominal exam: PRESENT: normal bowel sounds, soft. ABSENT: distended, guarding, mass, organolmegaly, rebound, tenderness Rectal exam: PRESENT: deferred Extremities exam: PRESENT: full ROM. ABSENT: calf tenderness, clubbing, pedal edema Neurological exam: PRESENT: alert, awake, oriented to person, oriented to place, oriented to time, oriented to situation, CN II-XII grossly intact. ABSENT: motor sensory deficit Psychiatric exam: PRESENT: appropriate affect, normal mood. ABSENT: homicidal ideation, suicidal ideation Results Laboratory Results: 01/08/20 05:25 01/08/20 05:25 01/07/20 01/07/20 01/07/20 13:15 13:41 13:41 WBC 10.3 RBC 3.84 Hgb 10.8 L Hct 31.9 L MCV 83 MCH 28.0 MCHC 33.7 RDW 15.3 H Plt Count 231 Seg Neutrophils % 89.7 H VBG pH 7.44 H VBG pCO2 34.6 L VBG HCO3 23.1 VBG Base Excess -0.5 Sodium 121.2 L Potassium 3.5 L Chloride 88 L Carbon Dioxide 26 Anion Gap 7 BUN 21 H Creatinine 1.48 H Est GFR ( Amer) 43 L Glucose 232 H Calcium 8.2 L Phosphorus Magnesium 1.4 L Total Bilirubin 1.1 AST 25 Alkaline Phosphatase 82 Total Protein 5.8 L Albumin 3.0 L Urine Color Urine Appearance Urine pH Ur Specific [place] Urine Protein Urine Glucose (UA) Urine Ketones Urine Blood Urine Nitrite Ur Leukocyte Esterase Urine WBC (Auto) Urine RBC (Auto) 01/07/20 01/07/20 01/07/20 14:20 17:36 17:36 WBC RBC Hgb Hct MCV MCH MCHC RDW Plt Count Seg Neutrophils % VBG pH VBG pCO2 VBG HCO3 VBG Base Excess Sodium 122.8 L Potassium 3.5 L Chloride 92 L Carbon Dioxide 23 Anion Gap 8 BUN 19 Creatinine 1.17 Est GFR ( Amer) 56 L Glucose 168 H Calcium 7.8 L Phosphorus Magnesium 1.4 L Total Bilirubin AST Alkaline Phosphatase Total Protein Albumin Urine Color AYSHA Urine Appearance CLOUDY Urine pH 5.0 Ur Specific [place] 1.018 Urine Protein >=500 H Urine Glucose (UA) 50 H Urine Ketones NEGATIVE Urine Blood SMALL H Urine Nitrite NEGATIVE Ur Leukocyte Esterase MODERATE H Urine WBC (Auto) >182 Urine RBC (Auto) 52 01/08/20 01/08/20 05:25 05:25 WBC 6.9 RBC 3.51 L Hgb 9.9 L Hct 29.2 L MCV 83 MCH 28.2 MCHC 33.9 RDW 15.3 H Plt Count 204 Seg Neutrophils % 82.0 H VBG pH VBG pCO2 VBG HCO3 VBG Base Excess Sodium 127.7 L Potassium 3.8 Chloride 97 L Carbon Dioxide 25 Anion Gap 6 BUN 17 Creatinine 0.91 Est GFR ( Amer) > 60 Glucose 82 Calcium 7.8 L Phosphorus 2.9 Magnesium 2.0 Total Bilirubin AST Alkaline Phosphatase Total Protein Albumin 2.8 L Urine Color Urine Appearance Urine pH Ur Specific [place] Urine Protein Urine Glucose (UA) Urine Ketones Urine Blood Urine Nitrite Ur Leukocyte Esterase Urine WBC (Auto) Urine RBC (Auto) 01/07/20 01/07/20 01/07/20 13:15 13:41 17:36 Creatine Kinase 73 Troponin I 0.081 0.081 01/07/20 01/08/20 23:25 05:25 Creatine Kinase Troponin I 0.064 0.060 Impressions: Chest X-Ray 01/07/20 12:28 IMPRESSION: 1. Borderline cardiomegaly. No evidence for failure. 2. No acute pulmonary findings. Assessment and Plan - Diagnosis (1) Atrial fibrillation with RVR Is this a current diagnosis for this admission?: Yes Plan: The patient is normally on bisoprolol 10 mg daily. I will use small doses of metoprolol tartrate initially because of her low blood pressure. PRN intravenous metoprolol is available as well. She is already on apixaban. 01/08/2020-patient is on apixaban came in with A. fib with RVR patient recently had a cardioversion/EL Dr. Schwarz is going to evaluate the patient for further management. Presently patient is on metoprolol 25 mg p.o. every 12 hours and metoprolol 2.5 mg IV every 6 hours as needed. (2) Urinary tract infection Qualifiers: Urinary tract infection type: site unspecified Hematuria presence: with hematuria Qualified Code(s): N39.0 - Urinary tract infection, site not specified; R31.9 - Hematuria, unspecified Is this a current diagnosis for this admission?: Yes Plan: Urine culture is pending. The patient will be on intravenous ceftriaxone until identification and sensitivities are available. 01/08/20-urine culture came back positive for gram-positive cocci in chains. Plan is to continue IV ceftriaxone at this time. (3) Hyponatremia Is this a current diagnosis for this admission?: Yes Plan: Sodium levels should begin to correct with normal saline. We will monitor closely. Once fully hydrated the patient might benefit from chronic fluid restriction. 01/08/20-serum sodium came up to 127.7. Patient is on normal saline at 125 cc/h with potassium supplementations plan is to decrease the rate to 75 cc/h. (4) Coronary artery disease Qualifiers: Coronary Disease-Associated Artery/Lesion type: [place] artery [place] vs. transplanted heart: [place] heart Associated angina: without angina Qualified Code(s): I25.10 - Atherosclerotic heart disease of [place] coronary artery without angina pectoris Is this a current diagnosis for this admission?: Yes Plan: We will continue her aspirin and statin therapy. We will add back her antihypertensive medications based on her blood pressure. (5) Hypertension Qualifiers: Hypertension type: essential hypertension Qualified Code(s): I10 - Essential (primary) hypertension Is this a current diagnosis for this admission?: No Plan: Usually on multiple medications. Blood pressure was low on admission. We will start with low-dose metoprolol. As blood pressure improves gradually add back antihypertensive medications. 01/08/2020-patient blood pressure today is 115/75. Stable. Plan is to continue metoprolol 25 mg p.o. twice daily at this time. (6) Hyperglycemia due to diabetes mellitus Is this a current diagnosis for this admission?: Yes Plan: Controlled carbohydrate diet. Accu-Cheks and sliding scale. Continue home NPH regimen of 25 units in the morning and 20 units in the evening. 01/08/2020-patient blood sugar is 82 this morning. Plan is to decrease pH to 15 units before meals and 15 units nightly. Check for hemoglobin A1c. Diet exercise complicated medications discussed with the patient. (7) Hypomagnesemia Is this a current diagnosis for this admission?: Yes Plan: Supplement magnesium and monitor 01/08/2020-serum magnesium today is 2.0. Stable. (8) COPD (chronic obstructive pulmonary disease) with chronic bronchitis Is this a current diagnosis for this admission?: Yes Plan: Asymptomatic at this time. Only uses rescue inhaler at home. (9) Hypotension Qualifiers: Hypotension type: hypotension due to hypovolemia Qualified Code(s): I95.89 - Other hypotension; E86.1 - Hypovolemia Is this a current diagnosis for this admission?: Yes Plan: Resolved with IV fluids. Gradually resume antihypertensive medications as blood pressure increases. 01/08/2020-blood pressure today is 115/75. Stable. Plan is to decrease the IV fluids to 75 cc/h. (10) Depression Qualifiers: Depression Type: unspecified Qualified Code(s): F32.9 - Major depressive disorder, single episode, unspecified Is this a current diagnosis for this admission?: No Plan: Continue Celexa - Time Anticipated Discharge Disposition: Home, Self Care Anticipated Discharge Timeframe: within 72 hours
--- NOTE | 2020-01-08 19:06 | PDOC CONSULTATION ---
Consultation Consult Date: 01/08/20 Attending physician:: ANTONETTE VAZQUEZ Provider Consulted: JANE ARENAS Consult reason:: Atrial fibrillation History of Present Illness Admission Date/PCP: 01/07/20 17:41 PRINCE GTZ MD Patient complains of: Palpitations, weakness History of Present Illness: ALONZO DAWKINS is a 64 year old female With the following active problems 1. Atrial fibrillation 2. Long-term systemic anticoagulation 3. Coronary artery disease 4. Systemic hypertension 5. Dyslipidemia Patient known to me from last week when she presented with new onset atrial fibrillation with rapid ventricular response that was difficult to rate control. We performed a transesophageal echocardiogram which showed preserved left ventricular ejection fraction and no left atrial appendage thrombus. We proceeded with direct-current cardioversion which was successful in restoring sinus rhythm. Patient subsequently went home and did not feel like her usual self and in the shower felt dizzy lightheaded and fell over. Is not very clear if she had a syncopal episode but she recalls falling over. No trauma is reported. Subsequently upon evaluation in the emergency room she was found to be back in atrial fibrillation with rapid ventricular response and also was found to have a urinary tract infection. Presently she continues to be in atrial fibrillation rapid ventricular response although minimally symptomatic. She is continued systemic anticoagulation without any interruption and has tolerated this pretty well. Past Medical History Cardiac Medical History: Reports: Atrial Fibrillation, Coronary Artery Disease - 1 stent, Hyperlipidema, Hypertension Pulmonary Medical History: Reports: Chronic Obstructive Pulmonary Disease (COPD) Endocrine Medical History: Reports: Diabetes Mellitus Type 1 - Per the patient., Hypothyroidism Malignancy Medical History: Denies: Breast Cancer, Colorectal Cancer, Liver Cancer, Lung Cancer GI Medical History: Denies: Cirrhosis, Gastroesophageal Reflux Disease, Hiatal Hernia Musculoskeltal Medical History: Denies: Fibromyalgia Skin Medical History: Denies: Eczema, Psoriasis Psychiatric Medical History: Reports: Depression Denies: Alcohol Dependency, Substance Abuse, Tobacco Dependency Hematology: Reports: Anemia - Possible myelodysplasia Infectious Medical History: Reports: None Past Surgical History Past Surgical History: Reports: Appendectomy, Cardiac Catheterization, Coronary Stent, Tubal Ligation Social History Lives with: Spouse/Significant other Smoking Status: Never Smoker Electronic Cigarette use?: No Number of Years Smokin Frequency of Alcohol Use: Rare Hx Recreational Drug Use: No Hx Prescription Drug Abuse: No - Advance Directive Resuscitation Status: Full Code Family History Family History: CAD, DM, Hypertension Parental Family History Reviewed: No Children Family History Reviewed: NA Sibling(s) Family History Reviewed.: NA Medication/Allergy Home Medications: Amlodipine Besylate [Norvasc 5 mg Tablet] 5 mg PO DAILY 12/24/19 Atorvastatin Calcium [Lipitor 20 mg Tablet] 20 mg PO QHS 12/24/19 Citalopram Hydrobromide [Celexa] 10 mg PO DAILY 12/24/19 Folic Acid [Folvite 1 mg Tablet] 1 mg PO DAILY 12/24/19 Hydralazine HCl [Apresoline 25 mg Tablet] 25 mg PO Q12 12/24/19 Insulin Lispro [Humalog Kwikpen U-100] 15 unit SQ TID 12/24/19 Insulin NPH Human Isophane [Novolin N Flexpen] 20 unit SQ QPM 12/24/19 Insulin NPH Human Isophane [Novolin N Flexpen] 25 unit SQ QAM 12/24/19 Levothyroxine Sodium 88 mcg PO SUSA@0600 12/24/19 Aspirin [Aspir-Low] 81 mg PO DAILY 12/25/19 Bisoprolol Fumarate 10 mg PO DAILY 12/25/19 Calcium Carbonate/Vitamin D3 [Calcium 600-D3 20Mcg(800 Unit)] 1 tab PO QHS 12/25/19 Cetirizine HCl [Zyrtec] 10 mg PO HSP PRN 12/25/19 Levothyroxine Sodium [Levo-T] 75 mcg PO MOTUWETHFR@1000 12/25/19 Lisinopril/Hydrochlorothiazide [Lisinopril-Hctz 20-12.5 mg Tab] 1 each PO DAILY 12/25/19 Multivit with Calcium,Iron,Min [Multiple Vitamins For Women] 1 each PO DAILY 12/25/19 Acetaminophen [Tylenol 325 mg Tablet] 650 mg PO Q4HP PRN tablet 12/27/19 Albuterol Sulfate [Proair HFA Inhalation Aerosol 8.5 gm MDI] 2 puff IH Q4HP PRN #1 hfa.[email or web address] 12/27/19 Pantoprazole Sodium [Protonix [address] Tablet] 40 mg PO QAM #30 tablet.dr 12/27/19 Apixaban [Eliquis 5 mg Tablet] 5 mg PO BID tablet 01/01/20 Allergies/Adverse Reactions: Sulfa (Sulfonamide Antibiotics) Allergy (Verified 01/07/20 11:45) Review of Systems Constitutional: PRESENT: as per HPI, fatigue, weakness Cardiovascular: PRESENT: as per HPI, dyspnea on exertion Neurological: PRESENT: as per HPI, weakness Physical Exam Vital Signs: Temp Pulse Resp BP Pulse Ox 98.0 F 117 H 20 116/60 100 01/08/20 11:15 01/08/20 14:00 01/08/20 11:15 01/08/20 11:15 01/08/20 11:15 Intake & Output 01/07/20 01/08/20 01/09/20 06:59 06:59 06:59 Intake Total 3250 40 Output Total 1750 Balance 1500 40 Weight 73.1 kg General appearance: PRESENT: no acute distress, cooperative, well-developed, well-nourished Head exam: PRESENT: atraumatic Eye exam: PRESENT: conjunctiva pink Mouth exam: PRESENT: moist Respiratory exam: PRESENT: symmetrical, unlabored Cardiovascular exam: PRESENT: irregular rhythm, +S1, +S2, tachycardia Pulses: PRESENT: normal radial pulses GI/Abdominal exam: PRESENT: soft Rectal exam: PRESENT: deferred Neurological exam: PRESENT: alert, awake, oriented to person, oriented to place, oriented to time, oriented to situation Psychiatric exam: PRESENT: appropriate affect Skin exam: PRESENT: dry, intact Results Laboratory Results: 01/08/20 05:25 01/08/20 05:25 01/07/20 01/08/20 01/08/20 17:36 05:25 05:25 WBC 6.9 RBC 3.51 L Hgb 9.9 L Hct 29.2 L MCV 83 MCH 28.2 MCHC 33.9 RDW 15.3 H Plt Count 204 Seg Neutrophils % 82.0 H Sodium 122.8 L 127.7 L Potassium 3.5 L 3.8 Chloride 92 L 97 L Carbon Dioxide 23 25 Anion Gap 8 6 BUN 19 17 Creatinine 1.17 0.91 Est GFR ( Amer) 56 L > 60 Glucose 168 H 82 Calcium 7.8 L 7.8 L Phosphorus 2.9 Magnesium 2.0 Albumin 2.8 L 01/07/20 01/07/20 01/07/20 13:15 13:41 17:36 Creatine Kinase 73 Troponin I 0.081 0.081 01/07/20 01/08/20 23:25 05:25 Creatine Kinase Troponin I 0.064 0.060 EKG Comments: Twelve-lead EKG 01/08/2028. Independently reviewed by me. Atrial fibrillation with rapid ventricular response 120 bpm 01/07/2020 independently reviewed by me. Atrial fibrillation, rapid ventricular response, ventricular rate is 146 bpm. Chest x-ray 01/07/2020 Borderline cardiomegaly. No acute pulmonary findings Urine analysis 01/07/2020 Moderate leukocyte Estrace Transesophageal echocardiogram 12/31/2019 Left ventricular ejection fraction 50 to 55% RV is normal in size and function Trace tricuspid regurgitation No thrombus in the left atrial appendage There is mild to moderate mitral regurgitation. Transthoracic echocardiogram 12/27/2019 Left ventricular ejection fraction grossly normal Mild MR mild to moderate TR Impressions: Chest X-Ray 01/07/20 12:28 IMPRESSION: 1. Borderline cardiomegaly. No evidence for failure. 2. No acute pulmonary findings. Assessment & Plan - Diagnosis (1) Atrial fibrillation with RVR Is this a current diagnosis for this admission?: Yes Plan: We will perform rate control for now. Patient had good results with cardioversion initially so we will reattempt ca rdioversion. She likely went back into atrial fibrillation on account of urinary tract infection which probably acted as a trigger. She has not interrupted her systemic anticoagulation so we can directly proceed with cardioversion (2) Urinary tract infection Qualifiers: Urinary tract infection type: site unspecified Hematuria presence: with hematuria Qualified Code(s): N39.0 - Urinary tract infection, site not specified; R31.9 - Hematuria, unspecified Is this a current diagnosis for this admission?: Yes Plan: Patient receiving intravenous antibiotic therapy for urinary tract infection - Notes Notes: keep n.p.o. past midnight Continue apixaban We will plan on cardioversion tomorrow please keep n.p.o. past midnight
[2020-01-08] MEDS: ATORVASTATIN CALCIUM 40 MG TABLET PO SCH (21:09)
[2020-01-08] MEDS: CEFTRIAXONE 1 GM/D5W RTU 1 GM/50 ML RTUPB IV SCH (21:10)
[2020-01-08] MEDS: INSULIN NPH (ISOPHANE), HUMAN 100 UNIT/ML 3 ML SUBCUT SCH (21:11)
[2020-01-09] MEDS: ACETAMINOPHEN 325 MG TABLET PO PRN (00:51)
[2020-01-09] MEDS: LEVOTHYROXINE SODIUM 0.075 MG TABLET PO SCH (05:25)
[2020-01-09] MEDS: PANTOPRAZOLE SODIUM 40 MG TABLET.DR PO SCH (05:25)
[2020-01-09 06:33] LABS: HEMATOCRIT 28.2 % (36.0-47.0); HEMOGLOBIN 9.6 g/dL (12.0-15.5); MEAN CORPUSCULAR HEMOGLOBIN 28.3 pg (27.0-33.4); MEAN CORPUSCULAR HGB CONC 34.2 g/dL (32.0-36.0); MEAN CORPUSCULAR VOLUME 83 fl (80-97); PLATELET COUNT 203 10^3/uL (150-450); RED CELL DISTRIBUTION WIDTH 15.2 % (11.5-14.0); WHITE BLOOD COUNT 6.3 10^3/uL (4.0-10.5)
[2020-01-09 06:57] LABS: ALBUMIN 3.2 g/dL (3.5-5.0); ANION GAP 7 (5-19); BLOOD UREA NITROGEN 9 mg/dL (7-20); CALCIUM 8.1 mg/dL (8.4-10.2); CARBON DIOXIDE 24 mmol/L (22-30); CHLORIDE 99 mmol/L (98-107); GLUCOSE 72 mg/dL (75-110); POTASSIUM 4.1 mmol/L (3.6-5.0)
[2020-01-09] MEDS ORDERED: POTASSI CL 20 MEQ/NS 1L 1,000 ML IV PRN (10:36)
--- NOTE | 2020-01-09 10:36 | PDOC PROGRESS REPORT ---
Subjective Progress Note for:: 01/09/20 Subjective:: 64 year old female well-known to me from her recent admission. She has a history of coronary artery disease and was recently cardioverted after EL exam last week. She states that she felt good when she got out of the hospital. On Tuesday she began to feel tired and she felt "off ". When she woke up today she states that she still felt quite tired but thought if she took a shower she would feel better. She was in the shower when she became lightheaded and "fe ll". She states she fell against the door which opened thankfully and did not break. She had several sore areas but no significant injuries. She was going to her primary care provider's office and was instructed to go to the hospital. In the emergency department she was found to be hypotensive, back in atrial fibrillation with rapid ventricular response with a sodium of 121, potassium 3.5, magnesium 1.4 and a glucose of 232. Her urinalysis was markedly positive suggesting infection. The patient will receive IV fluids and antibiotics. We will correct her electrolytes. Her troponin was 0.08 and this could be due to the rapid ventricular response however I will obtain serial troponin studies. The patient will be admitted to IMCU. 01/08/20-patient is comfortable in the bed communicating well. Still tachycardic. Serum sodium came up to 127.7. Patient is receiving IV Rocephin for UTI. Discussed with Dr. Velazquez is going to come and see the patient. 01/[id number]-bisn-old female admitted with atrial for with rapid ventricular rate. Patient has a recent cardioversion at that time found to have a normal ejection fraction no right atrial appendage thrombus seen. Patient is scheduled for cardioversion again this afternoon. Plan is to continue Eliquis at this time and the patient is n.p.o. from midnight. Reason For Visit: ATRIAL FIBRILLATION WITH RAPID VENTRICULAR Physical Exam Vital Signs: Temp Pulse Resp BP Pulse Ox 98.1 F 90 16 127/85 H 98 01/09/20 07:29 01/09/20 07:29 01/09/20 07:29 01/09/20 07:29 01/09/20 07:29 Intake & Output 01/08/20 01/09/20 01/10/20 06:59 06:59 06:59 Intake Total 3300 2384 Output Total 1750 400 Balance 1550 1984 Weight 73.1 kg 74.6 kg General appearance: PRESENT: no acute distress, well-developed Head exam: PRESENT: atraumatic Eye exam: PRESENT: PERRLA Ear exam: PRESENT: normal external ear exam Mouth exam: PRESENT: neck supple Teeth exam: PRESENT: poor dentation Neck exam: ABSENT: carotid bruit, JVD, lymphadenopathy, thyromegaly Respiratory exam: PRESENT: clear to auscultation luz maria. ABSENT: rales, rhonchi, wheezes Cardiovascular exam: PRESENT: irregular rhythm, tachycardia Pulses: PRESENT: normal dorsalis pedis pul GI/Abdominal exam: PRESENT: normal bowel sounds, soft. ABSENT: distended, guarding, mass, organolmegaly, rebound, tenderness Rectal exam: PRESENT: deferred Extremities exam: PRESENT: full ROM. ABSENT: calf tenderness, clubbing, pedal edema Neurological exam: PRESENT: alert, awake, oriented to person, oriented to place, oriented to time, oriented to situation, CN II-XII grossly intact. ABSENT: motor sensory deficit Psychiatric exam: PRESENT: appropriate affect, normal mood. ABSENT: homicidal ideation, suicidal ideation Results Laboratory Results: 01/09/20 05:49 01/09/20 05:49 01/09/20 01/09/20 05:49 05:49 WBC 6.3 RBC 3.40 L Hgb 9.6 L Hct 28.2 L MCV 83 MCH 28.3 MCHC 34.2 RDW 15.2 H Plt Count 203 Sodium 129.8 L Potassium 4.1 Chloride 99 Carbon Dioxide 24 Anion Gap 7 BUN 9 Creatinine 0.68 Est GFR ( Amer) > 60 Glucose 72 L Calcium 8.1 L Phosphorus 2.0 L Magnesium 1.7 Albumin 3.2 L 01/07/20 01/07/20 01/07/20 13:15 13:41 17:36 Creatine Kinase 73 Troponin I 0.081 0.081 01/07/20 01/08/20 23:25 05:25 Creatine Kinase Troponin I 0.064 0.060 Impressions: Chest X-Ray 01/07/20 12:28 IMPRESSION: 1. Borderline cardiomegaly. No evidence for failure. 2. No acute pulmonary findings. Assessment and Plan - Diagnosis (1) Atrial fibrillation with RVR Is this a current diagnosis for this admission?: Yes Plan: The patient is normally on bisoprolol 10 mg daily. I will use small doses of metoprolol tartrate initially because of her low blood pressure. PRN intravenous metoprolol is available as well. She is already on apixaban. 01/08/2020-patient is on apixaban came in with A. fib with RVR patient recently had a cardioversion/EL Dr. Schwarz is going to evaluate the patient for further management. Presently patient is on metoprolol 25 mg p.o. every 12 hours and metoprolol 2.5 mg IV every 6 hours as needed. 01/09/2020-patient admitted with atrial fib with rapid ventricular rate on Eliquis. Patient is going for cardioversion today. (2) Urinary tract infection Qualifiers: Urinary tract infection type: site unspecified Hematuria presence: with hematuria Qualified Code(s): N39.0 - Urinary tract infection, site not specified; R31.9 - Hematuria, unspecified Is this a current diagnosis for this admission?: Yes Plan: Urine culture is pending. The patient will be on intravenous ceftriaxone until identification and sensitivities are available. 01/08/20-urine culture came back positive for gram-positive cocci in chains. Plan is to continue IV ceftriaxone at this time. 01/09/2020-urine culture came back positive for E faecalis. Presently on Rocephin IV plan is to switch medication to levofloxacin 40 mg p.o. daily. (3) Hyponatremia Is this a current diagnosis for this admission?: Yes Plan: Sodium levels should begin to correct with normal saline. We will monitor closely. Once fully hydrated the patient might benefit from chronic fluid restriction. 01/08/20-serum sodium came up to 127.7. Patient is on normal saline at 125 cc/h with potassium supplementations plan is to decrease the rate to 75 cc/h. 01/09/2020-serum sodium is improving it is 129.8 today. Patient is on normal saline at 75 cc/h. Plan is to decrease the fluids to 50 cc/h from today. Because of hyponatremia may be secondary to medications. (4) Coronary artery disease Qualifiers: Coronary Disease-Associated Artery/Lesion type: [place] artery [place] vs. transplanted heart: [place] heart Associated angina: without angina Qualified Code(s): I25.10 - Atherosclerotic heart disease of [place] coronary artery witho ut angina pectoris Is this a current diagnosis for this admission?: Yes Plan: We will continue her aspirin and statin therapy. We will add back her antihypertensive medications based on her blood pressure. (5) Hypertension Qualifiers: Hypertension type: essential hypertension Qualified Code(s): I10 - Essential (primary) hypertension Is this a current diagnosis for this admission?: No Plan: Usually on multiple medications. Blood pressure was low on admission. We will start with low-dose metoprolol. As blood pressure improves gradually add back antihypertensive medications. 01/08/2020-patient blood pressure today is 115/75. Stable. Plan is to continue metoprolol 25 mg p.o. twice daily at this time. 01/09/2020-blood pressure today is 122/60. Stable. Plan is to continue metoprolol 25 mg p.o. twice a day. (6) Hyperglycemia due to diabetes mellitus Is this a current diagnosis for this admission?: Yes Plan: Controlled carbohydrate diet. Accu-Cheks and sliding scale. Continue home NPH regimen of 25 units in the morning and 20 units in the evening. 01/08/2020-patient blood sugar is 82 this morning. Plan is to decrease lantus to 15 units before meals and 15 units nightly. Check for hemoglobin A1c. Diet exercise complicated medications discussed with the patient. 01/09/2020-blood sugar this morning is 97. Patient is receiving Lantus 15 units before meals and 15 units at night. Hemoglobin A1c is 7.1. Diet exercise weig ht loss lifestyle modifications discussed with the patient again. (7) Hypomagnesemia Is this a current diagnosis for this admission?: Yes Plan: Supplement magnesium and monitor 01/08/2020-serum magnesium today is 2.0. Stable. (8) COPD (chronic obstructive pulmonary disease) with chronic bronchitis Is this a current diagnosis for this admission?: Yes Plan: Asymptomatic at this time. Only uses rescue inhaler at home. (9) Hypotension Qualifiers: Hypotension type: hypotension due to hypovolemia Qualified Code(s): I95.89 - Other hypotension; E86.1 - Hypovolemia Is this a current diagnosis for this admission?: Yes Plan: Resolved with IV fluids. Gradually resume antihypertensive medications as blood pressure increases. 01/08/2020-blood pressure today is 115/75. Stable. Plan is to decrease the IV fluids to 75 cc/h. 01/09/2020-hypotension is resolving. Latest blood pressure is 122/60. Plan is to decrease the IV fluids to 50 cc/h from today. (10) Depression Qualifiers: Depression Type: unspecified Qualified Code(s): F32.9 - Major depressive disorder, single episode, unspecified Is this a current diagnosis for this admission?: No Plan: Continue Celexa - Time Anticipated Discharge Disposition: Home, Self Care Anticipated Discharge Timeframe: within 48 hours
[2020-01-09] MEDS: INSULIN LISPRO 100 UNIT/ML 3 ML VIAL SUBCUT SCH ×4 (11:05→21:51)
[2020-01-09] MEDS: INSULIN NPH (ISOPHANE), HUMAN 100 UNIT/ML 3 ML SUBCUT SCH ×2 (11:08→21:53)
[2020-01-09] MEDS: CALCIUM CARBONATE 600 MG/VITAMIN D3 400 UNIT TABLET PO SCH (11:10)
[2020-01-09] MEDS: FOLIC ACID 1 MG TABLET PO SCH (11:10)
[2020-01-09] MEDS: APIXABAN 5 MG TABLET PO SCH ×2 (11:10→17:53)
[2020-01-09] MEDS: CITALOPRAM HYDROBROMIDE 20 MG TABLET PO SCH (11:10)
[2020-01-09] MEDS: CETIRIZINE 10 MG TABLET PO SCH (11:11)
[2020-01-09] MEDS: LEVOFLOXACIN 500 MG TABLET PO SCH (11:11)
[2020-01-09] MEDS: METOPROLOL TARTRATE 25 MG TABLET PO SCH ×2 (11:11→21:42)
[2020-01-09] MEDS ORDERED: PROPOFOL INJ 200 MG/20 ML VIAL IV ONE (13:53)
[2020-01-09] MEDS ORDERED: LIDOCAINE 2% INJ-PF (100 MG/5 ML) SYRINGE ONE (13:53)
--- NOTE | 2020-01-09 14:37 | Progress Note ---
Provider Note Provider Note: DIRECT CURRENT CARDIOVERSION Date : January 09, 2020 Procedure: Direct current cardioversion Anesthesia: General anesthesia Indication: Atrial fibrillation Clinical history: 64-year-old lady who developed new onset atrial fibrillation and was initially managed with rate control. She was admitted to hospital last week. At that time we performed transesophageal echocardiogram which showed preserved left ventricular ejection fraction and no left atrial appendage thrombus. Cardioversion was performed and was successful. Upon discharge she developed a urinary tract infection and subsequently was found to be in atrial fibrillation again. Cardioversion was requested yet again. Patient had been maintained on apixaban 5 mg twice daily post cardioversion and has not missed any doses-in fact I verbally affirmed with the patient. PROCEDURE The patient was brought to the holding area fasting and nonsedated state. Informed consent was obtained prior to the procedure. General anesthesia was administered. Please see anesthesia notes for medication details. Patient's presenting rhythm was atrial fibrillation with rapid ventricular response. The patient's EKG and vital signs were monitored throughout. Once the patient was comfortably sedated a single direct current biphasic 200 J shock was administered across defibrillator patches applied in anteroposterior fashion across the chest. This resulted in prompt rastafari of sinus rhythm with frequent premature atrial complexes. The patient tolerated the procedure well. Conclusion Successful conversion of atrial fibrillation to sinus rhythm Plan Continue systemic anticoagulation-apixaban 5 mg twice daily without interruption Continue low-dose beta-elizabet
[2020-01-09] MEDS: OXYCODONE-ACETAMINOPHEN 5-325 MG TABLET PO PRN (17:53)
[2020-01-09] MEDS: ATORVASTATIN CALCIUM 40 MG TABLET PO SCH (21:41)
[2020-01-09 22:31] LABS: APPEARANCE,URINE CLEAR; BILIRUBIN,URINE NEGATIVE (NEGATIVE); COLOR,URINE YELLOW; GLUCOSE, URINE >=500 mg/dL (NEGATIVE); KETONES,URINE 20 mg/dL (NEGATIVE); LEUKOCYTE ESTERASE,URINE MODERATE (NEGATIVE); NITRITE,URINE NEGATIVE (NEGATIVE); PROTEIN,URINE 100 mg/dL (NEGATIVE); UROBILINOGEN,URINE NEGATIVE mg/dL (<2.0)
[2020-01-10] MEDS: OXYCODONE-ACETAMINOPHEN 5-325 MG TABLET PO PRN ×3 (00:20→21:23)
[2020-01-10] MEDS: PANTOPRAZOLE SODIUM 40 MG TABLET.DR PO SCH (05:58)
[2020-01-10] MEDS: LEVOTHYROXINE SODIUM 0.075 MG TABLET PO SCH (05:58)
[2020-01-10 07:06] LABS: ABSOLUTE BASOPHILS # (AUTO) 0.1 10^3/uL (0.0-0.2); ABSOLUTE EOSINOPHILS # (AUTO) 0.3 10^3/uL (0.0-0.6); ABSOLUTE MONOCYTES (AUTO) 0.3 10^3/uL (0.1-1.4); ABSOLUTE NEUT (AUTO) 3.7 10^3/uL (1.7-8.2); EOSINOPHILS % (AUTO) 5.5 % (0-6); HEMATOCRIT 29.7 % (36.0-47.0); LYMPHOCYTES % (AUTO) 18.9 % (13-45); MEAN CORPUSCULAR HEMOGLOBIN 28.2 pg (27.0-33.4); MEAN CORPUSCULAR HGB CONC 33.9 g/dL (32.0-36.0); MEAN CORPUSCULAR VOLUME 83 fl (80-97); MONOCYTES % (AUTO) 6.4 % (3-13); PLATELET COUNT 215 10^3/uL (150-450); RED BLOOD COUNT 3.56 10^6/uL (3.72-5.28); RED CELL DISTRIBUTION WIDTH 15.5 % (11.5-14.0); SEGMENTED NEUTROPHILS % (AUTO) 68.2 % (42-78); TOTAL CELLS COUNTED % (AUTO) 100 %; WHITE BLOOD COUNT 5.4 10^3/uL (4.0-10.5)
[2020-01-10 07:17] LABS: ALBUMIN 3.7 g/dL (3.5-5.0); ALKALINE PHOSPHATASE 113 U/L (38-126); ANION GAP 8 (5-19); ASPARTATE AMINO TRANSFERASE 33 U/L (14-36); BILIRUBIN,DIRECT 0.1 mg/dL (0.0-0.4); BILIRUBIN,TOTAL 0.5 mg/dL (0.2-1.3); BLOOD UREA NITROGEN 12 mg/dL (7-20); CALCIUM 8.5 mg/dL (8.4-10.2); CARBON DIOXIDE 24 mmol/L (22-30); CHLORIDE 98 mmol/L (98-107); GLUCOSE 142 mg/dL (75-110); PHOSPHORUS 2.4 mg/dL (2.5-4.5); POTASSIUM 4.7 mmol/L (3.6-5.0); TOTAL PROTEIN 7.5 g/dL (6.3-8.2)
[2020-01-10] MEDS: METOPROLOL TARTRATE PF/INJ 5 MG/5 ML SDV IV PRN (08:05)
[2020-01-10] MEDS: INSULIN LISPRO 100 UNIT/ML 3 ML VIAL SUBCUT SCH ×4 (08:39→22:31)
[2020-01-10] MEDS: INSULIN NPH (ISOPHANE), HUMAN 100 UNIT/ML 3 ML SUBCUT SCH ×2 (08:41→22:32)
--- NOTE | 2020-01-10 09:18 | PDOC PROGRESS REPORT ---
Subjective Progress Note for:: 01/10/20 Subjective:: 64 year old female well-known to me from her recent admission. She has a history of coronary artery disease and was recently cardioverted after EL exam last week. She states that she felt good when she got out of the hospital. On Tuesday she began to feel tired and she felt "off ". When she woke up today she states that she still felt quite tired but thought if she took a shower she would feel better. She was in the shower when she became lightheaded and "fe ll". She states she fell against the door which opened thankfully and did not break. She had several sore areas but no significant injuries. She was going to her primary care provider's office and was instructed to go to the hospital. In the emergency department she was found to be hypotensive, back in atrial fibrillation with rapid ventricular response with a sodium of 121, potassium 3.5, magnesium 1.4 and a glucose of 232. Her urinalysis was markedly positive suggesting infection. The patient will receive IV fluids and antibiotics. We will correct her electrolytes. Her troponin was 0.08 and this could be due to the rapid ventricular response however I will obtain serial troponin studies. The patient will be admitted to IMCU. 01/08/20-patient is comfortable in the bed communicating well. Still tachycardic. Serum sodium came up to 127.7. Patient is receiving IV Rocephin for UTI. Discussed with Dr. Smith is going to come and see the patient. 01/09/[id number]-jcyp-old female admitted with atrial for with rapid ventricular rate. Patient has a recent cardioversion at that time found to have a normal ejection fraction no right atrial appendage thrombus seen. Patient is scheduled for cardioversion again this afternoon. Plan is to continue Eliquis at this time and the patient is n.p.o. from midnight. 01/10/20-patient has cardioversion yesterday twice, patient is back in A. fib with heart rate is around 124 this morning. I spoke to Dr. Smith his recommendation is to adjust the beta-blockers at this time. Plan is to continue Eliquis at this time. Reason For Visit: ATRIAL FIBRILLATION WITH RAPID VENTRICULAR Physical Exam Vital Signs: Temp Pulse Resp BP Pulse Ox 98.2 F 144 H 19 145/89 H 98 01/10/20 07:35 01/10/20 07:35 01/10/20 07:35 01/10/20 07:35 01/10/20 07:35 Intake & Output 01/09/20 01/10/20 01/11/20 06:59 06:59 06:59 Intake Total 2384 1860 Output Total 400 Balance 1983 1859 Weight 74.6 kg 74.9 kg General appearance: PRESENT: no acute distress, well-developed Head exam: PRESENT: atraumatic Eye exam: PRESENT: PERRLA Mouth exam: PRESENT: dry mucosa Teeth exam: PRESENT: poor dentation Neck exam: ABSENT: carotid bruit, JVD, lymphadenopathy, thyromegaly Respiratory exam: PRESENT: decreased breath sounds Cardiovascular exam: PRESENT: irregular rhythm, tachycardia Pulses: PRESENT: normal dorsalis pedis pul GI/Abdominal exam: PRESENT: normal bowel sounds, soft. ABSENT: distended, guarding, mass, organolmegaly, rebound, tenderness Rectal exam: PRESENT: deferred Extremities exam: PRESENT: full ROM. ABSENT: calf tenderness, clubbing, pedal edema Neurological exam: PRESENT: alert, awake, oriented to person, oriented to place, oriented to time, oriented to situation, CN II-XII grossly intact. ABSENT: motor sensory deficit Psychiatric exam: PRESENT: appropriate affect, normal mood. ABSENT: homicidal ideation, suicidal ideation Results Laboratory Results: 01/10/20 06:39 01/10/20 06:39 01/09/20 01/10/20 01/10/20 22:09 06:39 06:39 WBC 5.4 RBC 3.56 L Hgb 10.0 L Hct 29.7 L MCV 83 MCH 28.2 MCHC 33.9 RDW 15.5 H Plt Count 215 Seg Neutrophils % 68.2 Sodium 129.8 L Potassium 4.7 Chloride 98 Carbon Dioxide 24 Anion Gap 8 BUN 12 Creatinine 0.77 Est GFR ( Amer) > 60 Glucose 142 H Calcium 8.5 Phosphorus 2.4 L Magnesium 1.6 Total Bilirubin 0.5 AST 33 Alkaline Phosphatase 113 Total Protein 7.5 Albumin 3.7 Urine Color YELLOW Urine Appearance CLEAR Urine pH 6.0 Ur Specific [place] 1.020 Urine Protein 100 H Urine Glucose (UA) >=500 H Urine Ketones 20 H Urine Blood NEGATIVE Urine Nitrite NEGATIVE Ur Leukocyte Esterase MODERATE H Urine WBC (Auto) 7 Urine RBC (Auto) 3 01/07/20 01/07/20 01/07/20 13:15 13:41 17:36 Creatine Kinase 73 Troponin I 0.081 0.081 01/07/20 01/08/20 23:25 05:25 Creatine Kinase Troponin I 0.064 0.060 Impressions: Chest X-Ray 01/07/20 12:28 IMPRESSION: 1. Borderline cardiomegaly. No evidence for failure. 2. No acute pulmonary findings. Assessment and Plan - Diagnosis (1) Atrial fibrillation with RVR Is this a current diagnosis for this admission?: Yes Plan: The patient is normally on bisoprolol 10 mg daily. I will use small doses of metoprolol tartrate initially because of her low blood pressure. PRN intravenous metoprolol is available as well. She is already on apixaban. 01/08/2020-patient is on apixaban came in with A. fib with RVR patient recently had a cardioversion/EL Dr. Schwarz is going to evaluate the patient for further management. Presently patient is on metoprolol 25 mg p.o. every 12 hours and metoprolol 2.5 mg IV every 6 hours as needed. 01/09/2020-patient admitted with atrial fib with rapid ventricular rate on Eliquis. Patient is going for cardioversion today. 01/10/2020-patient is back in A. fib with RVR heart rate is around 124. Plan is to continue metoprolol 2.5 mg IV every 6 as needed, dose of metoprolol is increased to 50 mg p.o. every [address] smith is notified. Plan is to continue Eliquis at this time. (2) Urinary tract infection Qualifiers: Urinary tract infection type: site unspecified Hematuria presence: with hematuria Qualified Code(s): N39.0 - Urinary tract infection, site not specified; R31.9 - Hematuria, unspecified Is this a current diagnosis for this admission?: Yes Plan: Urine culture is pending. The patient will be on intravenous ceftriaxone until identification and sensitivities are available. 01/08/20-urine culture came back positive for gram-positive cocci in chains. Plan is to continue IV ceftriaxone at this time. 01/09/2020-urine culture came back positive for E faecalis. Presently on Rocephin IV plan is to switch medication to levofloxacin 500 mg p.o. daily. 01/10/2020-urine culture is positive for Enterococcus faecalis on levofloxacin 500 mg daily. (3) Hyponatremia Is this a current diagnosis for this admission?: Yes Plan: Sodium levels should begin to correct with normal saline. We will monitor closely. Once fully hydrated the patient might benefit from chronic fluid restriction. 01/08/20-serum sodium came up to 127.7. Patient is on normal saline at 125 cc/h with potassium supplementations plan is to decrease the rate to 75 cc/h. 01/09/2020-serum sodium is improving it is 129.8 today. Patient is on normal saline at 75 cc/h. Plan is to decrease the fluids to 50 cc/h from today. Because of hyponatremia may be secondary to medications. 01/10/2020-serum sodium is 129.8. Stable. Presently on IV fluids 50 cc/h. Plan is to continue to for the labs on regular basis. (4) Coronary artery disease Qualifiers: Coronary Disease-Associated Artery/Lesion type: [place] artery [place] vs. transplanted heart: [place] heart Associated angina: without angina Qualified Code(s): I25.10 - Atherosclerotic heart disease of [place] coronary artery w [facility] angina pectoris Is this a current diagnosis for this admission?: Yes Plan: We will continue her aspirin and statin therapy. We will add back her antihypertensive medications based on her blood pressure. (5) Hypertension Qualifiers: Hypertension type: essential hypertension Qualified Code(s): I10 - Essential (primary) hypertension Is this a current diagnosis for this admission?: No Plan: Usually on multiple medications. Blood pressure was low on admission. We will start with low-dose metoprolol. As blood pressure improves gradually add back antihypertensive medications. 01/08/2020-patient blood pressure today is 115/75. Stable. Plan is to continue metoprolol 25 mg p.o. twice daily at this time. 01/09/2020-blood pressure today is 122/60. Stable. Plan is to continue metoprolol 25 mg p.o. twice a day. 01/10/2020-blood pressure is 140/60. Stable. Metoprolol dose is increased to 50 mg p.o. twice daily and plan is to stop IV fluids from today. (6) Hyperglycemia due to diabetes mellitus Is this a current diagnosis for this admission?: Yes Plan: Controlled carbohydrate diet. Accu-Cheks and sliding scale. Continue home NPH regimen of 25 units in the morning and 20 units in the evening. 01/08/2020-patient blood sugar is 82 this morning. Plan is to decrease lantus to 15 units before meals and 15 units nightly. Check for hemoglobin A1c. Diet exercise complicated medications discussed with the patient. 01/09/2020-blood sugar this morning is 97. Patient is receiving Lantus 15 units before meals and 15 units at night. Hemoglobin A1c is 7.1. Diet exercise weight loss lifestyle modifications discussed with the patient again. 01/10/2020-latest blood sugar is 142. Plan is to continue Lantus 15 units before meals and 15 units at bedtime. (7) Hypomagnesemia Is this a current diagnosis for this admission?: Yes Plan: Supplement magnesium and monitor 01/08/2020-serum magnesium today is 2.0. Stable. 1320-serum magnesium is 1.6 to start her on magnesium oxide 400 mg p.o. twice daily. (8) COPD (chronic obstructive pulmonary disease) with chronic bronchitis Is this a current diagnosis for this admission?: Yes Plan: Asymptomatic at this time. Only uses rescue inhaler at home. (9) Hypotension Qualifiers: Hypotension type: hypotension due to hypovolemia Qualified Code(s): I95.89 - Other hypotension; E86.1 - Hypovolemia Is this a current diagnosis for this admission?: Yes Plan: Resolved with IV fluids. Gradually resume antihypertensive medications as blood pressure increases. 01/08/2020-blood pressure today is 115/75. Stable. Plan is to decrease the IV fluids to 75 cc/h. 01/09/2020-hypotension is resolving. Latest blood pressure is 122/60. Plan is to decrease the IV fluids to 50 cc/h from today. (10) Depression Qualifiers: Depression Type: unspecified Qualified Code(s): F32.9 - Major depressive disorder, single episode, unspecified Is this a current diagnosis for this admission?: No Plan: Continue Celexa - Time Anticipated Discharge Disposition: Home, Self Care Anticipated Discharge Timeframe: within 48 hours
[2020-01-10] MEDS ORDERED: METOPROLOL TARTRATE 25 MG TABLET PO SCH (10:00)
[2020-01-10] MEDS ORDERED: METOPROLOL TARTRATE 50 MG TABLET PO SCH ×2 (10:00→22:00)
[2020-01-10] MEDS: APIXABAN 5 MG TABLET PO SCH ×2 (10:25→17:10)
[2020-01-10] MEDS: CALCIUM CARBONATE 600 MG/VITAMIN D3 400 UNIT TABLET PO SCH (10:26)
[2020-01-10] MEDS: CETIRIZINE 10 MG TABLET PO SCH (10:26)
[2020-01-10] MEDS: CITALOPRAM HYDROBROMIDE 20 MG TABLET PO SCH (10:26)
[2020-01-10] MEDS: LEVOFLOXACIN 500 MG TABLET PO SCH (10:26)
[2020-01-10] MEDS: FOLIC ACID 1 MG TABLET PO SCH (10:27)
[2020-01-10] MEDS: MAGNESIUM OXIDE 400 MG TABLET PO SCH ×2 (10:27→17:09)
--- NOTE | 2020-01-10 15:28 | EKG REPORT ---
SEVERITY:- ABNORMAL ECG - ATRIAL FIBRILLATION LOW VOLTAGE IN FRONTAL LEADS CONSIDER LEFT VENTRICULAR HYPERTROPHY : Confirmed by: Marcus Costello MD 10-Jan-2020 15:27:44
[2020-01-10] MEDS ORDERED: ATROPINE SULFATE INJ 1 MG/10 ML DISP.SYRIN IV ONE (15:34)
--- NOTE | 2020-01-10 16:36 | PDOC PROGRESS REPORT ---
Subjective Progress Note for:: 01/10/20 Subjective:: Patient was cardioverted back to sinus rhythm yesterday. This morning she went back into atrial fibrillation. Beta-elizabet dose was increased mildly. Patient did convert to sinus rhythm briefly with a 3.8-second pause but went back into atrial fibrillation. She is relatively asymptomatic on both counts. At the time of my evaluation she is comfortable and resting in bed with spouse by the bedside. Continue to receive antibiotics for the treatment of urinary tract infection. Reason For Visit: ATRIAL FIBRILLATION WITH RAPID VENTRICULAR Physical Exam Vital Signs: Temp Pulse Resp BP Pulse Ox 97.6 F 82 18 153/77 H 99 01/10/20 12:03 01/10/20 14:00 01/10/20 12:03 01/10/20 12:03 01/10/20 12:03 Intake & Output 01/09/20 01/10/20 01/11/20 06:59 06:59 06:59 Intake Total 2384 1860 240 Output Total 400 Balance 1983 1860 240 Weight 74.6 kg 74.9 kg 74.9 kg General appearance: PRESENT: no acute distress, cooperative, well-developed, well-nourished Head exam: PRESENT: atraumatic, normocephalic Eye exam: PRESENT: conjunctiva pink Mouth exam: PRESENT: moist Respiratory exam: PRESENT: clear to auscultation luz maria, symmetrical, unlabored Cardiovascular exam: PRESENT: irregular rhythm, +S1, +S2 Pulses: PRESENT: normal radial pulses GI/Abdominal exam: PRESENT: soft Rectal exam: PRESENT: deferred Neurological exam: PRESENT: alert, awake, oriented to person, oriented to place, oriented to time, oriented to situation Psychiatric exam: PRESENT: appropriate affect Skin exam: PRESENT: dry, intact, normal color Results Laboratory Results: 01/10/20 06:39 01/10/20 06:39 01/09/20 01/10/20 01/10/20 22:09 06:39 06:39 WBC 5.4 RBC 3.56 L Hgb 10.0 L Hct 29.7 L MCV 83 MCH 28.2 MCHC 33.9 RDW 15.5 H Plt Count 215 Seg Neutrophils % 68.2 Sodium 129.8 L Potassium 4.7 Chloride 98 Carbon Dioxide 24 Anion Gap 8 BUN 12 Creatinine 0.77 Est GFR ( Amer) > 60 Glucose 142 H Calcium 8.5 Phosphorus 2.4 L Magnesium 1.6 Total Bilirubin 0.5 AST 33 Alkaline Phosphatase 113 Total Protein 7.5 Albumin 3.7 Urine Color YELLOW Urine Appearance CLEAR Urine pH 6.0 Ur Specific [place] 1.020 Urine Protein 100 H Urine Glucose (UA) >=500 H Urine Ketones 20 H Urine Blood NEGATIVE Urine Nitrite NEGATIVE Ur Leukocyte Esterase MODERATE H Urine WBC (Auto) 7 Urine RBC (Auto) 3 01/07/20 14:20 Clean Catch Midstream Urine Culture - Final Enterococcus Faecalis(Group D) Urogenital Carlie 01/07/20 01/07/20 01/07/20 13:15 13:41 17:36 Creatine Kinase 73 Troponin I 0.081 0.081 01/07/20 01/08/20 23:25 05:25 Creatine Kinase Troponin I 0.064 0.060 EKG Comments: Review of telemetry shows 3.8-second pause postconversion to sinus rhythm. However patient later on developed atrial fibrillation again We recommend continued measures for rate control especially given ongoing urinary tract infection Would not pursue cardioversion during this admission Continue systemic anticoagulation with apixaban without interruption If the heart rate can be controlled in the low 100s I suspect she can be disc harged in the next 24 hours. Plan then would be to pursue outpatient cardioversion once the infection has subsided. Impressions: Chest X-Ray 01/07/20 12:28 IMPRESSION: 1. Borderline cardiomegaly. No evidence for failure. 2. No acute pulmonary findings. Assessment & Plan - Diagnosis (1) Atrial fibrillation with RVR Is this a current diagnosis for this admission?: Yes (2) Urinary tract infection Qualifiers: Urinary tract infection type: site unspecified Hematuria presence: with he maturia Qualified Code(s): N39.0 - Urinary tract infection, site not spec ified; R31.9 - Hematuria, unspecified Is this a current diagnosis for this admission?: Yes Plan: Continue antibiotic therapy. Clinically improved.
[2020-01-10] MEDS: METOPROLOL TARTRATE 25 MG TABLET PO SCH (21:23)
[2020-01-10] MEDS: ATORVASTATIN CALCIUM 40 MG TABLET PO SCH (21:23)
[2020-01-11] MEDS: LEVOTHYROXINE SODIUM 0.075 MG TABLET PO SCH (05:50)
[2020-01-11] MEDS: PANTOPRAZOLE SODIUM 40 MG TABLET.DR PO SCH (05:51)
[2020-01-11 06:14] LABS: HEMATOCRIT 27.3 % (36.0-47.0); HEMOGLOBIN 9.3 g/dL (12.0-15.5); MEAN CORPUSCULAR HEMOGLOBIN 28.2 pg (27.0-33.4); MEAN CORPUSCULAR HGB CONC 34.3 g/dL (32.0-36.0); MEAN CORPUSCULAR VOLUME 82 fl (80-97); PLATELET COUNT 190 10^3/uL (150-450); RED BLOOD COUNT 3.31 10^6/uL (3.72-5.28); RED CELL DISTRIBUTION WIDTH 15.3 % (11.5-14.0); WHITE BLOOD COUNT 5.4 10^3/uL (4.0-10.5)
[2020-01-11] MEDS: INSULIN LISPRO 100 UNIT/ML 3 ML VIAL SUBCUT SCH (10:11)
[2020-01-11] MEDS: CALCIUM CARBONATE 600 MG/VITAMIN D3 400 UNIT TABLET PO SCH (10:13)
[2020-01-11] MEDS: LEVOFLOXACIN 500 MG TABLET PO SCH (10:13)
[2020-01-11] MEDS: METOPROLOL TARTRATE 25 MG TABLET PO SCH (10:14)
[2020-01-11] MEDS: APIXABAN 5 MG TABLET PO SCH (10:14)
[2020-01-11] MEDS: CETIRIZINE 10 MG TABLET PO SCH (10:14)
[2020-01-11] MEDS: MAGNESIUM OXIDE 400 MG TABLET PO SCH (10:14)
[2020-01-11] MEDS: FOLIC ACID 1 MG TABLET PO SCH (10:15)
[2020-01-11] MEDS: CITALOPRAM HYDROBROMIDE 20 MG TABLET PO SCH (10:16)
[2020-01-11] MEDS: INSULIN NPH (ISOPHANE), HUMAN 100 UNIT/ML 3 ML SUBCUT SCH (10:17)
[2020-01-11 11:30] VITALS: BP 132/53
--- NOTE | 2020-01-11 12:25 | PDOC DISCHARGE SUMMARY ---
Impression - Admit/DC Date/PCP Admission Date/Primary Care Provider: 01/07/20 17:41 PRINCE GTZ MD Discharge Date: 01/11/20 - Discharge Diagnosis (1) Atrial fibrillation with RVR Is this a current diagnosis for this admission?: Yes (2) Urinary tract infection Is this a current diagnosis for this admission?: Yes (3) Hyponatremia Is this a current diagnosis for this admission?: Yes (4) Coronary artery disease Is this a current diagnosis for this admission?: Yes (5) Hypertension Is this a current diagnosis for this admission?: No (6) Hyperglycemia due to diabetes mellitus Is this a current diagnosis for this admission?: Yes (7) Hypomagnesemia Is this a current diagnosis for this admission?: Yes (8) COPD (chronic obstructive pulmonary disease) with chronic bronchitis Is this a current diagnosis for this admission?: Yes (9) Hypotension Is this a current diagnosis for this admission?: Yes (10) Depression Is this a current diagnosis for this admission?: No - Assessment Summary: (1) Atrial fibrillation with RVR Is this a current diagnosis for this admission?: Yes Plan: The patient is normally on bisoprolol 10 mg daily. I will use small doses of metoprolol tartrate initially because of her low blood pressure. PRN intravenous metoprolol is available as well. She is already on apixaban. 01/08/2020-patient is on apixaban came in with A. fib with RVR patient recently had a cardioversion/EL Dr. Schwarz is going to evaluate the patient for further management. Presently patient is on metoprolol 25 mg p.o. every 12 hours and metoprolol 2.5 mg IV every 6 hours as needed. 01/09/2020-patient admitted with atrial fib with rapid ventricular rate on Eliquis. Patient is going for cardioversion today. 01/10/2020-patient is back in A. fib with RVR heart rate is around 124. Plan is to continue metoprolol 2.5 mg IV every 6 as needed, dose of metoprolol is increased to 50 mg p.o. every [address] velazquez is notified. Plan is to continue Eliquis at this time. 01/11/2020-patient admitted with A. fib with RVR cardioversion was done yesterday twice. Patient converted to sinus rhythm last night going home on metoprolol 25 mg p.o. twice daily and Eliquis. Dr. Velazquez thinks trigger factor for A. fib with RVR at this time is the urinary tract infection and the urine cultures came back positive for Enterococcus faecalis discharged home on levofloxacin. (2) Urinary tract infection Qualifiers: Urinary tract infection type: site unspecified Hematuria presence: with hematuria Qualified Code(s): N39.0 - Urinary tract infection, site not specified; R31.9 - Hematuria, unspecified Is this a current diagnosis for this admission?: Yes Plan: Urine culture is pending. The patient will be on intravenous ceftriaxone until identification and sensitivities are available. 01/08/20-urine culture came back positive for gram-positive cocci in chains. Plan is to continue IV ceftriaxone at this time. 01/09/2020-urine culture came back positive for E faecalis. Presently on Rocephin IV plan is to switch medication to levofloxacin 500 mg p.o. daily. 01/10/2020-urine culture is positive for Enterococcus faecalis on levofloxacin 500 mg daily. 01/11/2020-prescription was given for levofloxacin 5 mg p.o. daily for 5 days. (3) Hyponatremia Is this a current diagnosis for this admission?: Yes Plan: Sodium levels should begin to correct with normal saline. We will monitor closely. Once fully hydrated the patient might benefit from chronic fluid restriction. 01/08/20-serum sodium came up to 127.7. Patient is on normal saline at 125 cc/h with potassium supplementations plan is to decrease the rate to 75 cc/h. 01/09/2020-serum sodium is improving it is 129.8 today. Patient is on normal saline at 75 cc/h. Plan is to decrease the fluids to 50 cc/h from today. Because of hyponatremia may be secondary to medications. 01/10/2020-serum sodium is 129.8. Stable. Presently on IV fluids 50 cc/h. Plan is to continue to for the labs on regular basis. 01/11/2020-serum sodium is stable. Patient is asymptomatic. Advised to continue the present management. (4) Coronary artery disease Qualifiers: Coronary Disease-Associated Artery/Lesion type: [place] artery [place] vs. transplanted heart: [place] heart Associated angina: without angina Qualified Code(s): I25.10 - Atherosclerotic heart disease of [place] coronary artery without angina pectoris Is this a current diagnosis for this admission?: Yes Plan: We will continue her aspirin and statin therapy. We will add back her antihypertensive medications based on her blood pressure. (5) Hypertension Qualifiers: Hypertension type: essential hypertension Qualified Code(s): I10 - Essential (primary) hypertension Is this a current diagnosis for this admission?: No Plan: Usually on multiple medications. Blood pressure was low on admission. We will start with low-dose metoprolol. As blood pressure improves gradually add back antihypertensive medications. 01/08/2020-patient blood pressure today is 115/75. Stable. Plan is to continue metoprolol 25 mg p.o. twice daily at this time. 01/09/2020-blood pressure today is 122/60. Stable. Plan is to continue metoprolol 25 mg p.o. twice a day. 01/10/2020-blood pressure is 140/60. Stable. Metoprolol dose is increased to 50 mg p.o. twice daily and plan is to stop IV fluids from today. (6) Hyperglycemia due to diabetes mellitus Is this a current diagnosis for this admission?: Yes Plan: Controlled carbohydrate diet. Accu-Cheks and sliding scale. Continue home NPH regimen of 25 units in the morning and 20 units in the evening. 01/08/2020-patient blood sugar is 82 this morning. Plan is to decrease lantus to 15 units before meals and 15 units nightly. Check for hemoglobin A1c. Diet exercise complicated medications discussed with the patient. 01/09/2020-blood sugar this morning is 97. Patient is receiving Lantus 15 units before meals and 15 units at night. Hemoglobin A1c is 7.1. Diet exercise weight loss lifestyle modifications discussed with the patient again. 01/10/2020-latest blood sugar is 142. Plan is to continue Lantus 15 units before meals and 15 units at bedtime. 01/11/2020-patient blood sugar this morning is 197. Patient is advised to resume her home medications at this time. (7) Hypomagnesemia Is this a current diagnosis for this admission?: Yes Plan: Supplement magnesium and monitor 01/08/2020-serum magnesium today is 2.0. Stable. 1320-serum magnesium is 1.6 to start her on magnesium oxide 400 mg p.o. twice daily. (8) COPD (chronic obstructive pulmonary disease) with chronic bronchitis Is this a current diagnosis for this admission?: Yes Plan: Asymptomatic at this time. Only uses rescue inhaler at home. (9) Hypotension Qualifiers: Hypotension type: hypotension due to hypovolemia Qualified Code(s): I95.89 - Other hypotension; E86.1 - Hypovolemia Is this a current diagnosis for this admission?: Yes Plan: Resolved with IV fluids. Gradually resume antihypertensive medications as blood pressure increases. 01/08/2020-blood pressure today is 115/75. Stable. Plan is to decrease the IV fluids to 75 cc/h. 01/09/2020-hypotension is resolving. Latest blood pressure is 122/60. Plan is to decrease the IV fluids to 50 cc/h from today. (10) Depression Qualifiers: Depression Type: unspecified Qualified Code(s): F32.9 - Major depressive disorder, single episode, unspecified Is this a current diagnosis for this admission?: No Plan: Continue Celexa - Additional Information Resuscitation Status: Full Code Discharge Diet: Diabetic Discharge Activity: Activity As Tolerated Referrals: PRINCE GTZ MD [Primary Care Provider] - 01/21/20 1:15 pm JANE ARENAS MD [ACTIVE STAFF] - 01/22/20 9:30 am Prescriptions: Apixaban [Eliquis 5 mg Tablet] 5 mg PO BID 30 Days #60 tablet Levofloxacin [Levaquin 500 mg Tablet] 500 mg PO DAILY 5 Days #5 tablet Metoprolol Tartrate [Lopressor 25 mg Tablet] 25 mg PO Q12 30 Days #60 tablet Home Medications: Atorvastatin Calcium [Lipitor 20 mg Tablet] 20 mg PO QHS 12/24/19 Citalopram Hydrobromide [Celexa] 10 mg PO DAILY 12/24/19 Folic Acid [Folvite 1 mg Tablet] 1 mg PO DAILY 12/24/19 Insulin Lispro [Humalog Kwikpen U-100] 15 unit SQ TID 12/24/19 Insulin NPH Human Isophane [Novolin N Flexpen] 20 unit SQ QPM 12/24/19 Insulin NPH Human Isophane [Novolin N Flexpen] 25 unit SQ QAM 12/24/19 Levothyroxine Sodium 88 mcg PO SUSA@0600 12/24/19 Aspirin [Aspir-Low] 81 mg PO DAILY 12/25/19 Calcium Carbonate/Vitamin D3 [Calcium 600-D3 20Mcg(800 Unit)] 1 tab PO QHS 12/25/19 Cetirizine HCl [Zyrtec] 10 mg PO HSP PRN 12/25/19 Levothyroxine Sodium [Levo-T] 75 mcg PO MOTUWETHFR@1000 12/25/19 Multivit with Calcium,Iron,Min [Multiple Vitamins For Women] 1 each PO DAILY 12/25/19 Acetaminophen [Tylenol 325 mg Tablet] 650 mg PO Q4HP PRN tablet 12/27/19 Albuterol Sulfate [Proair HFA Inhalation Aerosol 8.5 gm MDI] 2 puff IH Q4HP PRN #1 hfa.aer.ad 12/27/19 Pantoprazole Sodium [Protonix [address] Tablet] 40 mg PO QAM #30 tablet.dr 12/27/19 Apixaban [Eliquis 5 mg Tablet] 5 mg PO BID tablet 01/11/20 Apixaban [Eliquis 5 mg Tablet] 5 mg PO BID 30 Days #60 tablet 01/11/20 Apixaban [Eliquis 5 mg Tablet] 5 mg PO BID 60 Days #30 tablet 01/11/20 Atorvastatin Calcium [Lipitor 40 mg Tablet] 40 mg PO QHS tablet 01/11/20 Cetirizine HCl [Zyrtec 10 mg Tablet] 10 mg PO DAILY tablet 01/11/20 Citalopram Hydrobromide [Celexa 20 mg Tablet] 10 mg PO DAILY tablet 01/11/20 Folic Acid [Folvite 1 mg Tablet] 1 mg PO DAILY tablet 01/11/20 Levofloxacin [Levaquin 500 mg Tablet] 500 mg PO DAILY 5 Days #5 tablet 01/11/20 Levothyroxine Sodium [Synthroid 0.075 mg Tablet] 0.075 mg PO MOTUWETHFR tablet 01/11/20 Metoprolol Tartrate [Lopressor 25 mg Tablet] 25 mg PO Q12 30 Days #60 tablet 01/11/20 History of Present Illiness History of Present Illness: ALONZO DAWKINS is a 64 year old female 64 year old female well-known to me from her recent admission. She has a history of coronary artery disease and was recently cardioverted after EL exam last week. She states that she felt good when she got out of the hospital. On Tuesday she began to feel tired and she felt "off ". When she woke up today she states that she still felt quite tired but thought if she took a shower she would feel better. She was in the shower when she became lightheaded and "fell". She states she fell against the door which opened thankfully and did not break. She had several sore areas but no significant injuries. She was going to her primary care provider's office and was instructed to go to the hospital. In the emergency department she was found to be hypotensive, back in atrial fibrillation with rapid ventricular response with a sodium of 121, potassium 3.5, magnesium 1.4 and a glucose of 232. Her urinalysis was markedly positive suggesting infection. The patient will receive IV fluids and antibiotics. We will correct her electrolytes. Her troponin was 0.08 and this could be due to the rapid ventricular response however I will obtain serial troponin studies. The patient will be admitted to [facility]. Hospital Course Hospital Course: 64 year old female well-known to me from her recent admission. She has a history of coronary artery disease and was recently cardioverted after EL exam last week. She states that she felt good when she got out of the hospital. On Tuesday she began to feel tired and she felt "off ". When she woke up today she states that she still felt quite tired but thought if she took a shower she would feel better. She was in the shower when she became lightheaded and "fell". She states she fell against the door which opened thankfully and did not break. She had several sore areas but no significant injuries. She was going to her primary care provider's office and was instructed to go to the hospital. In the emergency department she was found to be hypotensive, back in atrial fibrillation with rapid ventricular response with a sodium of 121, p otassium 3.5, magnesium 1.4 and a glucose of 232. Her urinalysis was markedly positive suggesting infection. The patient will receive IV fluids and antibiotics. We will correct her electrolytes. Her troponin was 0.08 and this could be due to the rapid ventricular response however I will obtain serial troponin studies. The patient will be admitted to [facility]. 01/08/20-patient is comfortable in the bed communicating well. Still tachycardic. Serum sodium came up to 127.7. Patient is receiving IV Rocephin for UTI. Discussed with Dr. Velazquez is going to come and see the patient. 01/09/[id number]-old female admitted with atrial for with rapid ventricular rate. Patient has a recent cardioversion at that time found to have a normal ejection fraction no right atrial appendage thrombus seen. Patient is scheduled for cardioversion again this afternoon. Plan is to continue Eliquis at this time and the patient is n.p.o. from midnight. 01/10/20-patient has cardioversion yesterday twice, patient is back in A. fib with heart rate is around 124 this morning. I spoke to Dr. Velazquez his recommendation is to adjust the beta-blockers at this time. Plan is to continue Eliquis at this time. 01/11/2020-patient is converted to sinus rhythm heart rate is 59 this morning. EKG shows first-degree heart block. Dr. Velazquez discussed the care with me his recommendation is to discharge the patient today and is going to follow-up with the patient in his office. He also requested me to continue metoprolol and Eliquis at this time. Physical Exam Vital Signs: Temp Pulse Resp BP Pulse Ox 98.4 F 58 L 16 132/53 H 99 01/11/20 11:28 01/11/20 11:28 01/11/20 11:28 01/11/20 11:28 01/11/20 11:28 Intake & Output 01/10/20 01/11/20 01/12/20 06:59 06:59 06:59 Intake Total 1859 2074 Balance 1859 2074 Weight 74.9 kg 75.3 kg General appearance: PRESENT: no acute distress, obese Head exam: PRESENT: normocephalic Eye exam: PRESENT: PERRLA Ear exam: PRESENT: normal external ear exam Mouth exam: PRESENT: neck supple Teeth exam: PRESENT: poor dentation Neck exam: ABSENT: carotid bruit, JVD, lymphadenopathy, thyromegaly Respiratory exam: PRESENT: decreased breath sounds Cardiovascular exam: PRESENT: RRR. ABSENT: diastolic murmur, rubs, systolic murmur GI/Abdominal exam: PRESENT: normal bowel sounds, soft. ABSENT: distended, guarding, mass, organolmegaly, rebound, tenderness Rectal exam: PRESENT: deferred Extremities exam: PRESENT: full ROM. ABSENT: calf tenderness, clubbing, pedal edema Neurological exam: PRESENT: alert, awake, oriented to person, oriented to place, oriented to time, oriented to situation, CN II-XII grossly intact. ABSENT: motor sensory deficit Psychiatric exam: PRESENT: appropriate affect, normal mood. ABSENT: homicidal ideation, suicidal ideation Results Laboratory Results: WBC 5.4 10^3/uL (4.0-10.5) 01/11/20 05:10 RBC 3.31 10^6/uL (3.72-5.28) L 01/11/20 05:10 Hgb 9.3 g/dL (12.0-15.5) L 01/11/20 05:10 Hct 27.3 % (36.0-47.0) L 01/11/20 05:10 MCV 82 fl (80-97) 01/11/20 05:10 MCH 28.2 pg (27.0-33.4) 01/11/20 05:10 MCHC 34.3 g/dL (32.0-36.0) 01/11/20 05:10 RDW 15.3 % (11.5-14.0) H 01/11/20 05:10 Plt Count 190 10^3/uL (150-450) 01/11/20 05:10 Lymph % (Auto) 18.9 % (13-45) 01/10/20 06:39 [place] % (Auto) 6.4 % (3-13) 01/10/20 06:39 Eos % (Auto) 5.5 % (0-6) 01/10/20 06:39 Baso % (Auto) 1.0 % (0-2) 01/10/20 06:39 Absolute Neuts (auto) 3.7 10^3/uL (1.7-8.2) 01/10/20 06:39 Absolute Lymphs (auto) 1.0 10^3/uL (0.5-4.7) 01/10/20 06:39 Absolute Monos (auto) 0.3 10^3/uL (0.1-1.4) 01/10/20 06:39 Absolute Eos (auto) 0.3 10^3/uL (0.0-0.6) 01/10/20 06:39 Absolute Basos (auto) 0.1 10^3/uL (0.0-0.2) 01/10/20 06:39 Seg Neutrophils % 68.2 % (42-78) 01/10/20 06:39 VBG pH 7.44 (7.30-7.42) H 01/07/20 13:41 VBG pCO2 34.6 mmHg (35-63) L 01/07/20 13:41 VBG HCO3 23.1 mmol/L (20-32) 01/07/20 13:41 VBG Base Excess -0.5 mmol/L 01/07/20 13:41 Sodium 129.8 mmol/L (137-145) L 01/10/20 06:39 Potassium 4.7 mmol/L (3.6-5.0) 01/10/20 06:39 Chloride 98 mmol/L (98-107) 01/10/20 06:39 Carbon Dioxide 24 mmol/L (22-30) 01/10/20 06:39 Anion Gap 8 (5-19) 01/10/20 06:39 BUN 12 mg/dL (7-20) 01/10/20 06:39 Creatinine 0.77 mg/dL (0.52-1.25) 01/10/20 06:39 Est GFR ( Amer) > 60 (>60) 01/10/20 06:39 Est GFR (MDRD) Non-Af > 60 (>60) 01/10/20 06:39 Glucose 142 mg/dL (75-110) H 01/10/20 06:39 POC Glucose 136 mg/dL (70-110) H 01/11/20 07:45 Hemoglobin A1c % 7.1 % (4.7-6.0) H 01/08/20 05:25 Calcium 8.5 mg/dL (8.4-10.2) 01/10/20 06:39 Phosphorus 2.4 mg/dL (2.5-4.5) L 01/10/20 06:39 Magnesium 1.6 mg/dL (1.6-2.3) 01/10/20 06:39 Total Bilirubin 0.5 mg/dL (0.2-1.3) 01/10/20 06:39 Direct Bilirubin 0.1 mg/dL (0.0-0.4) 01/10/20 06:39 Neonat Total Bilirubin Not Reportable 01/10/20 06:39 Neonat Direct Bilirubin Not Reportable 01/10/20 06:39 Neonat Indirect Bili Not Reportable 01/10/20 06:39 AST 33 U/L (14-36) 01/10/20 06:39 ALT 43 U/L (<35) H 01/10/20 06:39 Alkaline Phosphatase 113 U/L (38-126) 01/10/20 06:39 Creatine Kinase 73 U/L (30-135) 01/07/20 13:15 Troponin I 0.060 ng/mL 01/08/20 05:25 Total Protein 7.5 g/dL (6.3-8.2) 01/10/20 06:39 Albumin 3.7 g/dL (3.5-5.0) 01/10/20 06:39 Urine Color YELLOW 01/09/20 22:09 Urine Appearance CLEAR 01/09/20 22:09 Urine pH 6.0 (5.0-9.0) 01/09/20 22:09 Ur Specific [place] 1.020 01/09/20 22:09 Urine Protein 100 mg/dL (NEGATIVE) H 01/09/20 22:09 Urine Glucose (UA) >=500 mg/dL (NEGATIVE) H 01/09/20 22:09 Urine Ketones 20 mg/dL (NEGATIVE) H 01/09/20 22:09 Urine Blood NEGATIVE (NEGATIVE) 01/09/20 22:09 Urine Nitrite NEGATIVE (NEGATIVE) 01/09/20 22:09 Urine Bilirubin NEGATIVE (NEGATIVE) 01/09/20 22:09 Urine Urobilinogen NEGATIVE mg/dL (<2.0) 01/09/20 22:09 Ur Leukocyte Esterase MODERATE (NEGATIVE) H 01/09/20 22:09 Urine WBC (Auto) 7 /HPF 01/09/20 22:09 Urine RBC (Auto) 3 /HPF 01/09/20 22:09 U Hyaline Cast (Auto) 84 /LPF 01/07/20 14:20 Urine Bacteria (Auto) 1+ /HPF 01/07/20 14:20 Squamous Epi Cells Auto <1 /HPF 01/09/20 22:09 U Non-Squamous Epis Auto 4 /HPF 01/07/20 14:20 Urine Mucus (Auto) RARE /LPF 01/09/20 22:09 Urine Ascorbic Acid 40 (NEGATIVE) H 01/09/20 22:09 01/07/20 01/07/20 01/07/20 13:41 17:36 23:25 Troponin I 0.081 0.081 0.064 01/08/20 05:25 Troponin I 0.060 Impressions: Chest X-Ray 01/07/20 12:28 IMPRESSION: 1. Borderline cardiomegaly. No evidence for failure. 2. No acute pulmonary findings. Plan Time Spent: Greater than 30 Minutes Stroke Is this a Stroke Patient?: No Acute Heart Failure - Is this a Heart Failure Patient?: No
--- NOTE | 2020-01-11 16:40 | EKG REPORT ---
SEVERITY:- ABNORMAL ECG - SINUS RHYTHM VENTRICULAR PREMATURE COMPLEX LOW VOLTAGE IN FRONTAL LEADS CONSIDER LEFT VENTRICULAR HYPERTROPHY : Confirmed by: Marcus Costello MD 11-Jan-2020 16:39:52
[2020-01-12] MEDS ORDERED: LEVOTHYROXINE SODIUM 0.088 MG TABLET PO SCH (18:44)
== END 2020-01-11 12:19 | disposition home or self-care (01) | DRG 309 ==
LOC: ER 11:26 → EH 17:41 → 3W 20:05
PROVIDERS: ADMIT Hospitalist; ATTEND Internal Medicine
PROC: 5A2204Z Restoration of Cardiac Rhythm, Single (ICD-10-PCS; principal; 2020-01-09 13:15)
DX: I48.0 Paroxysmal atrial fibrillation (principal); N39.0 Urinary tract infection, site not specified; E87.1 Hypo-osmolality and hyponatremia; I25.10 Atherosclerotic heart disease of native coronary artery without angina pectoris; E78.5 Hyperlipidemia, unspecified; I10 Essential (primary) hypertension; J44.9 Chronic obstructive pulmonary disease, unspecified; F32.9 Major depressive disorder, single episode, unspecified; R31.9 Hematuria, unspecified; E86.0 Dehydration; E89.0 Postprocedural hypothyroidism; E11.65 Type 2 diabetes mellitus with hyperglycemia; B95.2 Enterococcus as the cause of diseases classified elsewhere; D64.9 Anemia, unspecified; Z95.5 Presence of coronary angioplasty implant and graft; Z90.49 Acquired absence of other specified parts of digestive tract; Z79.4 Long term (current) use of insulin; Z83.3 Family history of diabetes mellitus; Z82.49 Family history of ischemic heart disease and other diseases of the circulatory system; Z79.82 Long term (current) use of aspirin; Z88.2 Allergy status to sulfonamides; Z79.899 Other long term (current) drug therapy; Z79.890 Hormone replacement therapy
CPT/HCPCS: 36415; 410; 71045; 80053; 80069; 81001; 82550; 82803; 82962; 83036; 83735; 84484; 85025; 85027; 87040; 87086; 87088; 87186; 93005; 93010; 99285; J0696; J1815; J2001; J2704; J3475; J3480; J3490; J7030